=== PATIENT | male | born 1945 | race Caucasian/White ===

== ENCOUNTER 2024-08-20 14:00 | Outpatient (REF) | payer MEDICARE, SELFPAY ==
[2024-08-20 15:32] LABS: Hematocrit 35.9 % (42.0-52.0); Hemoglobin 12.5 g/dl (14.0-18.0); Mean Corpuscular HGB Conc 34.8 g/dl (31.0-36.0); Mean Corpuscular Hemoglobin 32.2 pg (27.0-33.0); Mean Corpuscular Volume 92.5 fL (80.0-98.0); Mean Platelet Volume 9.9 fL (9.4-12.4); Platelet Count 136 X10*3/uL (160-400); Red Blood Count 3.88 X10*6/uL (4.60-5.80); Red Cell Distribution Width 14.6 % (11.0-16.0); White Blood Count 8.5 X10*3/uL (4.8-10.8)
[2024-08-20 15:35] LABS: Appearance Urine Clear; Color Urine Dark Yellow; Glucose Urine UA Negative (Negative); Leukocyte Esterase Urine Negative (Negative); Nitrite Urine Negative (Negative); Specific Gravity - Urine 1.015 (1.005-1.025); UMIC TRIGGER UA YES; Urine Blood Negative (Negative); Urine Ketones Negative (Negative); Urine Protein 30 (1+) mg/dL (Neg-Trace)
[2024-08-20 16:10] LABS: Creatinine Urine 84.48 mg/dL; Total Protein Urine Random 19 mg/dL (<12)
[2024-08-20 16:18] LABS: Parathyroid Hormone Intact 99.7 pg/mL (8.7-77.1)
[2024-08-20 16:29] LABS: Alanine Aminotransferase 18 U/L (0-40); Albumin Level 4.2 g/dL (3.5-5.0); Alkaline Phosphatase 58 U/L (39-117); Anion Gap 13 (12-20); Aspartate Amino Transferase 21 U/L (5-37); Bilirubin Total 0.3 mg/dL (0.0-1.0); Blood Urea Nitrogen 50 mg/dL (9-16); Calcium 9.2 mg/dL (8.4-10.2); Carbon Dioxide 21 mmol/L (22-29); Chloride 111 mmol/L (96-108); Estimated Glomerular Filt Rate 23; Glucose Random 109 mg/dL (60-115); Potassium 5.2 mmol/L (3.3-5.1); Sodium 140 mmol/L (135-145); Total Protein 7.3 g/dL (6.5-8.0); Uric Acid 6.4 mg/dL (3.4-7.0)
[2024-08-20 16:31] LABS: Bacteria Urine None Seen (None Seen); RBC Urine 0-2 /HPF (0-2); Squamous Epithelial Cell Urine 0-2 /HPF (0-2); WBC Urine 0-5 /HPF (0-5)
== END 2024-08-20 14:01 | disposition home or self-care (01) ==
LOC: HO.LAB 14:00
PROVIDERS: PCP Internal Medicine; Referring Provider Internal Medicine; Visit Provider Internal Medicine Hypertension Specialist
DX: N18.9 Chronic kidney disease, unspecified (principal); I10 Essential (primary) hypertension; E87.5 Hyperkalemia; M10.9 Gout, unspecified; Z95.2 Presence of prosthetic heart valve
CPT/HCPCS: 36415; 80053; 81001; 82570; 83970; 84156; 84550; 85027; 99202

== ENCOUNTER 2024-08-20 14:00 | Outpatient (AMB) | payer MEDICARE, SELFPAY ==
[2024-08-20 14:02] VITALS: BP 154/78; PULSE 81; O2SAT 97; BMI 22.4
--- NOTE | 2024-08-20 14:02 | HO.NEPHOV ---
Vital Signs 08/20/24 14:02 Height 5 ft 7 in Weight 143 lb BMI 22.4 BP 154/78 H Blood Pressure Location Lt brachial Position Sitting Pulse 81 Pulse Source Pulse Oximeter Pulse Oximetry (%) 97 Oxygen Delivery Method Room Air Intake Visit Reasons: ENP: CKD/ Urgent Referral per PCP Administration Internship Required: No Accompanied by: Self / Same As Patient Allergies No Known Allergies Allergy (Verified 08/20/24 14:05) Medication List - Last Reconciled 08/20/24 by Raj Zambrano MD allopurinol 300 mg PO DAILY amlodipine 10 mg PO DAILY carvedilol 12.5 mg PO BID ezetimibe 10 mg PO DAILY irbesartan 300 mg PO DAILY tamsulosin 0.8 mg PO DAILY HPI Comments Details: Pleasant 79-year-old man referred for renal insufficiency. Ne underwent aortic valve surgery less than a year ago. For the past 1 year his blood pressure has been difficult to control he is on 3 medications including irbesartan 300 mg, carvedilol 12.5 mg b.i.d. and amlodipine 10 mg. About 6 months ago he had acute urinary retention requiring Oropeza catheter for a week. Apparently no blood test was done and did not undergo any further workup. He is on tamsulosin for possible BPH. He can not recall having a renal ultrasonogram. In November of 2023 serum creatinine was 1.24. In December 2023 creatinine was 2.2 and as of April of 2024 creatinine is at 2.8 with a EGFR of 22 mL/minute and hence this consultation No history of smoking or alcohol use. He is a retired psychiatrist. He has spent his winter in [facility]. [facility] Surgical History (Updated 08/20/24 @ 14:49 by Raj Zambrano MD) Heart valve replaced (~08/2023) Family History (Updated 08/20/24 @ 14:05 by CRISTIAN Noguera) Father Hypertension Kidney disease Review of Systems Const Denies fever(s) and Denies weight loss Card Denies chest pain Resp Denies cough and Denies hemoptysis GI Denies abdominal pain, Denies diarrhea and Denies nausea Reports urinary frequency and Denies urinary incontinence Musc Denies back pain Neuro Denies focal weakness Physical Exam Vital Signs: Last Vital Signs Pulse 81 08/20/24 14:02 BP 154/78 H 08/20/24 14:02 Pulse Ox 97 08/20/24 14:02 Oxygen Delivery Method Room Air 08/20/24 14:02 BMI result Body Mass Index 22.4 Const General: comfortable; No acute distress Orientation/consciousness: patient oriented x3 Eyes General: appearance normal, both eyes and all related structures Visual Lo: normal visual lo by confrontation Neck Neck: Yes supple and Yes no JVD Resp Effort & Inspection: normal respiratory effort and respiratory effort not decreased Cardio Palpation: no palpable S3 and no palpable S4 Heart sounds: no rubs GI Inspection: Yes normal to inspection Palpation (GI): Soft to palpation Percussion: Yes normal to percussion Auscultation: normal bowel sounds General: Yes no CVA tenderness Back/Spine/Pelvis Back: no CVA tenderness Skin General skin exam: no petechiae and no purpura Neuro General: patient oriented x3 and no focal motor deficits Extrem General: No clubbing and No edema Results Reviewed Results Reviewed: Labs was from April 2024 was reviewed Potassium 5.3 Creatinine 2.8 EGFR 22 mL/minute. Nephrology Results: No Data to Display Assessment & Plan Assessment & Plan (1) CKD (chronic kidney disease): Code(s): N18.9 - Chronic kidney disease, unspecified Category: Medical Plan: I (2) HTN (hypertension): Code(s): I10 - Essential (primary) hypertension Category: Medical (3) Aortic valve replaced: Code(s): Z95.2 - Presence of prosthetic heart valve Category: Medical (4) Gout: Code(s): M10.9 - Gout, unspecified Category: Medical (5) Hyperkalemia: Code(s): E87.5 - Hyperkalemia Category: Medical Plan CKD: Differential diagnosis includes obstructive uropathy in the setting of enlarged prostate. There could be a component of hypoperfusion leading to MICHAEL Other possibilities include doing glomerular nephritis interstitial disease need to be ruled out. I will obtain stat renal ultrasonogram. Recheck renal panel today along with potassium Hold irbesartan in view of hyperkalemia and MICHAEL Encouraged to stay on low-potassium diet Check uric acid and we will lower dose of allopurinol In the office today blood pressure was elevated. I have asked him to check his blood pressure at home and if systolic blood pressure stays elevated more than 140 mm I will add hydralazine 10 mg t.i.d. and gradually titrate the dose. Further workup will be based on the outcome of the above baseline investigations. Shall keep you updated Orders: Orders Comprehensive Met. Panel Today N18.9 - Chronic kidney disease, unspecified Total Protein Urine Random Today N18.9 - Chronic kidney disease, unspecified Parathyroid Hormone Intact Today N18.9 - Chronic kidney disease, unspecified Basic Metabolic Panel 3 Weeks N18.9 - Chronic kidney disease, unspecified Uric Acid Today N18.9 - Chronic kidney disease, unspecified US renal BI Today I10 - Essential (primary) hypertension Complete Blood Count no Diff Today N18.9 - Chronic kidney disease, unspecified UA and rflx microscopic Today N18.9 - Chronic kidney disease, unspecified Creatinine Urine Today N18.9 - Chronic kidney disease, unspecified Medications: New hydralazine 10 mg PO TID 90 tabs 1RF Coding Level of Care Code New Pt Level 4 (81735) Diagnoses CKD (chronic kidney disease) N18.9 HTN (hypertension) I10 Aortic valve replaced Z95.2 Gout M10.9 Hyperkalemia E87.5
== END 2024-08-20 14:36 | disposition home or self-care (01) ==
LOC: HO.HKA 14:00
PROVIDERS: PCP Internal Medicine; Referring Provider Internal Medicine; Visit Provider Internal Medicine Hypertension Specialist
DX: I12.9 Hypertensive chronic kidney disease with stage 1 through stage 4 chronic kidney disease, or unspecified chronic kidney disease (principal); N18.9 Chronic kidney disease, unspecified; Z95.2 Presence of prosthetic heart valve; M10.9 Gout, unspecified; E87.5 Hyperkalemia
CPT/HCPCS: 99204

== ENCOUNTER 2024-08-31 09:17 | Outpatient (REF) | payer MEDICARE, SELFPAY ==
--- NOTE | ~2024-08-31 | US_ITS ---
CLINICAL HISTORY: I10 - Essential (primary) hypertension US renal with Color Doppler Comparison: None Findings: Right kidney is slightly diminutive in size relative to the left measuring 8.1 cm length. No hydronephrosis calculus or mass. Normal color flow. Incidental renal cortical cyst lower pole measuring 3 x 2 x 3 mm Left kidney normal size and echotexture, 10.8 cm length. No hydronephrosis. No nephrolithiasis. Exophytic cyst lower pole with thin septations measuring 6.1 x 5.9 x 5.5 cm correlate with dedicated CT or MRI with contrast study renal protocol exam Impression: 1. The right kidney slightly diminutive in size relative to the left. 2. Exophytic cyst lower pole left kidney with thin septations better characterize with a contrast-enhanced MRI or CT renal protocol study. This document has been electronically signed by: Marino Porter MD on 08/31/2024 10:24:07
== END 2024-08-31 09:18 | disposition home or self-care (01) ==
LOC: HO.US 09:17
PROVIDERS: PCP Internal Medicine; Visit Provider Internal Medicine Hypertension Specialist
DX: I10 Essential (primary) hypertension (principal)
CPT/HCPCS: 76775

== ENCOUNTER 2024-09-17 13:38 | Outpatient (AMB) | payer MEDICARE, SELFPAY ==
--- NOTE | 2024-09-17 13:51 | HO.NEPHOV ---
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 En underwent aortic valve surgery less than a year ago. For the past 1 year his blood pressure has been difficult to control he is on 3 medications including irbesartan 300 mg, carvedilol 12.5 mg b.i.d. and amlodipine 10 mg. About 6 months ago he had acute urinary retention requiring Oropeza catheter for a week. Apparently no blood test was done and did not undergo any further workup. He is on tamsulosin for possible BPH. He can not recall having a renal ultrasonogram. In November of 2023 serum creatinine was 1.24. In December 2023 creatinine was 2.2 and as of April of 2024 creatinine is at 2.8 with a EGFR of 22 mL/minute and hence this consultation No history of smoking or alcohol use. 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. 09/17/24 79-year-old male presenting with elevated blood pressure. He has been experiencing erratic hypertension since undergoing aortic valve surgery about a year ago. Despite compliance with medications including losartan, carvedilol, and amlodipine, his blood pressure remains elevated, with recent readings reaching up to 180/90 mmHg. He adheres strictly to a low-salt diet and participates in regular exercise. Swelling in the feet, likely due to amlodipine, has been noted. According to historical records, his essential hypertension developed post-surgery, impacting current management strategies. The patient also reports concerns regarding a renal cyst discovered on August 31. Imaging results indicate a complex cyst on the left kidney, with mention of the right kidney being smaller. This finding is being further evaluated by a urologist due for follow-up on November 20. The ongoing review includes potential renal artery evaluation using Doppler ultrasound, as a result of hypertension, kidney injury, or medication effects. His chronic kidney disease has been managed with stable creatinine levels reported at 2.6 mg/dL, coupled with consistently low protein presence and unremarkable urine sediment. The patient has no family history of kidney disease but expresses concern, given his familial predisposition to hypertension. FOR[facility]LY [facility], [facility] Surgical History Heart valve replaced (~08/2023) Family History Father Hypertension Kidney disease Physical Exam Vital Signs: Last Vital Signs Pulse 78 09/17/24 13:52 BP 180/92 H 09/17/24 13:52 Pulse Ox 97 09/17/24 13:52 Oxygen Delivery Method Room Air 09/17/24 13:52 BMI result Body Mass Index 22.4 Const General: comfortable; No acute distress Orientation/consciousness: patient oriented x3 Eyes General: appearance normal, both eyes and all related structures Visual Lo: normal visual lo by confrontation Neck Neck: Yes supple and Yes no JVD Resp Effort & Inspection: normal respiratory effort and respiratory effort not decreased Cardio Palpation: no palpable S3 and no palpable S4 Heart sounds: no rubs GI Inspection: Yes normal to inspection Palpation (GI): Soft to palpation Percussion: Yes normal to percussion Auscultation: normal bowel sounds General: Yes no CVA tenderness Back/Spine/Pelvis Back: no CVA tenderness Skin General skin exam: no petechiae and no purpura Neuro General: patient oriented x3 and no focal motor deficits Extrem General: No clubbing and No edema Results Reviewed Nephrology Results: Hgb 12.5 g/dl (14.0-18.0) L 08/20/24 WBC 8.5 X10*3/uL (4.8-10.8) 08/20/24 Plt Count 136 X10*3/uL (160-400) L 08/20/24 Sodium 140 mmol/L (135-145) 08/20/24 Potassium 5.2 mmol/L (3.3-5.1) H 08/20/24 Chloride 111 mmol/L (96-108) H 08/20/24 Carbon Dioxide 21 mmol/L (22-29) L 08/20/24 BUN 50 mg/dL (9-16) H 08/20/24 Creatinine 2.66 mg/dL (0.5-1.4) H 08/20/24 Calcium 9.2 mg/dL (8.4-10.2) 08/20/24 PTH Intact 99.7 pg/mL (8.7-77.1) H 08/20/24 Urine Protein 30 (1+) mg/dL (Neg-Trace) H 08/20/24 Urine Creatinine 84.48 mg/dL 08/20/24 Renal US 08/31/24 Assessment & Plan Assessment & Plan (1) CKD (chronic kidney disease): Code(s): N18.9 - Chronic kidney disease, unspecified Category: Medical Plan: I (2) HTN (hypertension): Code(s): I10 - Essential (primary) hypertension Category: Medical (3) Aortic valve replaced: Code(s): Z95.2 - Presence of prosthetic heart valve Category: Surgical (4) Gout: Code(s): M10.9 - Gout, unspecified Category: Medical (5) Hyperkalemia: Code(s): E87.5 - Hyperkalemia Category: Medical Plan CKD: Hypertensive nephrosclerosis There could be a component of hypoperfusion leading to MICHAEL Other possibilities include doing glomerular nephritis interstitial disease need to be ruled out. renal ultrasonogram. NO obstruction Renal cyst noted Hold irbesartan in view of hyperkalemia and MICHAEL Encouraged to stay on low-potassium diet In the office today blood pressure was elevated. INCREASE hydralazine 25 mg t.i.d. and gradually titrate the dose. Obtain doppler of renal artery for possible ZULMA Await Urology evaluation for renal cyst Orders: Orders Basic Metabolic Panel 6 Weeks N18.9 - Chronic kidney disease, unspecified US renal doppler Today E87.5 - Hyperkalemia, I10 - Essential (primary) hypertension Medications: Changed From hydralazine 10 mg PO TID 270 tabs 4RF To hydralazine 25 mg PO TID 90 tabs 4RF Coding Level of Care Code Est Pt Level 4 (29899) Diagnoses CKD (chronic kidney disease) N18.9 HTN (hypertension) I10 Aortic valve replaced Z95.2 Gout M10.9 Hyperkalemia E87.5
[2024-09-17 13:52] VITALS: BP 180/92; PULSE 78; O2SAT 97; BMI 22.4
--- OUTSIDE RECORDS SUMMARY | 2024-09-17 16:11 | XMS_ITS | Clinical Summary ---
Author Organization [facility], Address [address] [place] [address] Phone Care Team Providers Care Mortgage Loan Assistant Name Role Phone Gerson Mitchell MD Primary Care Provider [phone] Encounters Date Type Department Care Team Description 09/02/2024 Documentation Only [facility] [address] [place] [phone] Rosemarie Leonardo MA 09/02/2024 Telephone [facility] [address] [place] [phone] Rosemarie Leonardo MA from Last 3 Months Social History Tobacco Use Types Packs/Day Years Used Date Smoking Tobacco: Never Assessed Sex and Gender Information Value Date Recorded Sex Assigned at Not on file Legal Sex Male 3:44 PM EDT Gender Identity Not on file Sexual Orientation Not on file Plan of Treatment Health Maintenance Due Date Last Done Comments Pneumococcal Vaccine: 50+ Years Completed 12/14/2015, 08/24/2010 Influenza Vaccine Completed 03/02/2024, , 01/12/2021, Additional history exists Hepatitis B Vaccine Aged Out No longe r eligible based on patient's age to complete this topic Insurance Medicare [facility] Care Teams Mortgage Loan Assistant Relationship Specialty Start Date End Date Gerson Mitchell MD [address] [place] [address] [address] [place] [address] PCP - General Internal Medicine 09/02/24
== END 2024-09-17 14:17 | disposition home or self-care (01) ==
LOC: HO.HKA 13:39
PROVIDERS: PCP Internal Medicine; Visit Provider Internal Medicine Hypertension Specialist
DX: I12.9 Hypertensive chronic kidney disease with stage 1 through stage 4 chronic kidney disease, or unspecified chronic kidney disease (principal); N18.9 Chronic kidney disease, unspecified; Z95.2 Presence of prosthetic heart valve; M10.9 Gout, unspecified; E87.5 Hyperkalemia
CPT/HCPCS: 99214

== ENCOUNTER → 2024-09-17 13:38 | Outpatient (BNVA) | payer MEDICARE, SELFPAY | PROVIDERS: PCP Internal Medicine; Visit Provider Internal Medicine Hypertension Specialist | DX: I12.9 Hypertensive chronic kidney disease with stage 1 through stage 4 chronic kidney disease, or unspecified chronic kidney disease (principal); N18.9 Chronic kidney disease, unspecified; M10.9 Gout, unspecified; E78.5 Hyperlipidemia, unspecified; Z95.2 Presence of prosthetic heart valve | CPT/HCPCS: 99212 ==

== ENCOUNTER 2024-10-26 15:51 | Outpatient (REF) | payer MEDICARE, SELFPAY ==
--- NOTE | ~2024-10-26 | US_ITS ---
EXAMINATION: Ultrasound renal bilaterally. Ultrasound renal Doppler bilaterally. CLINICAL INFORMATION: Essential/primary hypertension. Hyperkalemia. COMPARISON: August 31, 2024. TECHNIQUE: Real-time ultrasound kidneys using grayscale and color Doppler technique. Spectral color Doppler analysis of the main renal arteries and the abdominal aorta at the renal artery origin. FINDINGS: Right kidney: 7 x 4 x 4 cm. Normal echotexture. Normal renal cortical thickness. No hydronephrosis. There is a 2.5 mm hyperechoic structure at the corticomedullary junction of the upper pole. Left kidney: 10 x 6 x 6 cm. Normal echotexture. Renal cortical thinning. No hydronephrosis. There is a large, 7 cm exophytic anechoic lesion without flow on color Doppler interrogation. There are septations and questionable nodular component without flow on color Doppler interrogation. There is a 1.8 cm exophytic anechoic lesion without septations or nodular component in the lower pole. SPECTRAL DOPPLER ANALYSIS: Right Kidney: -Peak systolic velocity in the proximal right renal artery = 34 cm/s. Normal waveforms. -Peak systolic velocity in the mid right renal artery = 123 cm/s. Normal waveforms. -Peak systolic velocity in the distal right renal artery = 107 cm/s. Normal waveforms. -Patent right renal vein. -Upper pole interlobar artery resistive index of 0.5. -Midpole interlobar artery resistive index of 0.5. -Lower pole interlobar artery resistive index of 0.5. RAR right = not calculated. Left Kidney: -Peak systolic velocity in the proximal left renal artery = 133 cm/s. Normal waveforms. -Peak systolic velocity in the mid left renal artery = 72 cm/s. Normal waveforms. -Peak systolic velocity in the distal left renal artery = 48 cm/s. Normal waveforms. -Patent left renal vein. -Upper pole interlobar artery resistive index of 0.6. -Mid pole interlobar artery resistive index of 0.77. -lower pole interlobar artery resistive index of not calculated due to large cystic lesion.. RAR left = not calculated Aorta: -Peak systolic velocity = 136 cm/s. US/US renal doppler IMPRESSION: No hydronephrosis. 7 cm exophytic complex cystic lesion, left kidney. Recommend dedicated IV contrast enhanced CT versus dynamic enhanced MRI renal mass protocol. 2.5 mm nonobstructing nephrolithiasis, right kidney. No hemodynamically significant stenosis by ultrasound criteria at either main renal artery. Electronically signed by: Jayy Castañeda MD 10/27/2024 07:18 AM EDT
--- OUTSIDE RECORDS SUMMARY | 2024-10-26 16:51 | XMS_ITS | Clinical Summary ---
Author Organization [facility], Address [address] [place] [address] Phone Care Team Providers Care Translational Specialist Name Role Phone Gerson Mitchell MD Primary Care Provider [phone] Encounters Date Type Department Care Team Description 09/02/2024 Documentation Only [facility] [address] [place] [phone] Rosemarie Leonardo MA 09/02/2024 Telephone [facility] [address] [place] [phone] Rosemarie Leonardo MA from Last 3 Months Social History Tobacco Use Types Packs/Day Years Used Date Smoking Tobacco: Never Assessed Sex and Gender Information Value Date Recorded Sex Assigned at Not on file Legal Sex Male 3:44 PM EDT Gender Identity Not on file Sexual Orientation Not on file Plan of Treatment Health Maintenance Due Date Last Done Comments Influenza Vaccine (#1) 2024 4, 01/02/2023, 01/12/2021, Additional history exists Pneumococcal Vaccine: 50+ Years Completed 12/14/2015, 08/24/2010 Hepatitis B Vaccine Aged Out No longe r eligible based on patient's age to complete this [place] [id number] Medicare [facility] Care Teams Translational Specialist Relationship Specialty Start Date End Date Gerson Mitchell MD [address] [place] [address] [address] [place] [address] PCP - General Internal Medicine 09/02/24
== END 2024-10-26 15:52 | disposition home or self-care (01) ==
LOC: HO.US 15:51
PROVIDERS: PCP Internal Medicine; Visit Provider Internal Medicine Hypertension Specialist
DX: E87.5 Hyperkalemia (principal); I10 Essential (primary) hypertension
CPT/HCPCS: 76775; 93975

== ENCOUNTER → 2024-10-26 15:53 | Outpatient (BNV) | payer MEDICARE, SELFPAY | PROVIDERS: PCP Internal Medicine; Visit Provider Radiology Diagnostic Radiology | DX: I10 Essential (primary) hypertension (principal); N28.1 Cyst of kidney, acquired; N20.0 Calculus of kidney | CPT/HCPCS: 76775; 93975 ==

== ENCOUNTER 2024-11-12 10:38 | Outpatient (AMB) | payer MEDICARE, SELFPAY ==
[2024-11-12 10:47] VITALS: BP 142/81; PULSE 69; O2SAT 98; BMI 22.0
--- NOTE | 2024-11-12 10:47 | HO.NEPHOV_ITS ---
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 Maintenance Tech Required: No Accompanied by: Self / Same As Patient Allergies No Known Allergies Allergy (Verified 11/12/24 10:51) Medication List - Last Reconciled 11/12/24 by Raj Zambrano MD amlodipine 10 mg PO DAILY carvedilol 12.5 mg PO BID ezetimibe 10 mg PO DAILY hydralazine 25 mg PO TID tamsulosin 0.8 mg PO DAILY Do you need a note to return to daycare/school/sports/work: No HPI Comments Details: Pleasant 79-year-old man referred for renal insufficiency. Ne underwent aortic valve surgery less than a year ago. For the past 1 year his blood pressure has been difficult to control he is on 3 medications including irbesartan 300 mg, carvedilol 12.5 mg b.i.d. and amlodipine 10 mg. About 6 months ago he had acute urinary retention requiring Oropeza catheter for a week. Apparently no blood test was done and did not undergo any further workup. He is on tamsulosin for possible BPH. He can not recall having a renal ultrasonogram. In November of 2023 serum creatinine was 1.24. In December 2023 creatinine was 2.2 and as of April of 2024 creatinine is at 2.8 with a EGFR of 22 mL/minute and hence this consultation No history of smoking or alcohol use. He is a retired psychiatrist. He has spent his winter in [facility]. 09/17/24 79-year-old male presenting with elevated blood pressure. He has been experiencing erratic hypertension since undergoing aortic valve surgery about a year ago. Despite compliance with medications including losartan, carvedilol, and amlodipine, his blood pressure remains elevated, with recent readings reaching up to 180/90 mmHg. He adheres strictly to a low-salt diet and participates in regular exercise. Swelling in the feet, likely due to amlodipine, has been noted. According to historical records, his essential hypertension developed post-surgery, impacting current management strategies. The patient also reports concerns regarding a renal cyst discovered on August 31. Imaging results indicate a complex cyst on the left kidney, with mention of the right kidney being smaller. This finding is being further evaluated by a urologist due for follow-up on November 20. The ongoing review includes potential renal artery evaluation using Doppler ultrasound, as a result of hypertension, kidney injury, or medication effects. His chronic kidney disease has been managed with stable creatinine levels reported at 2.6 mg/dL, coupled with consistently low protein presence and unremarkable urine sediment. The patient has no family history of kidney disease but expresses concern, given his familial predisposition to hypertension. 11/12/2024. Here for follow-up. No specific complaints today. Underwent renal ultrasonogram with Doppler. No evidence of renal artery stenosis Has not seen Urology yet for renal cyst Referral was based in August 2024. PSA has been elevated and he has an appointment in [place] in the next 2 weeks with a different urologist [facility] Surgical History Heart valve replaced (~08/2023) Family History Father Hypertension Kidney disease Physical Exam Vital Signs: Last Vital Signs Pulse 69 11/12/24 10:47 BP 142/81 H 11/12/24 10:47 Pulse Ox 98 11/12/24 10:47 Oxygen Delivery Method Room Air 11/12/24 10:47 BMI result Body Mass Index 22.0 Const General: comfortable; No acute distress Orientation/consciousness: patient oriented x3 Eyes General: appearance normal, both eyes and all related structures Visual Lo: normal visual lo by confrontation Neck Neck: Yes supple and Yes no JVD Resp Effort & Inspection: normal respiratory effort and respiratory effort not decreased Cardio Palpation: no palpable S3 and no palpable S4 Heart sounds: no rubs GI Inspection: Yes normal to inspection Palpation (GI): Soft to palpation Percussion: Yes normal to percussion Auscultation: normal bowel sounds General: Yes no CVA tenderness Back/Spine/Pelvis Back: no CVA tenderness Skin General skin exam: no petechiae and no purpura Neuro General: patient oriented x3 and no focal motor deficits Extrem General: No clubbing and No edema Results Reviewed Results Reviewed: October 2024 Creatinine 2.6 potassium 4.2. Nephrology Results: Hgb, (14.0-18.0) 12.5 g/dl L 08/20/24 WBC, (4.8-10.8) 8.5 X10*3/uL 08/20/24 Plt Count, (160-400) 136 X10*3/uL L 08/20/24 Sodium, (135-145) 140 mmol/L 08/20/24 Potassium, (3.3-5.1) 5.2 mmol/L H 08/20/24 Chloride, (96-108) 111 mmol/L H 08/20/24 Carbon Dioxide, (22-29) 21 mmol/L L 08/20/24 BUN, (9-16) 50 mg/dL H 08/20/24 Creatinine, (0.5-1.4) 2.66 mg/dL H 08/20/24 Calcium, (8.4-10.2) 9.2 mg/dL 08/20/24 PTH Intact, (8.7-77.1) 99.7 pg/mL H 08/20/24 Urine Protein, (Neg-Trace) 30 (1+) mg/dL H 08/20/24 Urine Creatinine 84.48 mg/dL 08/20/24 Renal US 10/26/24 Assessment & Plan Assessment & Plan (1) CKD (chronic kidney disease): Code(s): N18.9 - Chronic kidney disease, unspecified Category: Medical Plan: I (2) HTN (hypertension): Code(s): I10 - Essential (primary) hypertension Category: Medical (3) Aortic valve replaced: Code(s): Z95.2 - Presence of prosthetic heart valve Category: Surgical (4) Gout: Code(s): M10.9 - Gout, unspecified Category: Medical (5) Hyperkalemia: Code(s): E87.5 - Hyperkalemia Category: Medical Plan CKD: Hypertensive nephrosclerosis There could be a component of hypoperfusion leading to MICHAEL Other possibilities include doing glomerular nephritis interstitial disease need to be ruled out. renal ultrasonogram. NO obstruction Renal cyst noted Hold irbesartan in view of hyperkalemia and MICHAEL Encouraged to stay on low-potassium diet In the office today blood pressure was elevated. INCREASE hydralazine 25 mg t.i.d. and gradually titrate the dose. Obtain doppler of renal artery for possible ZULMA Await Urology evaluation for renal cyst 11/12/2024. CKD 4. Renal function stable at baseline. Hyperkalemia stance corrected. Hypertension blood pressure is well controlled. No renal artery stenosis by renal Doppler. Mild leg edema due to amlodipine. Complex renal cyst. Await Urology evaluation. He is going to [place] and we will follow up with the urologist there. I gave him the option to see the urologist here locally but he preferred to stay in [place]. Orders: Orders Basic Metabolic Panel 3 Months I10 - Essential (primary) hypertension, N18.9 - Chronic kidney disease, unspecified Coding Level of Care Code Est Pt Level 4 (92602) Diagnoses CKD (chronic kidney disease) N18.9 HTN (hypertension) I10 Aortic valve replaced Z95.2 Gout M10.9 Hyperkalemia E87.5
--- OUTSIDE RECORDS SUMMARY | 2024-11-12 11:23 | XMS_ITS | Clinical Summary ---
Author Organization [facility], Address [address] [place] [address] Phone Care Team Providers Care Circulation Director Name Role Phone Gerson Mitchell MD Primary Care Provider [phone] Encounters Date Type Department Care Team Description 09/02/2024 Documentation Only [facility] [address] [place] [id number] Rosemarie Leonardo MA 09/02/2024 Telephone [facility] [address] [place] [phone] Rosemarie Leonardo MA from Last 3 Months [...] complete this [place] [id number] Medicare [facility] Care Teams Circulation Director Relationship Specialty Start Date End Date Gerson Mitchell MD [address] [place] [address] [address] [place] [address] PCP - General Internal Medicine 09/02/24
--- OUTSIDE RECORDS SUMMARY | 2024-11-12 11:23 | XMS_ITS | Clinical Summary ---
Author Organization Located Within [facility] Address [address] [place] [id number] Phone Care Team Providers Care Laborer Name Role Phone Danay Roman MANAGER FRENCH Unavailable [phone] Abi Mcfarland FIGURE SKATER Unavailable [phone] Gerson Mitchell MD Primary Care Provider [phone] Gerson Mitchell MD Unavailable [phone] Rickie Turner MD Unavailable [phone] Allergies No known active allergies Medications GRAPE SEED EXTRACT, BULK, MISC Active BROMELAINS ORAL Take 1 capsule by mouth as needed. Active b complex vitamins capsule Take 1 capsule by mouth daily. Active aspirin 81 MG EC tablet Take 1 tablet (81 mg total) by mouth daily. 90 tablet 5 09/16/19 24 Active colchicine (COLCRYS) 0.6 mg tablet Take 0.6 mg by mouth as needed (gout flare). 09/28/19 24 Active amoxicillin (AMOXIL) 500 MG capsule Take 4 capsules (2,000 mg total) by mouth once as needed (take all 4 capsules 30-60 minutes prior to dental work). 12 capsule 11/15/19 24 Active Additional Information Patient not taking.Reported on 10/27/2024 ezetimibe (ZETIA) 10 mg tablet Take 1 tablet (10 mg total) by mouth daily. 90 tablet 5 01/09/20 24 Active carvedilol (COREG) 12.5 MG tablet Take 1 tablet (12.5 mg total) by mouth 2 (two) times a day with meals. 180 tablet 5 01/09/20 24 025 Active Additional Information Patient taking differently:12.5 mg Oral3 times daily, Reported on 10/27/2024 irbesartan (AVAPRO) 300 MG tabletIndication s:Essential hypertension Take 1 tablet (300 mg total) by mouth daily. 90 tablet 1 07/09/19 25 Active Additional Information Patient not taking.Reported on 10/27/2024 tamsulosin (FLOMAX) 0.4 mg CapIndications:B PH associated with nocturia Take 2 capsules (0.8 mg total) by mouth nightly at bedtime. 180 capsule 2 07/28/19 25 Active hydrALAZINE (APRESOLINE) 25 MG tablet Take 1 tablet (25 mg total) by mouth 3 (three) times a day. 90 tablet 5 11/05/19 25 Active amLODIPine (NORVASC) 10 MG tabletIndication s:Essential hypertension Take 1 tablet (10 mg total) by mouth daily. 90 tablet 3 11/05/19 25 025 Active amLODIPine (NORVASC) 10 MG tabletIndication s:Essential hypertension Take 1 tablet (10 mg total) by mouth daily. 90 tablet 3 09/18/19 25 025 Discontin ued(Reord er) hydrALAZINE (APRESOLINE) 10 MG tablet Take 10 mg by mouth 3 (three) times a day. 09/16/19 25 025 Discontin ued(Reord er) Hospital, Clinic, or Other Facility Administered Medication Ordered Dose Route Frequency Start Date End Date Status sodium chloride (NS) 0.9 % syringe flush 3 mL 3 mL IV As needed 09/16/2023 Active Active Problems Problem Noted Date Diagnosed Date Presence of prosthetic heart valve 11/14/2023 Adverse effect of anesthetic 11/13/2023 Overview (11/13/2023): difficulty voiding after surgery Aortic valve disease 11/13/2023 Carotid stenosis 11/13/2023 Overview (11/13/2023): s/p CEA HTN (hypertension) 11/13/2023 Wears glasses 11/13/2023 Chronic kidney disease 11/13/2023 Assessment & Plan (04/13/2024 9:28 AM EST): Seems that his creatinine is worsening. Now up to 2.8 from 2.2 in November He did get a CTA done about a month ago He is not hydrating well he says I have encouraged him to maintain good hydration I have asked him to set up follow-up with his PCP as he does not have any follow-up currently scheduled Recheck labs in a month Nonrheumatic aortic valve stenosis 09/16/2023 Assessment & Plan (10/27/2024 8:50 AM EDT): TAVR with a 23 mm YANETH valve on 11/14/2023. Echo on 09/2024-Mild to moderate LVH with dynamic LV systolic function EF 65 to 70%. Normal PA pressure estimation. Normal RV size and function. Normal diastolic function for age. There is a TAVR in the aortic position peak velocity 3.3 m/s mean gradient 24 mmHg. Appears to function normally and is well-seated. Unchanged from prior echoes. We will continue with yearly echoes. Patient actually still is in cardiac rehab has 4 more visits and he is doing well with exercise. Assessment & Plan (04/13/2024 9:22 AM EST): TAVR with a 23 mm YANETH valve on 11/14/2023 Valve functioning well on cardiac CTA which was done 03/10/2024 He is already scheduled for repeat echocardiogram in September 2024 He can follow-up here in the office after echo is completed Nonischemic cardiomyopathy 09/06/2023 Dyspnea on exertion 09/04/2023 Assessment & Plan (09/04/2023 10:21 AM EDT): Patient reporting new dyspnea on exertion, which does seem to be consistent with when he restarted irbesartan 150 mg daily. EKG in office shows a new RBBB; reviewed these results with Dr. Mitchell, collaborating physician. Recommendation for nuclear stress test and echocardiogram for further evaluation of symptoms and EKG changes. Patient in agreement with plan. We discussed red flags that would prompt sooner evaluation at ED, such as shortness of breath that does not resolve at rest, or new chest pain. Systolic murmur 09/04/2023 Assessment & Plan (09/04/2023 9:06 AM EDT): As above, patient does have a chronic systolic murmur. Last echocardiogram in 2019 reviewed. Will update echocardiogram, with evaluation of valvular function. Stage 3b chronic kidney disease 07/24/2023 Assessment & Plan (09/04/2023 9:06 AM EDT): Asymptomatic. Patient advised on adequate fluid intake, low sodium and potassium intake, and avoiding renal toxic medications. Assessment & Plan (07/24/2023 10:54 AM EDT): Asymptomatic. Patient advised on adequate fluid intake, low sodium and potassium intake, and avoiding renal toxic medications. Will repeat BMP in 6 weeks for reevaluation. 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 Monitor and follow-up for any acute flareups. 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 He has no focal neurologic deficits on exam making acute stroke less likely. His history of greater than 90% left carotid stenosis for which he underwent endarterectomy 2-3 years ago, and evidence of lacunar infarct on CT scan of the brain today are concerning. He should have full workup for stroke/TIA. Plan to monitor on telemetry, check lipid panel and hemoglobin A 1C. He self discontinued low-dose aspirin some time ago, will resume at higher dose. Echo, MRI and MRA the brain ordered for the morning. Benign prostatic hyperplasia 08/28/2017 Assessment & Plan (07/24/2023 10:54 AM EDT): Ongoing issues with urinary frequency and urgency. Elevated PSA. Will place referral to [facility] urology for further evaluation; patient would be interested in PAE as treatment option for his BPH. Assessment & Plan (08/28/2017 2:19 PM EDT): Stable on [place]. F/u for any worsening urinary frequency or urgency. Pt verbalizes understanding and in agreement with plan. Hyperlipidemia 08/28/2017 Assessment & Plan (10/27/2024 8:51 AM EDT): Patient previously intolerant to statins. He has been taking Zetia 10 mg daily most recent LDL 125. Patient would like to get an updated lipid panel I have ordered this. He can discuss PCSK9 inhibitor if needed with at his next follow-up depending on what his updated LDL shows. Assessment & Plan (04/13/2024 9:23 AM EST): His lipids have significant improved since he was started on Zetia. Previously intolerant to statins so is not on statin therapy at this time. Ideally would like to see his LDL lower. Unsure about PCSK9 inhibitor at this time. We can discuss further with Dr. Turner when he follows up with him next. Continue Zetia Lab Results Component Value Date CHOL 185 04/11/2024 HDL 46 04/11/2024 LDL 125 04/11/2024 TRIG 71 04/11/2024 CHOLHDL 4.0 04/11/2024 Assessment & Plan (07/24/2023 10:53 AM EDT): As above. Recommend Mediterranean diet and regular exercise. Assessment & Plan (08/28/2017 2:21 PM EDT): Side effects reported to Pravastatin use. Will check fasting lipid today. Patient advised on regular exercise and Mediterranean diet to reduce cholesterol. Allergic rhinitis with postnasal drip 08/28/2017 Assessment & Plan (09/04/2023 9:05 AM EDT): Patient advised to try Flonase or Nasacort nasal spray for seasonal allergies. Avoid antihistamines or decongestants due to BPH. Assessment & Plan (08/28/2017 2:19 PM EDT): Stable and improved with Bromelain supplements. F/u as needed. Essential hypertension 07/02/2017 Assessment & Plan (10/27/2024 8:49 AM EDT): Blood pressure today 168/100. Patient tells me he frequently checks his blood pressure at home and it has not been greater than 140/80. He has been following up with renal as he tells me his had a worsening in his kidney function. Renal stopped his losartan and started him on hydralazine for his blood pressure control. Patient also has been taking amlodipine every other day due to leg swelling if he is on this medication daily. Patient tells me this has been working for him. He does have a follow-up with renal next week to go over his blood pressure and to go over a recent renal scan that was done. For now I am not going to change any blood pressure medications as he is closely following with renal blood pressures at home are 140/80. Patient educated on HTN pathophysiology, htn medication, importance of low salt DASH heart healthy diet, exercise and home B/P monitoring. Patient will continue on current medications without change. Assessment & Plan (04/13/2024 9:21 AM EST): Blood pressure seems to be better controlled, 128/84 here in the office today after taking his morning antihypertensives. He is still monitoring this at home and is getting readings 140s/80s although he thinks he is checking his numbers prior to taking his antihypertensives. We are to continue his current antihypertensives without change for now. I have asked him to start checking his blood pressure readings in the morning an hour after taking his antihypertensives and after resting for 5 minutes. He is going to call me and let me know if blood pressures persistently above 130/80. We did discuss importance of following a low-sodium diet, his does most of the cooking and he is good to talk with her about reviewing sodium content in food they are using. Recommended less than 2000 mg/day. Assessment & Plan (09/04/2023 9:03 AM EDT): Patient presents to the office for follow-up on hypertension, with improved blood pressure in office today but concerns for side effects to current regimen of irbesartan. Will stop irbesartan and start amlodipine 5 mg daily. Patient instructed on medication use, potential side effects and adverse effects. Follow-up in 2-3 weeks for reevaluation of blood pressure. Patient in agreement with plan. Assessment & Plan (07/24/2023 10:01 AM EDT): Elevated blood pressure in the office today, although patient admits that he has not been taking his irbesartan. Recommend restarting irbesartan 150 mg daily and monitor blood pressure at home. If blood pressures not improving to the 130s systolic prior to his upcoming cataract surgery date, patient advised to reach out and we may consider additional antihypertensive therapy. Patient verbalizes understanding and in agreement with plan. Assessment & Plan (08/28/2017 2:19 PM EDT): Elevated in office, but well controlled based on home readings. Likely some white coat syndrome. Continue Chlorthalidone. Will check BMP today. Pt verbalizes understanding and in agreement with plan. History of endarterectomy 07/02/2017 Assessment & Plan (07/24/2023 10:53 AM EDT): Recent carotid ultrasound reassuring. Would recommend good blood pressure control. Patient has been unable to tolerate statin therapy, but could always consider referral to cardiology to discuss PSK 9 inhibitors. Encounters Date Type Department Care Team Description 11/07/2024 10:25 AM EDT - 11/07/2024 11:59 PM EDT Hospital Encounter [facility] [address] [place] [address] Gerson Mitchell MD Discharge Disposition: Home or Self Care 11/06/2024 Orders Only [facility] RAD [address] [place] [address] Edgar Valladares MD Benign prostatic hyperplasia with lower urinary tract symptoms, symptom details unspecified (Primary Dx) 11/05/2024 Telephone [facility] Urology [address] [facility] [address] [place] [address] Brittaney Hassan 11/04/2024 10:45 AM EDT Office Visit [facility] Cardiopulmonary Rehabilitation [address] [place] [address] Rickie Turner MD S/P TAVR (transcatheter aortic valve replacement) (Primary Dx) 11/04/2024 Plan of Care Documentation [facility] Cardiopulmonary Rehabilitation [address] [place] [address] 11/04/2024 Orders Only [facility] [address] Floor, [address] [place] [address] Rickie Turner MD Essential hypertension 11/04/2024 Orders Only [facility] Medicine Virtual Department [address] [place] [phone] Rickie Turner MD 10/28/2024 Orders Only [facility] Internal Medicine [address] [place] [address] [address] [place] [address] Venus Perez MD 10/27/2024 8:30 AM EDT Office Visit [address] Floor, [address] [place] [address] Esperanza Montoya DNP Essential hypertension (Primary Dx); Pure hypercholesterolem ia; Benign essential hypertension; Nonrheumatic aortic valve stenosis 10/14/2024 9:15 AM EDT Telemedicine - audio only [facility] [address] [place] [address] Isabela Marlow PA-C DiStefano, Jessica, PA-C S/P TAVR (transcatheter aortic valve replacement) (Primary Dx) 10/09/2024 11:14 AM EDT - 10/09/2024 11:59 PM EDT Hospital Encounter [facility] Echo Lab [address] [place] [address] Felicitas Pastrana MD Discharge Disposition: Home or Self Care 10/07/2024 10:45 AM EDT Office Visit [facility] Cardiopulmonary Rehabilitation [address] [place] [address] Rickie Turner MD S/P TAVR (transcatheter aortic valve replacement) (Primary Dx) 10/07/2024 Plan of Care Documentation [facility] Cardiopulmonary Rehabilitation [address] [place] [phone] 09/25/2024 10:45 AM EDT Office Visit [facility] Cardiopulmonary Rehabilitation [address] [place] [address] Rickie Turner MD S/P TAVR (transcatheter aortic valve replacement) (Primary Dx) 09/23/2024 10:45 AM EDT Office Visit [facility] Cardiopulmonary Rehabilitation [address] [place] [address] Rickie Turner MD S/P TAVR (transcatheter aortic valve replacement) (Primary Dx) 09/21/2024 10:45 AM EDT Office Visit [facility] Cardiopulmonary Rehabilitation [address] [place] [address] Rickie Turner MD S/P TAVR (transcatheter aortic valve replacement) (Primary Dx) 09/14/2024 10:45 AM EDT Office Visit [facility] Cardiopulmonary Rehabilitation [address] [place] [address] Rickie Turner MD S/P TAVR (transcatheter aortic valve replacement) (Primary Dx) 09/11/2024 10:45 AM EDT Office Visit [facility] Cardiopulmonary Rehabilitation [address] [place] [phone] Rickie Turner MD S/P TAVR (transcatheter aortic valve replacement) (Primary Dx) 09/09/2024 Plan of Care Documentation [facility] Cardiopulmonary Rehabilitation [address] [place] [address] 09/09/2024 Documentation [facility] Cardiopulmonary Rehabilitation [address] [place] [address] Kori Ellington CR Assessment 08/31/2024 Orders Only [facility] [address] [address] ProviderVenus MD 08/28/2024 10:45 AM EDT Office Visit [facility] Cardiopulmonary Rehabilitation [address] [place] [address] Rickie Turner MD S/P TAVR (transcatheter aortic valve replacement) (Primary Dx) 08/26/2024 10:45 AM EDT Office Visit [facility] Cardiopulmonary Rehabilitation [address] [place] [address] Rickie Turner MD S/P TAVR (transcatheter aortic valve replacement) (Primary Dx) 08/21/2024 Orders Only [facility] Internal Medicine [address] [facility] [address] [place] [address] ProviderVenus MD 08/19/2024 10:45 AM EDT Office Visit [facility] Cardiopulmonary Rehabilitation [address] [place] [address] Rickie Turner MD S/P TAVR (transcatheter aortic valve replacement) (Primary Dx) 08/17/2024 10:45 AM EDT Office Visit [facility] Cardiopulmonary Rehabilitation [address] [place] [address] Rickie Turner MD S/P TAVR (transcatheter aortic valve replacement) (Primary Dx) 08/14/2024 10:45 AM EDT Office Visit [facility] Cardiopulmonary Rehabilitation [address] [place] [address] Rickie Turner MD S/P TAVR (transcatheter aortic valve replacement) (Primary Dx) 08/12/2024 Plan of Care Documentation [facility] Cardiopulmonary Rehabilitation [address] [place] [phone] 08/12/2024 Documentation [facility] Cardiopulmonary Rehabilitation [address] [place] [address] Kori Ellington CR Assessment 11/15/2023 Procedure Pass [facility] Echo Lab [address] [place] [phone] from Last 3 Months Immunizations Immunization Administration Dates Next Due COVID-19 (Pre-02/04) Pfizer Vaccine, mRNA, PF 07/23/2021,06/08/2020,05/18/2020 Hepatitis A, Unspecified 12/18/2011 Influenza High-Dose Quadriva lent Preservative Free IM 12/26/2021 Influenza High-Dose Trivalen t Preservative Free IM 02/01/2015,02/04/2014,03/09/2013 Influenza Quadrivalent Adjuv anted Preservative Free IM 01/02/2023,01/12/2021 Influenza Quadrivalent Prese rvative Free IM 12/24/2019,02/12/2018,02/28/2017,12/22 Influenza Trivalent Adjuvant ed Preservative free IM 03/02/2024,01/08/2019,02/12/2018 Influenza Trivalent Preserva tive Free IM 12/14/2015 Influenza Trivalent w/ Preservative IM 2 Influenza, Unspecified Formulation 12/24/2019, Pneumococcal conjugate PCV13 12/14/2015 Pneumococcal polysaccharide PPSV23 08/24/2010 RSV Vaccine (monovalent, adjuvanted) 03/30/2023 Tdap 12/22/2010 Typhoid, ViCPs 12/18/2011 Typhoid, unspecified formulation 12/18/2011 Zoster live 08/25/2013 Zoster recombinant 03/09/2019,01/08/2019 Family History Medical History Relation Comments No Known Problems Brother No Known Problems Daughter Hypertension Father at 91 Kidney failure Father Pulmonary embolism Mother No Known Problems Son Relation Status Comments Brother Alive Daughter Alive Father Mother Son Alive Social History Tobacco Use Types Packs/Day Years Used Date Smoking Tobacco: Never Smokeless Tobacco: Never Tobacco Cessation:Counseling Given: Not Answered Alcohol Use Standard Drinks/Week Comments Yes 1 (1 standard drink = 0.6 oz pur e alcohol) rarely few time a month Education Answer Date Recorded Are you interested in more education? Not on trista e 08/10/2022 Are you concerned about learning? Not on file 08/10/2022 No 08/10/2022 No 08/10/2022 Digital Access Answer Date Recorded No 09/10/2022 No 09/10/2022 Reliable internet access at home? Not on file 09/10/2022 Device with a working camera? Not on file Intimate Partner Violence Answer Date R ecorded Are you denied basic needs s uch as food, clothing, or medical care? No 11/14/2023 In the past 12 months have y ou been in a relationship with a person who hurts, threatens, or tries to control you? No 11/14/2023 Are you denied basic needs s uch as food, clothing, or medical care? No 11/14/2023 In the past 12 months have y ou been in a relationship with a person who hurts, threatens, or tries to control you? No 11/14/2023 Sex and Gender Information Value Date Recorded Sex Assigned at Male 05/15/2020 7:48 PM EST Legal Sex Male 10:10 PM EDT Gender Identity Male 05/15/2020 7:48 PM EST Sexual Orientation Straight 09/08/2023 7: 48 AM EDT Last Filed Vital Signs Vital Sign Reading Time Taken Comments Blood Pressure 168/100 10/27/2024 8:23 AM EDT Pulse 81 10/27/2024 8:23 AM EDT Temperature 36.4 C (97.5 F) 07/24/2024 9:00 AM EDT Respiratory Rate 18 04/19/2024 1:33 PM EST Oxygen Saturation 98% 10/27/2024 8:23 AM EDT Inhaled Oxygen Concentration - - Weight 62.6 kg (138 lb) 10/27/2024 8:23 AM EDT Height 170.2 cm (5' 7.01 ) 10/27/2024 8:23 AM ED T Body Mass Index 21.61 10/27/2024 8:23 AM EDT Plan of Treatment Upcoming Encounters Date Type Department Care Team (Late st Contact Info) Description 11/13/2024 4:00 PM EDT Office Visit [facility] [address] [place] [address], [address] [place] [phone] Esperanza Montoya, [address] [address] 11/18/2024 9:35 AM EDT Office Visit [facility] Cardiopulmonary Rehabilitation [address] [place] [address] Rickie Turner MD [address] [place] [address], [address] [address] 11/20/2024 9:35 AM EDT Office Visit [facility] Cardiopulmonary Rehabilitation [address] [place] [address] Rickie Turner MD [address] [facility], [address] [place] [address] 11/24/2024 11:00 AM EDT Office Visit [facility] Urology [address] [place] [address] Yovani Gillis MD [address] [place] [address] [email or web address] 07/26/2025 11:20 AM EDT Office Visit [facility] [address] [facility] 3rd Floor, [address] [place] [address] Xavier Lee MD [address] [facility], [address] [place] [phone] [email or web address] Health Maintenance Due Date Last Done Comments COLOGUARD 1988 FIT TEST 1988 FOBT 1988 SIGMOIDOSCOPY 1988 VIRTUAL COLONOSCOPY 1988 COLONOSCOPY 03/25/2020 03/25/2015 COLORECTAL CANCER SCREENING 03/25/2020 Adult Td,Tdap Booster 12/22/2020 12/22/2010 COVID-19 VACCINE ( season) 2024 12/16/2023, 01/10/2023, 01/02/2022, Additional history exists DEPRESSION SCREENING 02/25/2025 02/26/2024, 03/22/20 21 LIPID PANEL 04/11/2025 04/11/2024, 12/14, 04/02/2023, Additional history exists BLOOD PRESSURE 04/29/2025 10/27/2024 CREATININE LEVEL 11/07/2025 11/07/2024, 07/2024, 04/11/2024, Additional history exists POTASSIUM LEVEL 11/07/2025 11/07/2024, 07/2024, 04/11/2024, Additional history exists HEPATITIS A VACCINES Aged Out 12/18/2011 No long er eligible based on patient's age to complete this topic PNEUMOCOCCAL VACCINES (50+ years) Completed 12/14/2015, 08/24/2010 ZOSTER VACCINES Completed 03/09/2019, 12/15, 08/25/2013 RSV VACCINE Completed 03/30/2023 HIB VACCINES Aged Out No longer eligi ble based on patient's age to complete this topic MENINGOCOCCAL VACCINES (ACWY) Aged Out No longer eligible based on patient's age to complete this topic MENINGOCOCCAL VACCINES (B) Aged Out N o longer eligible based on patient's age to complete this topic Medical Devices Implanted Type Area Lead Application Architect Device Identifier Shelf Expiration Date Model / Serial / Lot Commander Ultra 23mm S3 - [id number] Implanted:Qty : 1 on 11/14/2023 by Alex Cook MD at [facility] Prosthetic Valve Heart [place] 05/09/2026 [id number] / [id number] / Bilateral Inguinal Mesh Procedures Procedure Name Priority Date/Time Associated Diagnosis Comments PSA DIAGNOSTIC (MONITORING) Routine 11/07/2024 10:33 AM EDT BPH with elevated PSA COMPREHENSIVE METABOLIC PANEL Routine 11/07/2024 10:33 AM EDT Stage 3b chronic kidney disease Essential hypertension CBC Routine 11/07/2024 10:33 AM EDT Stage 3b chronic kidney disease Essential hypertension OUTSIDE US IMAGING REPORT ONLY Routine 10/28/2024 7:51 AM EDT TTE COMPREHENSIVE Routine 10/09/2024 11:52 AM EDT Aortic valve stenosis, etiology of cardiac valve disease unspecified OUTSIDE IMAGING Routine 08/31/2024 1:35 PM EDT OUTSIDE LAB Routine 08/21/2024 2:57 PM EDT LIPID PANEL Routine 04/11/2024 8:30 AM EST Pure hypercholesterolemia HM COLONOSCOPY FOR RESULT ENTRY ONLY Routine 03/25/2015 from Last 3 Months or Most Recently Relevant to Health Maintenance Results * (ABNORMAL) Comprehensive metabolic panel (11/07/2024 10:33 AM EDT) SODIUM 143 133 - 146 mmol/L [facility] POTASSIUM 4.2 3.3 - 5.1 mmol/L [facility] CHLORIDE 107 96 - 108 mmol/L [facility] CO2 24 21 - 35 mmol/L [facility] BUN 30(H) 6 - 19 mg/dL [facility] CREATININE 2.60(H) 0.5 - 1.5 mg/dL [facility] GLUCOSE 142(H) 70 - 99 mg/dL [facility] ALBUMIN 4.0 3.9 - 4.8 g/dL [facility] TOTAL PROTEIN 7.1 6.5 - 8.0 g/dL [facility] CALCIUM 9.1 8.4 - 10.3 mg/dL [facility] ALKALINE PHOSPHATASE 53 39 - 117 U/L [facility] TOTAL BILIRUBIN 0.3 0.0 - 1.2 mg/dL [facility] AST 13 0 - 37 U/L [facility] ALT 8 0 - 40 U/L [facility] GLOBULIN 3.1 1 - 4.8 g/dL [facility] EGFR 24(L) >59 mL/min/1.7 3m2 [facility] Comment:Estimated glomerular filtration rate calculated using the CKD-EPI refit equation. ANION GAP 16 10 - 20 mmol/L [facility] Blood 11/07/2024 10:3 3 AM EDT 11/07/2024 10:36 AM EDT us Gerson Mitchell MD LAB BLOOD ORDERABLES Final R esult [facility] [address] [place] [address] * (ABNORMAL) PSA diagnostic (monitoring) (11/07/2024 10:33 AM EDT) PSA 11.70(H) 0 - 4.00 ng/mL [facility] Comment: Test Methodology Dawit [id number] Patient results determined by assays using different manufacturers or methods may not be comparable. Blood 11/07/2024 10:3 3 AM EDT 11/07/2024 10:36 AM EDT us Gerson Mitchell MD LAB BLOOD ORDERABLES Final R esult Performing Organization Address City/[facility] Co de Phone Number [address] [address] * (ABNORMAL) CBC (11/07/2024 10:33 AM EDT) WBC 8.08 4.00 - 11.00 K/uL [facility] RBC 4.40(L) 4.50 - 5.90 M/uL [facility] HGB 13.5 13.5 - 17.5 g/dL [facility] HCT 41.6 41.0 - 53.0 % [facility] PLT 144(L) 150 - 450 K/uL [facility] MCV 94.5 80.0 - 100.0 fL [facility] MCH 30.7 27.0 - 31.0 pg [facility] MCHC 32.5 32.0 - 36.0 g/dL [facility] RDW 13.5 11.5 - 14.5 % [facility] MPV 10.5 8.4 - 12.0 fL [facility] NRBC 0.00 0.00 /100 WBCs [facility] ABSOLUTE NRBC 0.00 0.00 K/uL [facility] Blood 11/07/2024 10:3 3 AM EDT 11/07/2024 10:36 AM EDT us Gerson Mitchell MD LAB BLOOD ORDERABLES Final R esult Performing Organization Address City/[facility]/ZIP Co de Phone Number [address] [address] * Outside US Imaging??Report Only (10/28/2024 7:51 AM EDT) us Historical Provider IMG US OP Final Res ult * TTE COMPREHENSIVE (10/09/2024 11:52 AM EDT) Body Surface Area 1.76 m2 Height 170 cm Weight 66 kg Systolic BP 130 mmHg Diastolic BP 80 mmHg Interventricular Septum Thickness 14 6 - 11 mm Left Ventricle Internal Diameter End Diastole 41 42 - 58 mm Left Ventricle Internal Diameter End Systole 24 <40 mm Left Ventricular Outflow Tract Diameter 15.0 mm LVOT VTI REST 200.0 mm Left Ventricular Outflow Tract Velocity 0.8 m/s Left Ventricular Outflow Tract Gradient at Rest 2 mmHg Left Ventricular Posterior Wall Thickness 13 6 - 11 mm Left Ventricle Ea Lateral Wave Speed 6.5 cm/s Left Ventricle Ea Septal Wave Speed 4.5 cm/s Ejection Fraction 63 50 - 75 Percent Aortic Valve Mean Gradient 24 mmHg Aortic Valve Time Velocity Integral 753.0 mm Aortic Valve Peak Velocity 3.3 m/s Aortic Valve Peak Gradient 43 mmHg Aortic Sinus Diameter 29 <40 mm Ascending Aorta Diameter 34 <36 mm Inferior Vena Cava Diameter 11 <21 mm Mitral Valve Area Pressure Half Time Eq 2,740.0 mm/s2 Mitral Valve Deceleration Time 273 ms MV stenosis pressure 1/2 time 80 ms Left Ventricle A Wave Speed 99.0 cm/s Left Ventricle E Wave Speed 74.7 cm/s Mitral Valve Mean Gradient 2 mmHg Mitral Valve Peak Gradient 4 mmHg Mitral Valve Area Continuity Equation 1.10 cm2 Pulmonary Artery End Diastolic Velocity 1.2 m/s Pulmonary Valve Peak Velocity 1.1 m/s Pulmonary Valve Peak Gradient 5 mmHg Right Ventricle Basal Diameter 32 25 - 41 mm Tricuspid Valve Peak Velocity 1.6 m/s Raw LV EF% 66 % MV E/E' Tissue Velocity Lateral 11.49 Relative Wall Thickness 0.63 0.22 - 0.42 Left Ventricle indexed to BSA 116.4 g/m2 MV E/A ratio 0.8 MV E/e' septal 16.60 Left Ventricle E/e' Average 14.0 Aortic Valve Prosthetic Peak Gradient 43 mmHg Aortic Valve Prosthetic Mean Gradient 24 mmHg Aortic Valve Sinus Index by BSA 16 mm/m2 Aorta Sinus Index by Height 1.71 cm/m Aorta Sinus CSA index by Height 3.88 cm2/m Ascending Aorta Index 19 mm/m2 Asc Aorta CSA Index by Height 5.34 cm2/m Mitral Valve Prosthetic Peak Gradient 4 mmHg Mitral Valve Prosthetic Mean Gradient 2 mmHg MV valve area p 1/2 method 2.8 cm2 Mitral Valve Area DT Method 23.2 cm2 Right Ventricle to Right Atrium Pressure Gradient 10 mmHg Right Ventricle Peak Systolic Pressure (Assuming RAP 10) 20 mmHg MGB CV ECHO TV RVSP (ASSUMING RAP OF 5) 15 mmHg RVSP (Exclusive of RAP) 10 mmHg Pulmonic Valve Prosthetic Peak Gradient 5 mmHg MGB CV AV DIMENSIONLESS INDEX (PEAK) - STRESS ECHO DOBUT - REST 0.24 Ascending Aorta Index 19 mm Aortic Sinus Index 16 mm Ascending Aorta Diameter 19 mm Aortic Valve Sinus Index 1 16 20 - 32 mm AO ASC DIAM BSA INDEX 19.32 Echo E/Ea 16.60 Left Atrial Volume Index 31 16 - 34 mL/m2 Right Ventricle TAPSE 17 >=17 mm Right Ventricle Pulse Doppler S Wave 10.9 >=9.5 cm/s Left Atrial Volume 54 mL Left Atrial Volume Index by Height 32 mL/m Right Atrium Area 14 cm2 Right Atrium Area index 8 cm2/m2 Right Ventricle Peak Systolic Pressure 13 mmHg Right Atrium Pressure Estimated 3 mmHg Pulmonary Artery End Diastolic Pressure 9 mmHg Anatomical Region Laterality Modality Heart Ultrasound Narrative 10/09/2024 1:03 PM EDT Images from the original result were not included. Mild to moderate LVH with dynamic LV systolic function EF 65 to 70%. Normal PA pressure estimation. Normal RV size and function. Normal diastolic function for age. There is a TAVR in the aortic position peak velocity 3.3 m/s mean gradient 24 mmHg. Appears to function normally and is well-seated. Compared to prior study from December 2023, no change. Left Ventricle The left ventricle is normal in size. There is moderate concentric hypertrophy. There is normal left ventricular systolic function. The LV ejection fraction is 63% (calculated via biplane measurement). LV diastolic function appears within normal limits for age. The E/A ratio is 0.8. The e' septal wave velocity is 4.5 cm/s. The e' lateral wave velocity is 6.5 cm/s. The average E/e' ratio is 14.0. Right Ventricle The right ventricle is normal in size. There is normal right ventricular systolic function. TAPSE is 17 mm. RV S' wave is 10.9 cm/s. Left Atrium The left atrium is normal in size. The left atrial volume is 54 mL. The left atrial volume index by BSA is 31 mL/m2. There are normal flow patterns in the pulmonary vein. Right Atrium The right atrium is normal in size. The IVC is normal in size with normal inspiratory collapse. Mitral Valve There is mitral valve thickening. There is mitral annular calcification. There is no mitral stenosis. There is trace to mild mitral regurgitation. Tricuspid Valve The tricuspid valve appears normal. There is no tricuspid stenosis. There is trace to mild tricuspid regurgitation. The RV systolic pressure was calculated at 13 mmHg (using TR peak velocity of 1.6 m/s and assuming an RA pressure of 3 mmHg); this may be an underestimate due to incomplete TR Doppler envelope. Aortic Valve There is a 23mm Commander Ultra stent mounted bioprosthesis (TAVR) (per prior echocardiogram report), which is well-seated. The aortic valve peak velocity is 3.3 m/s. The peak and mean aortic valve prosthetic gradients are 43 mmHg and 24 mmHg respectively. There is no aortic regurgitation. The visualized portions of the thoracic aorta appear normal in size. The aortic sinus diameter is 29 mm. The ascending aortic diameter is 34 mm. Pulmonic Valve The pulmonic valve appears normal. There is no pulmonic stenosis. There is trace to mild pulmonic regurgitation. Pericardium There is no pericardial effusion. General Findings The image quality was adequate. Technique(s) used in the evaluation: Color flow Doppler and Spectral Doppler. Consent was obtained from: patient The predominant rhythm during the study was sinus. Patient tolerated the procedure well. No complications observed during the procedure. Comparison Findings Compared to prior TTE on 01/03/2024, IAS/IVS The interatrial septum appears normal. There is no evidence of patent foramen ovale (PFO) by Doppler. us Felicitas Pastrana MD CV ECHO ORDERABLES Final Resul t * Outside Imaging Report Only (08/31/2024 1:35 PM EDT) Historical Provider IMG XR CHEST Final Res ult * Outside Lab (08/21/2024 2:57 PM EDT) Historical Provider LAB BLOOD ORDERABLES Lavonne l Result * Lipid panel (04/11/2024 8:30 AM EST) HDL 46 mg/dL [facility] Comment: Interpretation <40 mg/dL: Low HDL cholesterol (major risk factor for CHD) Greater than or equal to 60 mg/dL: High HDL cholesterol ( negative risk factor for CHD) HDL - cholesterol is affected by a number of factors, e.g. smoking, excerise, hormones, sex and age. CHOLESTEROL 185 0 - 240 mg/dL [facility] TRIGLYCERIDES 71 30 - 160 mg/dL [facility] LDL 125 50 - 129 mg/dL [facility] Comment: LDL levels in terms of risk for coronary heart disease: <100 mg/dL: Optimal 100-129 mg/dL: Near or above optimal 130-159 mg/dL: Borderline high 160-189 mg/dL: High >190 mg/dL: Very High CARDIAC RISK RATIO 4.0 3.4 - 5.0 [facility] Blood 04/11/2024 8:30 AM EST 04/11/2024 8:34 AM EST Rickie Turner MD LAB BLOOD ORDERABLES Final Result [address] [address] * COLONOSCOPY FOR RESULT ENTRY ONLY (03/25/2015) Colonoscopy The entire examined colon is normal on direct and retroflexion views. - The examined portion of the ileum was normal. - No specimens collected. Comment:5 year recall (perso nal history of polyps) Historical Provider HEALTH MAINTENANCE Final Result from Last 3 Months or Most Recently Relevant to Health Maintenance Insurance MEDICARE PART A & B [facility] MEDICARE SUPPLEMENT MEDICARE PART A & B MEDICARE SUPPLEMENT MEDICARE PART A & B [facility] MEDICARE SUPPLEMENT [facility] Address: [facility] [id number] [place] [address] [place] [address] MEDICARE PART A & B [facility] MEDICARE SUPPLEMENT [facility] Address: [facility] [id number] [place] [phone] MEDICARE PART A & B [id number] [place] [address] MEDICARE SUPPLEMENT MEDICARE PART A & B [facility] MEDICARE SUPPLEMENT MEDICARE PART A & B MEDICARE SUPPLEMENT [facility] Address: [facility] [id number] [place] [address] MEDICARE PART A & B MEDICARE SUPPLEMENT [facility] [place] Address: [facility] [id number] [place] [address] MEDICARE PART A & B [facility] MEDICARE SUPPLEMENT Advance Directives For more information, please contact: [phone] (9AM - 5PM [facility], Saturday-Saturday) * Full Code (Latest Code Status on File) Date Activated Date Inactivated Comments 11/14/2023 11:24 AM Question Answer Comments Code Status Confirmed With: Patient * Full Code (Presumed) Date Activated Date Inactivated Comments 11/13/2018 10:02 AM 11/13/2018 3:29 PM * Full Code (Presumed) Date Activated Date Inactivated Comments 11/13/2018 8:11 AM 11/13/2018 10:02 AM * Full Code (Presumed) Date Activated Date Inactivated Comments 07/27/2018 6:12 PM 07/28/2018 6:40 PM Care Teams Laborer Relationship Specialty Start Date End Date Gerson Mitchell MD [address] [place] [address] PCP - General Internal Medicine 02/26/17 Danay Roman NP [address] [place] [id number] Historical LMR Provider 02/02/17 Abi Mcfarland, YAMILA [address] [place] [address] Historical LMR Provider 02/02/17 Gerson Mitchell MD [address] [place] [address] Insurance Assigned Provider 07/20/23 Rickie Turner MD [address] [place] [address], [address] [address] Cardiology 09/23/23 Additional Source Comments The information contained in this document represents components of the legal health record. It is not the complete legal health record.Located Within [facility]
== END 2024-11-12 11:09 | disposition home or self-care (01) ==
LOC: HO.HKA 10:38
PROVIDERS: PCP Internal Medicine; Visit Provider Internal Medicine Hypertension Specialist
DX: I12.9 Hypertensive chronic kidney disease with stage 1 through stage 4 chronic kidney disease, or unspecified chronic kidney disease (principal); N18.9 Chronic kidney disease, unspecified; Z95.2 Presence of prosthetic heart valve; M10.9 Gout, unspecified; E87.5 Hyperkalemia
CPT/HCPCS: 99214

== ENCOUNTER → 2024-11-12 10:38 | Outpatient (BNVA) | payer MEDICARE, SELFPAY | PROVIDERS: PCP Internal Medicine; Visit Provider Internal Medicine Hypertension Specialist | DX: I12.9 Hypertensive chronic kidney disease with stage 1 through stage 4 chronic kidney disease, or unspecified chronic kidney disease (principal); N18.9 Chronic kidney disease, unspecified; Z95.2 Presence of prosthetic heart valve; M10.9 Gout, unspecified; E87.5 Hyperkalemia | CPT/HCPCS: 99212 ==

== ENCOUNTER 2024-11-20 08:46 | Outpatient (AMB) | payer MEDICARE, SELFPAY ==
--- NOTE | 2024-11-20 08:46 | A.OFFVIS_ITS ---
Intake Visit Reasons: Renal Cysts Intake Note: New Patient is present for RENAL CYST Urology Rx: ALLOPURINOL, TAMSULOSIN Blood Thinners:ASPIRIN Imaging completed: US 10/26/24 Automatic Typewriter Inspector Required: No Accompanied by: Self / Same As Patient Allergies No Known Allergies Allergy (Verified 11/20/24 08:55) HPI Comments Details: Ne is a pleasant male. He is a patient of . He is seen for the following urologic conditions - lower urinary tract symptoms - complex renal cyst Complex renal cyst Detected on ultrasound renal performed for Nephrology Simple cyst left side 7 cm Question complex renal cyst on left side Baseline CKD Plan renal MRI for further characterization Lower urinary tract symptoms Elevated PSA he reports as 11 Was looking at robotic simple prostatectomy Discussed pros and cons with high rates of incontinence given his age Would recommend laser enucleation procedure of prostate We will obtain bladder ultrasound for prostate sizing PFSH Surgical History Heart valve replaced (~08/2023) Family History Father Hypertension Kidney disease Review of Systems Const Denies chills and Denies fever(s) Card Reports no additional complaints and Denies syncope Resp Denies cough GI Denies abdominal pain and Denies heartburn Reports as per HPI and Denies change in libido Neuro Denies syncope Psych Denies change in libido Endo Denies change in libido Physical Exam Const General: cooperative, healthy appearing, comfortable and no acute distress Orientation/consciousness: patient oriented x3 HEENT Face and sinus: Yes normal facial exam Mouth: moist mucous membranes Neck Neck: Yes normal visual inspection, Yes full ROM and Yes trachea midline Chest Chest palpation & inspection: normal inspection of the chest Resp Effort & Inspection: normal respiratory effort, able to speak in complete sentences and no respiratory distress GI Inspection: Yes normal to inspection Back/Spine/Pelvis Cervical Spine: normal cervical lordosis Thoracic/Lumbar Spine: thoracic and lumbar spine normal to inspection Skin General skin exam: no rashes or lesions noted Neuro General: patient oriented x3, gait normal, tone normal and moves all extremities Extrem General: Yes normal to inspection and Yes capillary refill normal Results AMB Urinalysis, Automated UA Leukoctes 0 Sunita/uL Last Edit by Margie Del Toro MA on 11/20/24 16:35 UA Nitrite Negative Last Edit by Margie Del Toro, MA on 11/20/24 16:35 UA Urobilinogen 0.2 mg/dL Last Edit by Margie Del Toro, MA on 11/20/24 16:35 UA Protein 30 mg/dL Last Edit by Margie Del Toro, MA on 11/20/24 16:35 UA pH 6.0 Last Edit by Margie Del Toro, MA on 11/20/24 16:35 UA Blood 0 Ortega/uL Last Edit by Margie Del Toro, MA on 11/20/24 16:35 UA Specific [place] 1.015 Last Edit by Margie Del Toro, MA on 11/20/24 16:35 UA Ketone Negative Last Edit by Margie Del Toro, MA on 11/20/24 16:35 UA Bilirubin 0 mg/dL Last Edit by Margie Del Toro, MA on 11/20/24 16:35 UA Glucose 0 mg/dL Last Edit by Margie Del Toro, [place] on 11/20/24 16:35 Assessment & Plan Assessment & Plan (1) Lower urinary tract symptoms due to benign prostatic hyperplasia: Code(s): N40.1 - Benign prostatic hyperplasia with lower urinary tract symptoms Category: Medical (2) Complex renal cyst: Code(s): N28.1 - Cyst of kidney, acquired Category: Medical Plan Planned imaging Orders: Orders US bladder Today N40.1 - Benign prostatic hyperplasia with lower urinary tract symptoms, R39.12 - Poor urinary stream AMB Urinalysis Automated Today N28.1 - Cyst of kidney, acquired, N40.1 - Benign prostatic hyperplasia with lower urinary tract symptoms MR abdomen wo con Today N28.1 - Cyst of kidney, acquired Patient Instructions: This note is constructed using voice recognition software. While every effort has been made to ensure accuracy regional project manager errors may have been included. Imaging studies, laboratory and physical exam results were discussed and reviewed in detail. No major barriers to patient understanding were identified. An opportunity to ask questions regarding the treatment plan was provided. All questions were answered. The patient expressed understanding and agreement with the above treatment plan. The patient is aware they should contact our office by phone for worsening of their current condition or the appearance of new urologic symptoms. Compliance is encouraged with any medications and followup testing that is ordered. It is a privilege to participate in the urologic care of your patient. If you have any questions or concerns regarding treatment for the above conditions, or other urologic issues, please do not hesitate to contact me. The office telephone contact is [phone]. Sincerely, Dr Jose Amador MD, [facility] - Urology Compassionate Specialist Care for the Genitourinary System Coding Diagnoses Lower urinary tract symptoms due to benign prostatic hyperplasia N40.1 Complex renal cyst N28.1
--- OUTSIDE RECORDS SUMMARY | 2024-11-20 08:59 | XMS_ITS | Clinical Summary ---
Author Organization [facility], Address [address] [place] [address] Phone Care Team Providers Care Tool Marker Name Role Phone Gerson Mitchell MD Primary Care Provider [phone] Encounters Date Type Department Care Team Description 09/02/2024 Documentation Only [facility] [address] [place] [phone] Rosemarie Leonardo MA 09/02/2024 Telephone [facility] [address] [place] [phone] Rosemarie Leonardo MA from Last 3 Months [...] complete this [place] [id number] Medicare [facility] Care Teams Tool Marker Relationship Specialty Start Date End Date Gerson Mitchell MD [address] [place] [address] [address] [place] [address] PCP - General Internal Medicine 09/02/24
== END 2024-11-20 09:34 | disposition home or self-care (01) ==
LOC: HO.HUSH 08:46
PROVIDERS: PCP Internal Medicine; Visit Provider Urology
DX: N28.1 Cyst of kidney, acquired (principal); N40.1 Benign prostatic hyperplasia with lower urinary tract symptoms

== ENCOUNTER → 2024-11-20 08:46 | Outpatient (BNVA) | payer MEDICARE, SELFPAY | PROVIDERS: PCP Internal Medicine; Visit Provider Urology | DX: N40.1 Benign prostatic hyperplasia with lower urinary tract symptoms (principal); R39.12 Poor urinary stream; N28.1 Cyst of kidney, acquired | CPT/HCPCS: 81003; 99202 ==

== ENCOUNTER → 2024-12-02 07:34 | Outpatient (BNV) | payer MEDICARE, SELFPAY | PROVIDERS: PCP Internal Medicine; Visit Provider Radiology Diagnostic Radiology | DX: N28.1 Cyst of kidney, acquired (principal) | CPT/HCPCS: 74181 ==

== ENCOUNTER 2024-12-02 07:44 | Outpatient (REF) | payer MEDICARE, SELFPAY ==
--- NOTE | ~2024-12-02 | MR_ITS ---
EXAMINATION: MR ABDOMEN WITHOUT CONTRAST CLINICAL INFORMATION: Cyst on kidney. COMPARISON: Correlated to renal ultrasound dated October 26, 2024 reported having is 7 cm exophytic cystic lesion, left kidney and a 2.5 mm calculus right kidney. TECHNIQUE: MR abdomen is performed without gadolinium contrast. FINDINGS: LUNG BASES: No signal abnormality. LIVER, GALLBLADDER, AND BILIARY TREE: Liver measures 17 cm. No gross focal signal mass. Flow-void signal within the main vessels is normal. Gallbladder is absent. The common bile duct measures 4 mm. No intraluminal signal abnormality. PANCREAS: No peripancreatic fluid collection. Main pancreatic duct measures 2 mm. No gross focal signal abnormality mass. SPLEEN: 10 cm. No mass. ADRENAL GLANDS: No nodular lesions. Soft tissue fullness both adrenal glands. KIDNEYS AND URETERS: Right kidney: Small. No hydronephrosis. Normal renal cortical thickness. No gross solid or cystic lesions. Left kidney: There is a 7.7 x 5.5 x 6.8 cm thin septated exophytic fluid signal characteristic lesion in the midportion to lower pole. No restricted diffusion signal. There is a 2.0 cm exophytic predominantly fluid signal characteristic lesion in the posterior lateral lower pole with isointense T2 signal in the dependent portion and no gross restricted diffusion. No hydronephrosis. GASTROINTESTINAL TRACT: Small hiatal hernia. No intestinal obstruction pattern. ABDOMINAL WALL: Small fat-containing umbilical hernia. LYMPH NODES: No mesenteric or retroperitoneal lymphadenopathy. VASCULAR: No aneurysm, abdominal aorta. Probable plaque in the posterior aspect of the infrarenal abdominal aorta reducing in approximately 60% the intraluminal diameter. OSSEOUS STRUCTURES: Multilevel thoracolumbar spondylosis without gross acute fracture or listhesis. No bone marrow signal lesion. The heart is enlarged. MR/MR abdomen wo con IMPRESSION: 2.0 cm exophytic complex cystic lesion, lower pole left kidney. 7.7 cm thin septated cystic lesion, left kidney. No hydronephrosis. Recommend follow-up for stability since underlying neoplasm cannot be excluded. Electronically signed by: Jayy Castañeda MD 12/02/2024 08:36 AM EDT
--- OUTSIDE RECORDS SUMMARY | 2024-12-02 07:48 | XMS_ITS | Clinical Summary ---
Author Organization [facility], Address [address] [place] [address] Phone Care Team Providers Care Qa Software Test Engineer Name Role Phone Gerson Mitchell MD Primary Care Provider [phone] Encounters Date Type Department Care Team Description 09/02/2024 Documentation Only [facility] [address] [place] [phone] Rosemarie Leonardo MA 09/02/2024 Telephone [facility] [address] [place] [phone] Rosemarie Leonardo MA from Last 3 Months [...] complete this [place] [id number] Medicare [facility] Care Teams Qa Software Test Engineer Relationship Specialty Start Date End Date Gerson Mitchell MD [address] [place] [address] [address] [place] [address] PCP - General Internal Medicine 09/02/24
--- OUTSIDE RECORDS SUMMARY | 2024-12-02 07:48 | XMS_ITS | Clinical Summary ---
Author Organization [facility] Address [address] [place] [address] Phone Care Team Providers Care Welding Machine Operator Thermit Name Role Phone Danay Roman MAINSPRING TORQUE TESTER Unavailable [phone] Abi Mcfarland WRAPAROUND FACILITATOR Unavailable [phone] Gerson Mitchell MD Primary Care Provider [phone] Gerson Mitchell MD Unavailable [phone] Rickie Turner MD Unavailable [phone] Allergies No known active allergies Medications GRAPE [...] dental work). 12 capsule 11/15/19 24 Active ezetimibe (ZETIA) 10 mg tablet Take 1 tablet (10 mg total) by mouth daily. 90 tablet 5 01/09/20 24 Active tamsulosin (FLOMAX) 0.4 mg CapIndications:B PH associated with nocturia Take 2 capsules (0.8 mg total) by mouth nightly at bedtime. 180 capsule 2 07/28/19 25 Active amLODIPine (NORVASC) 10 MG tabletIndication s:Essential hypertension Take 1 tablet (10 mg total) by mouth daily. 90 tablet 3 11/05/19 25 025 Active carvedilol (COREG) 12.5 MG tablet Take 1 tablet (12.5 mg total) by mouth 2 (two) times a day with meals. 11/14/19 25 025 Active hydrALAZINE (APRESOLINE) 25 MG tablet Take 35 mg by mouth 3 (three) times a day. Active carvedilol (COREG) 12.5 MG tablet Take 1 tablet (12.5 mg total) by mouth 2 (two) times a day with meals. 180 tablet 5 01/09/20 24 025 Discontinued irbesartan (AVAPRO) 300 MG tabletIndication s:Essential hypertension Take 1 tablet (300 mg total) by mouth daily. 90 tablet 1 07/09/19 25 025 Discontinued(No longer taking) amLODIPine (NORVASC) 10 MG tabletIndication s:Essential hypertension Take 1 tablet (10 mg total) by mouth daily. 90 tablet 3 09/18/19 25 025 Discontinued(Re order) hydrALAZINE (APRESOLINE) 10 MG tablet Take 10 mg by mouth 3 (three) times a day. 09/16/19 25 025 Discontinued(Re order) hydrALAZINE (APRESOLINE) 25 MG tablet Take 1 tablet (25 mg total) by mouth 3 (three) times a day. 90 tablet 5 11/05/19 25 025 Discontinued(No longer taking) Hospital, Clinic, or Other Facility Administered Medication Ordered Dose Route Frequency Start Date End Date Status sodium chloride (NS) 0.9 % syringe flush 3 mL 3 mL IV As needed 09/16/2023 11/17/2024 Discontinued Active Problems Problem Noted Date Diagnosed Date Presence of prosthetic heart valve 11/14/2023 Adverse effect of anesthetic 11/13/2023 Overview (11/13/2023): difficulty voiding after surgery Aortic valve disease 11/13/2023 Carotid stenosis 11/13/2023 Overview (11/13/2023): s/p CEA Assessment & Plan (11/16/2024 9:52 AM EDT): prior carotid endarterectomy. He should be on aspirin long-term and we should optimize his cardiovascular risk factors. HTN (hypertension) 11/13/2023 Wears glasses 11/13/2023 Chronic [...] aortic valve stenosis 09/16/2023 Assessment & Plan (11/16/2024 9:50 AM EDT): TAVR with a 23 mm [...] actually still is in cardiac rehab has 2 more visits and he is doing well with exercise. Will continue on aspirin 81 mg daily. Assessment & Plan (10/27/2024 8:50 AM EDT): [...] urgency. Elevated PSA. Will place referral to [facility] urology for further evaluation; patient would be interested in PAE as treatment option for his BPH. Assessment & Plan (08/28/2017 2:19 PM EDT): Stable on Saw Rule. F/u for any worsening urinary frequency or urgency. Pt verbalizes understanding and in agreement with plan. Hyperlipidemia 08/28/2017 Assessment & Plan (11/16/2024 9:49 AM EDT): Patient previously intolerant to statins. He has been taking Zetia 10 mg daily most recent LDL 125. Patient would like to get an updated lipid panel I have ordered this. Have reminded patient to get updated lipid panel before he Dr. Medrano. He can discuss PCSK9 inhibitor if needed with at his next follow-up depending on what his updated LDL shows. Assessment & Plan (10/27/2024 8:51 AM EDT): [...] needed. Essential hypertension 07/02/2017 Assessment & Plan (11/16/2024 9:53 AM EDT): Blood pressure today 170/94. He has been routinely checking his blood pressure at home and they are running around 160/90. Follows up closely with nephrology. Nephrology note titrate dose of hydralazine for blood pressure control. He has been on his hydralazine 25 mg 3 times daily over the past month and pressure readings are still 160/90. At this time I am going to have the patient take 35 mg hydralazine 3 times daily. Patient educated on HTN pathophysiology, htn medication, importance of low salt DASH heart healthy diet, exercise and home B/P monitoring. Will continue on amlodipine 10 mg daily and carvedilol 12.5 mg twice daily. Assessment & Plan (10/27/2024 8:49 AM EDT): [...] Encounters Date Type Department Care Team Description 11/19/2024 Orders Only [facility] [address] [place] [address] Uriel Perkins MD, PhD 11/18/2024 Plan of Care Documentation [facility] [address] [place] [address] 11/18/2024 Documentation [facility] [address] [place] [address] Zenia Hughes RN CR Discharge 11/13/2024 4:00 PM EDT Office Visit [facility] [address], [address] [place] [address] Esperanza Montoya DNP Essential hypertension (Primary Dx); Nonrheumatic aortic valve stenosis; Pure hypercholesterolem ia; Stenosis of carotid artery, unspecified laterality 11/07/2024 10:25 AM EDT - 11/07/2024 11:59 PM EDT Hospital Encounter [facility] [address] [place] [address] Gerson Mitchell MD Discharge Disposition: Home or Self Care 11/06/2024 Orders Only [facility] INTER[facility] RAD [address] [place] [address] Edgar Valladares MD Benign prostatic hyperplasia with lower urinary tract symptoms, symptom details unspecified (Primary Dx) 11/05/2024 Telephone [facility] Urology [address] [place] [address] Brittaney Hassan 11/04/2024 10:45 AM EDT Office Visit [facility] Cardiopulmonary Rehabilitation [address] [place] [address] Rickie Turner MD S/P TAVR (transcatheter aortic valve replacement) (Primary Dx) 11/04/2024 Plan of Care Documentation [facility] Cardiopulmonary Rehabilitation [address] [place] [address] 11/04/2024 Orders Only [facility] [address], [address] [place] [address] Rickie Turner MD Essential hypertension 11/04/2024 Orders Only [facility] Medicine Virtual Department [address] [place] [address] Rickie Turner MD 10/28/2024 Orders Only [facility] Internal Medicine [address] [place] [address] Venus Perez MD 10/27/2024 8:30 AM EDT Office Visit [facility] [address], [address] [place] [address] Lindsay Esperanza Allyson, NANCY Essential hypertension (Primary Dx); Pure hypercholesterolem ia; Benign essential hypertension; Nonrheumatic aortic valve stenosis 10/14/2024 9:15 AM EDT Telemedicine - audio only [facility] [address] [place] [address] Isabela Marlow PA-C DiStefano, Jessica, PA-C S/P TAVR (transcatheter aortic valve replacement) (Primary Dx) 10/09/2024 11:14 AM EDT - 10/09/2024 11:59 PM EDT Hospital Encounter [facility] Echo Lab [address] [place] [address] Felicitas Pastrana MD Discharge Disposition: Home or Self Care 10/07/2024 10:45 AM EDT Office Visit [facility] Cardiopulmonary Rehabilitation [address] [place] [address] Rickie Turner MD S/P TAVR (transcatheter aortic valve replacement) (Primary Dx) 10/07/2024 Plan of Care Documentation [facility] Cardiopulmonary Rehabilitation [address] [place] [address] 09/25/2024 10:45 AM EDT Office Visit [facility] Cardiopulmonary Rehabilitation [address] [place] [address] Rickie Turner MD S/P TAVR (transcatheter aortic valve replacement) (Primary Dx) 09/23/2024 10:45 AM EDT Office Visit [facility] Cardiopulmonary Rehabilitation [address] [place] [address] Rickie Turner MD S/P TAVR (transcatheter aortic valve replacement) (Primary Dx) 09/21/2024 10:45 AM EDT Office Visit [facility] Cardiopulmonary Rehabilitation [address] [place] [address] Rickie Turner MD S/P TAVR (transcatheter aortic valve replacement) (Primary Dx) 09/14/2024 10:45 AM EDT Office Visit [facility] Cardiopulmonary Rehabilitation [address] [place] [address] Rickie Turner MD S/P TAVR (transcatheter aortic valve replacement) (Primary Dx) 09/11/2024 10:45 AM EDT Office Visit [facility] Cardiopulmonary Rehabilitation [address] [place] [address] Rickie Turner MD S/P TAVR (transcatheter aortic valve replacement) (Primary Dx) 09/09/2024 Plan of Care Documentation [facility] Cardiopulmonary Rehabilitation [address] [place] [address] 09/09/2024 Documentation [facility] Cardiopulmonary Rehabilitation [address] [place] [address] Kori Ellington CR Assessment 11/15/2023 Procedure Pass [facility] Echo Lab [address] [place] [address] from Last 3 Months Immunizations Immunization Administration Dates Next Due COVID-19 (Pre-02/04) Ayi Laile Vaccine, mRNA, PF 07/23/2021,06/08/2020,05/18/2020 Hepatitis A, Unspecified 12/18/2011 INFLUENZA, SPLIT VIRUS, TRIVALENT PF 12/14/2015 INFLUENZA, SPLIT VIRUS, TRIV ALENT W/ PRESERVATIVE IM 12/18/2011 Influenza High-Dose Quadriva lent Preservative Free IM 12/26/2021 Influenza High-Dose Trivalen t Preservative Free IM 02/01/2015,02/04/2014,03/09/2013 Influenza Quadrivalent Adjuv anted Preservative Free IM 01/02/2023,01/12/2021 Influenza Quadrivalent Prese rvative Free IM 12/24/2019,02/12/2018,02/28/2017,12/22 Influenza Trivalent Adjuvant ed Preservative free IM 03/02/2024,01/08/2019,02/12/2018 Influenza, Unspecified Formulation 12/24/2019, Pneumococcal conjugate PCV13 [...] Sign Reading Time Taken Comments Blood Pressure 170/94 11/13/2024 3:52 PM EDT Pulse 81 11/13/2024 3:52 PM EDT Temperature 36.4 C (97.5 F) 07/24/2024 9:00 AM EDT Respiratory Rate 18 04/19/2024 1:33 PM EST Oxygen Saturation 98% 11/13/2024 3:52 PM EDT Inhaled Oxygen Concentration - - Weight 64.4 kg (142 lb) 11/13/2024 3:52 PM EDT Height 170.2 cm (5' 7.01 ) 11/13/2024 3:52 PM ED T Body Mass Index 22.24 11/13/2024 3:52 PM EDT Plan of Treatment Upcoming Encounters Date Type Department Care Team (Late st Contact Info) Description 07/26/2025 11:20 AM EDT Office Visit [facility] [address] [place] [address] [address]rd Floor, [address] [place] [address] Xavier Lee MD [address] [facility], [address] [place] [address] [email or web address] Health Maintenance Due Date Last Done Comments COLOGUARD 1988 FIT TEST 1988 FOBT 1988 SIGMOIDOSCOPY 1988 VIRTUAL COLONOSCOPY 1988 COLONOSCOPY 03/25/2020 03/25/2015 COLORECTAL CANCER SCREENING 03/25/2020 Adult Td,Tdap Booster 12/22/2020 12/22/2010 COVID-19 VACCINE ( season) 2024 12/16/2023, 01/10/2023, 01/02/2022, Additional history exists LIPID PANEL 04/11/2025 04/11/2024, 12/14, 04/02/2023, Additional history exists BLOOD PRESSURE 05/16/2025 11/13/2024 DEPRESSION SCREENING 11/17/2025 11/17/2024, 02/26/20 24 HEPATITIS A VACCINES Aged Out 12/18/2011 No [...] this topic Medical Devices Implanted Type Area Canal Boat Captain Device Identifier Shelf Expiration Date Model / Serial / Lot Commander Ultra 23mm S3 - [id number] Implanted:Qty : 1 on 11/14/2023 by Alex Cook MD at [facility] Prosthetic Valve Heart [employer] 05/09/2026 [id number] / [id number] / Bilateral Inguinal Mesh Procedures Procedure Name [...] stenosis, etiology of cardiac valve disease unspecified LIPID PANEL Routine 04/11/2024 8:30 AM EST Pure hypercholesterolemia HM COLONOSCOPY FOR RESULT ENTRY ONLY Routine 03/25/2015 from Last 3 Months or Most Recently Relevant to Health Maintenance Results * (ABNORMAL) Comprehensive metabolic panel (11/07/2024 10:33 AM EDT) SODIUM 143 133 - 146 mmol/L [facility] POTASSIUM 4.2 3.3 - 5.1 mmol/L [facility] CHLORIDE 107 96 - 108 mmol/L [facility] CO2 24 21 - 35 mmol/L [facility] BUN 30(H) 6 - 19 mg/dL [facility] CREATININE 2.60(H) 0.5 - 1.5 mg/dL [facility] GLUCOSE 142(H) 70 - 99 mg/dL [facility] ALBUMIN 4.0 3.9 - 4.8 g/dL [facility] TOTAL PROTEIN 7.1 6.5 - 8.0 g/dL [facility] CALCIUM 9.1 8.4 - 10.3 mg/dL [facility] ALKALINE PHOSPHATASE 53 39 - 117 U/L [facility] TOTAL BILIRUBIN 0.3 0.0 - 1.2 mg/dL [facility] AST 13 0 - 37 U/L [facility] ALT 8 0 - 40 U/L [facility] GLOBULIN 3.1 1 - 4.8 g/dL [facility] EGFR 24(L) >59 mL/min/1.7 3m2 [facility] Comment:Estimated glomerular filtration rate calculated using the CKD-EPI refit equation. ANION GAP 16 10 - 20 mmol/L [facility] Blood 11/07/2024 10:3 3 AM EDT 11/07/2024 10:36 AM EDT Gerson Mitchell MD LAB BLOOD ORDERABLES Final R esult Performing Organization Address City/[facility] Co de Phone Number [address] [address] * (ABNORMAL) PSA diagnostic (monitoring) (11/07/2024 10:33 AM EDT) PSA 11.70(H) 0 - 4.00 ng/mL [facility] Comment: Test Methodology Dawit e801 Patient results determined by assays using different manufacturers or methods may not be comparable. Blood 11/07/2024 10:3 3 AM EDT 11/07/2024 10:36 AM EDT us Gerson Mitchell MD LAB BLOOD ORDERABLES Final R esult Performing Organization Address City/[facility]/ZIP Co de Phone Number [address] [address] * (ABNORMAL) CBC (11/07/2024 10:33 AM EDT) WBC 8.08 4.00 - 11.00 K/uL [facility] RBC 4.40(L) 4.50 - 5.90 M/uL [facility] HGB 13.5 13.5 - 17.5 g/dL [facility] HCT 41.6 41.0 - 53.0 % [facility] PLT 144(L) 150 - 450 K/uL [facility] MCV 94.5 80.0 - 100.0 fL [facility] MCH 30.7 27.0 - 31.0 pg [facility] MCHC 32.5 32.0 - 36.0 g/dL [facility] RDW 13.5 11.5 - 14.5 % [facility] MPV 10.5 8.4 - 12.0 fL [facility] NRBC 0.00 0.00 /100 WBCs [facility] ABSOLUTE NRBC 0.00 0.00 K/uL [facility] Blood 11/07/2024 10:3 3 AM EDT 11/07/2024 10:36 AM EDT us Gerson Mitchell MD LAB BLOOD ORDERABLES Final R esult Performing Organization Address City/State/[facility] Co de Phone Number [address] [address] * Outside [place] Imaging??Report Only (10/28/2024 7:51 AM EDT) us [facility] Final Res ult * TTE COMPREHENSIVE [...] CV ECHO ORDERABLES Final Resul t * Lipid panel (04/11/2024 8:30 AM EST) [facility] HDL 46 mg/dL [facility] Comment: Interpretation <40 mg/dL: Low HDL cholesterol (major risk factor for CHD) Greater than or equal to 60 mg/dL: High HDL cholesterol ( negative risk factor for CHD) HDL - cholesterol is affected by a number of factors, e.g. smoking, excerise, hormones, sex and age. CHOLESTEROL 185 0 - 240 mg/dL [facility] TRIGLYCERIDES 71 30 - 160 mg/dL [facility] LDL 125 50 - 129 mg/dL [facility] Comment: LDL levels in terms of risk for coronary heart disease: <100 mg/dL: Optimal 100-129 mg/dL: Near or above optimal 130-159 mg/dL: Borderline high 160-189 mg/dL: High >190 mg/dL: Very High CARDIAC RISK RATIO 4.0 3.4 - 5.0 C [facility] Blood 04/11/2024 8:30 AM EST 04/11/2024 8:34 AM EST us Rickie Turner MD LAB BLOOD ORDERABLES Final Result [address] [id number] * COLONOSCOPY FOR RESULT ENTRY ONLY (03/25/2015) Pathologist [facility] Colonoscopy The entire examined colon is normal on direct and retroflexion views. - The examined portion of the ileum was normal. - No specimens collected. Comment:5 year recall (perso nal history of polyps) us Historical Provider MD HEALTH MAINTENANCE Final Result from Last 3 Months or Most Recently Relevant to Health Maintenance Insurance MEDICARE PART A & B Member Subscriber Plan / Payer (Ef fective 2008-Present) Name:Ne Kwong Member ID:[id number] Relation to Subscriber:Self Name:Ne Kwong Subscriber ID:[id number] Payer ID:[id number] Group ID:Not on file Type:Medicare Address: [facility] [address] [address] [facility] MEDICARE SUPPLEMENT MEDICARE PART A & B [facility] MEDICARE SUPPLEMENT MEDICARE PART A & B MEDICARE SUPPLEMENT MEDICARE PART A & B Member Subscriber Plan / Payer ( fective 2008-) Name:Ne Kwong Member ID:[id number] Relation to Subscriber:Self Name:Ne Kwong Subscriber ID:[id number] Payer ID:[id number] Group ID:Not on file Type:Medicare Address: [employer] [address] [place] [address] MEDICARE PART A & B Member Subscriber Plan / Payer ( fective 2008-) Name:Ne Kwong Member ID:[id number] Relation to Subscriber:Self Name:Ne Kwong Subscriber ID:[id number] Payer ID:[id number] Group ID:Not on file Type:Medicare Address: [employer] [address] MEDICARE SUPPLEMENT MEDICARE PART A & B [facility] MEDICARE SUPPLEMENT MEDICARE PART A & B [facility] MEDICARE SUPPLEMENT MEDICARE PART A & B MEDICARE SUPPLEMENT MEDICARE PART A & B Member Subscriber Plan / Payer (Ef fective 2008-) Name:Ne Kwong Member ID:[id number] Relation to Subscriber:Self Name:Ne Kwong Subscriber ID:[id number] Payer ID:[id number] Group ID:Not on file Type:Medicare Address: [employer] [address] MEDICARE SUPPLEMENT Advance Directives For more information, please contact: [phone] (9AM - 5PM [facility], Saturday-Saturday) * Full Code (Latest Code Status [...] 6:12 PM 07/28/2018 6:40 PM Care Teams Welding Machine Operator Thermit Relationship Specialty Start Date End Date Gerson Mitchell MD [address] [place] [id number] [email or web address] PCP - General Internal Medicine 02/26/17 Danay Roman NP [address] [place] [phone] [email or web address] Historical LMR Provider 02/02/17 Abi Mcfarland, YAMILA [address] [place] [address] [email or web address] Historical LMR Provider 02/02/17 Gerson Mitchell MD [address] [place] [id number] [email or web address] Insurance Assigned Provider 07/20/23 Rickie Turner MD [address] [place] [id number] [email or web address] Cardiology 09/23/23 Additional Source Comments The information contained in this document represents components of the legal health record. It is not the complete legal health record.[facility]
== END 2024-12-02 07:45 | disposition home or self-care (01) ==
LOC: HO.MRI 07:44
PROVIDERS: PCP Internal Medicine; Visit Provider Urology
DX: N28.1 Cyst of kidney, acquired (principal)
CPT/HCPCS: 74181

== ENCOUNTER 2024-12-17 09:44 | Outpatient (REF) | payer MEDICARE, SELFPAY ==
--- NOTE | ~2024-12-17 | US_ITS ---
EXAMINATION: US PELVIS LIMITED (BLADDER) CLINICAL INFORMATION: Poor urinary stream. COMPARISON: None available. TECHNIQUE: Real-time imaging of the bladder. FINDINGS: BLADDER: Well-distended. There is mild diffuse wall thickening measuring up to 6 mm. Bilateral ureteral jets are not demonstrated. Prevoid bladder volume is 284 mL. Postvoid bladder volume is 39 mL. The median lobe of the prostate protrudes into the bladder base. Prostate volume is estimated at 131 mL. US/US bladder IMPRESSION: 1. Prostate enlargement. Median lobe protrudes into the bladder base. 2. Mild wall thickening of the urinary bladder. Nonvisualization of ureteral jets, nonspecific. Postvoid residual is 39 mL. Electronically signed by: Scout Henry MD 12/17/2024 10:52 AM EDT
--- OUTSIDE RECORDS SUMMARY | 2024-12-17 10:38 | XMS_ITS | Encounter Summary ---
Author Organization [facility] Address [address] [place] [address] Phone Care Team Providers Care Picker Packer Name Role Phone Gerson Mitchell MD Unavailable [phone] Gerson Mitchell MD Unavailable [phone] Danay Roman ENGINEER DESIGN AND CONSTRUCTION Unavailable [phone] Abi Mcfarland ACCOUNTS ADJUSTABLE CLERK Unavailable [phone] Rhett Willams MD Unavailable Unavailable Gerson Mitchell MD Primary Care Provider [phone] Greson Mitchell MD Unavailable [phone] Gerson Mitchell MD Unavailable [phone] Rickie Turner MD Unavailable [phone] Encounter Details Date Type Department Care Team (Late st Contact Info) Description 07/27/2018 Procedure Pass [facility], [address] [address] Social History Tobacco Use Types Packs/Day Years Used Date Smoking Tobacco: Never Smokeless Tobacco: Never Sex and Gender Information Value Date Recorded Sex Assigned at Male 05/15/2020 7:48 PM EST Legal Sex Male 10:10 PM EDT Gender Identity Male 05/15/2020 7:48 PM EST Sexual Orientation Straight 09/08/2023 7: 48 AM EDT documented as of this encounter Plan of Treatment Upcoming Encounters Date Type Department Care Team (Late st Contact Info) Description 07/26/2025 11:20 AM EDT Office Visit [facility] [address] [place] [address] 3rd Floor, [address] [place] [address] Xavier Lee MD [address] [facility], [address] [place] [address] [email or web address] documented as of this encounter Visit Diagnoses Not on filedocumented in this encounter Care Teams Picker Packer Relationship Specialty Start Date End Date Gerson Mitchell MD [address] [place] [address] [email or web address] PCP - General Internal Medicine 02/26/17 Gerson Mitchell MD [address] [place] [address] [email or web address] Insurance Assigned Provider 01/19/17 10/25/18 Gerson Mitchell MD [address] [place] [address] [email or web address] Historical LMR Provider 02/02/17 1 Danay Roman, ENGINEER DESIGN AND CONSTRUCTION [address] [place] [address] [email or web address] Historical LMR Provider 02/02/17 Abi Mcfarland, ACCOUNTS ADJUSTABLE CLERK [address] [place] [address] [email or web address] Historical LMR Provider 02/02/17 Rhett Willams MD Historical LMR Provider 02/02/17 10/09/20 Gerson Mitchell MD [address] [place] [address] [email or web address] Insurance Assigned Provider 07/22/19 04/23/20 Gerson Mitchell MD [address] [place] [address] [address] [place] [address] [email or web address] Insurance Assigned Provider 07/20/23 Rickie Turner MD [address] [place] [address], [address] [address] [email or web address] Cardiology 09/23/23 documented as of this encounter Additional Source Comments The information contained in this document represents components of the legal health record. It is not the complete legal health record.[facility]
--- OUTSIDE RECORDS SUMMARY | 2024-12-17 10:38 | XMS_ITS | Encounter Summary ---
Author Organization [facility] Address [address] [facility] [address] [place] [address] Phone Care Team Providers Care Pricing Associate Name Role Phone Danay Roman PHYSICIAN UNDERWRITER Unavailable [phone] Abi Mcfarland REJOGGER Unavailable [phone] Gerson Mitchell MD Primary Care Provider [phone] Gerson Mitchell MD Unavailable [phone] Rickie Turner MD Unavailable [phone] Encounter Details Date Type Department Care Team (Late st Contact Info) Description 02/27/2024 Procedure Pass [facility] [address] [place] [address] Social History Tobacco Use Types Packs/Day Years Used Date Smoking Tobacco: Never Smokeless Tobacco: Never Alcohol Use Standard Drinks/Week Comments Yes 1 [...] Description 07/26/2025 11:20 AM EDT Office Visit [facility] [address] [place] [address] 3rd [facility], [address] [place] [address] Xavier Lee MD [address] [place] [address] [email or web address] documented as of this encounter Visit Diagnoses Not on filedocumented in this encounter Additional Health Concerns Assessment Noted Time PHQ-9 Depression Total Score: 4 02/26/20 24 10:35 AM EST PHQ-2 Depression Total Score: 0 03/22/20 21 8:28 AM EST documented as of this encounter Care Teams Pricing Associate Relationship Specialty Start Date End Date Gerson Mitchell MD [address] [place] [address] [place] [address] [email or web address] PCP - General Internal Medicine 02/26/17 Danay Roman NP [address] [place] [address] [place] [address] [email or web address] Historical LMR Provider 02/02/17 Abi Mcfarland CNP [address] [place] [address] [place] [address] [email or web address] Historical LMR Provider 02/02/17 Gerson Mitchell MD [address] [place] [address] [address] [place] [address] [email or web address] Insurance Assigned Provider 07/20/23 Rickie Turner MD [address] [place] [address] [email or web address] Cardiology 09/23/23 documented as of this encounter Additional Source Comments The information contained in this document represents components of the legal health record. It is not the complete legal health record.[facility]
--- OUTSIDE RECORDS SUMMARY | 2024-12-17 10:38 | XMS_ITS | Encounter Summary ---
Author Organization [facility] Address [address] [place] [address] Phone Care Team Providers Care Kraft Digester Operator Name Role Phone Danay Roman CROP RANCH HAND Unavailable [phone] Abi Mcfarland REGENERATOR OPERATOR Unavailable [phone] Gerson Mitchell MD Primary Care Provider [phone] Gerson Mitchell MD Unavailable [phone] Rickie Turner MD Unavailable [phone] Reason for Referral * MRI/CAT Scan - Closed Specialty Diagnoses / Procedures Referred By Sher t Referred To Contact Radiology Procedures Outside [facility] Abdomen [facility] [address] [place] [address] Phone: tel: fax: Referral ID Status Reason Start Date Expiration Date Visits Re quested Visits Authorized [id number] Closed 12/03/2024 1 1 Encounter Details Date Type Department Care Team (Late st Contact Info) Description 12/03/2024 Orders Only [facility] Internal Medicine [address] [place] [address] Venus Perez MD [address] [place] [address] Social History Tobacco Use Types Packs/Day Years [...] Description 07/26/2025 11:20 AM EDT Office Visit [facility] [address] [place] [address] 3rd Floor, [address] [place] [address] Xavier Lee MD [address] [place] [address] documented as of this encounter Procedures Procedure Name Priority Date/Time Associated Diagnosis Comments OUTSIDE MR ABDOMEN REPORT ONLY Routine 12/03/2024 11:20 AM EDT documented in this encounter Results * Outside MR Abdomen Report Only (12/03/2024 11:20 AM EDT) us Historical Provider MD COLINDRES MR ABDOMEN Final Res ult documented in this encounter Visit Diagnoses Not on filedocumented in this encounter Additional Health Concerns Assessment Noted Time PHQ-9 Depression Total Score: 4 02/26/20 24 10:35 AM EST PHQ-2 Depression Total Score: 0 03/22/20 21 8:28 AM EST documented as of this encounter Care Teams Kraft Digester Operator Relationship Specialty Start Date End Date Gerson Mitchell MD [address] [place] [address] PCP - General Internal Medicine 02/26/17 Danay Roman NP [address] [place] [address] Historical LMR Provider 02/02/17 Abi Mcfarland CNP [address] [place] [address] Historical LMR Provider 02/02/17 Gerson Mitchell MD [address] [place] [address] Insurance Assigned Provider 07/20/23 Rickie Turner MD [address] [place] [address], [address] [address] Cardiology 09/23/23 documented as of this encounter Additional Source Comments The information contained in this document represents components of the legal health record. It is not the complete legal health record.[facility]
--- OUTSIDE RECORDS SUMMARY | 2024-12-17 10:38 | XMS_ITS | Encounter Summary ---
Author Organization [facility] Address [address] [facility] [address] [place] [address] Phone Care Team Providers Care Test Facility Engineer Name Role Phone Danay Roman SIDE PANEL HANGER Unavailable [phone] Abi Mcfarland SENIOR STACK ENGINEER Unavailable [phone] Gerson Mitchell MD Primary Care Provider [phone] Gerson Mitchell MD Unavailable [phone] Rickie Turner MD Unavailable [phone] Encounter Details Date Type Department Care Team (Late st Contact Info) Description 09/23/2023 Procedure Pass [facility] [address] [place] [address] Social History Tobacco Use Types Packs/Day Years [...] with a working camera? Not on file Sex and Gender Information Value Date Recorded Sex Assigned at Male 05/15/2020 7:48 PM EST Legal Sex Male 10:10 PM EDT Gender Identity Male 05/15/2020 7:48 PM EST Sexual Orientation Straight 09/08/2023 7: 48 AM EDT documented as of this encounter Plan of Treatment Upcoming Encounters Date Type Department Care Team (Late st Contact Info) Description 07/26/2025 11:20 AM EDT Office Visit [facility] [address] [facility] 3rd Floor, [address] [place] [address] Xavier Lee MD 22 [facility], [address] [place] [address] [email or web address] documented as of this encounter Visit Diagnoses Not on filedocumented in this encounter Additional Health Concerns Assessment Noted Time PHQ-2 Depression Total Score: 0 03/22/20 8:28 AM EST documented as of this encounter Care Teams Test Facility Engineer Relationship Specialty Start Date End Date Gerson Mitchell MD [address] [place] [address] [place] [address] PCP - General Internal Medicine 02/26/17 Danay Roman NP [address] [place] [address] [place] [address] Historical LMR Provider 02/02/17 Abi Mcfarland, YAMILA [address] [place] [address] [place] [address] Historical LMR Provider 02/02/17 Gerson Mitchell MD [address] [place] [address] [place] [address] Insurance Assigned Provider 07/20/23 Rickie Turner MD [address] [place] [address], [address] [place] [address] (work) [email or web address] Cardiology 09/23/23 documented as of this encounter Additional Source Comments The information contained in this document represents components of the legal health record. It is not the complete legal health record.[facility]
--- OUTSIDE RECORDS SUMMARY | 2024-12-17 10:38 | XMS_ITS | Encounter Summary ---
Author Organization [facility] Address [address] [place] [address] Phone Care Team Providers Care Hotel Assistant General Manager Name Role Phone Danay Roman NURSES SUPERVISOR Unavailable [phone] Abi Mcfarland BELT CONVEYOR DRIER Unavailable [phone] Gerson Mitchell MD Primary Care Provider [phone] Gerson Mitchell MD Unavailable [phone] Rickie Turner MD Unavailable [phone] Reason for Referral * MRI/CAT Scan - Closed Specialty Diagnoses / Procedures Referred By Sher t Referred To Contact Radiology Diagnoses Aortic valve stenosis, etiology of cardiac valve disease unspecified Procedures CT 3D Reconstruction Stent Plan And Surv Alex Cook MD Phone: tel: fax: [email or web address] Referral ID Status Reason Start Date Expiration Date Visits Re quested Visits Authorized [id number] Closed 11/05/2023 11/04/2024 1 1 Encounter Details Date Type Department Care Team (Late st Contact Info) Description 11/05/2023 Ancillary Orders [facility] Cardiac Surgery [address] [place] [address] Alex Cook MD [address] [place] [address] [email or web address] Aortic valve stenosis, etiology of cardiac valve disease unspecified (Primary Dx) Social History Tobacco Use Types Packs/Day Years [...] Description 07/26/2025 11:20 AM EDT Office Visit [facility] [address] [place] [address] 3rd Floor, [address] [place] [address] Xavier Lee MD 22 [facility], [address] [address] [email or web address] documented as of this encounter Results * CT 3D Reconstruction Stent Plan And Surv (11/05/2023 4:07 PM EDT) Anatomical Region Laterality Modality Heart, Thoracic Vasculature Comp uted Tomography 11/06/2023 9:17 AM EDT Impressions 11/06/2023 9:36 AM EDT * Pre-op TAVR measurements in narrative. * Aortic valve: tricuspid. The calcium score is 3172. * Diffuse atherosclerotic disease throughout the aorta with multifocal pedunculated plaques in the abdominal aorta resulting in mild luminal narrowing. * CADRADS 2/P2. Narrative 11/06/2023 9:[address] ANGIO CHEST WITH AND WITHOUT CONTRAST, CT ANGIO ABDOMEN/PELVIS WITH CONTRAST, CT 3D RECONSTRUCTION STENT PLAN AND SURV TECHNIQUE: Multidector-row CTA of the chest, abdomen and pelvis was performed before and after administration of intravenous contrast using tailored dose modulation techniques. Images were reconstructed in the axial, coronal, and sagittal planes, including angiographic image post-processing. COMPARISON: CT ANGIO PELVIS WITH AND WITHOUT CONTRAST FINDINGS: VASCULAR: LVOT Calcification: mild. Aortic valve: tricuspid. The calcium score is 3172. Aorta: Diffuse severe atherosclerotic disease throughout the aorta with a large amount of pedunculated plaques in the proximal abdominal aorta resulting in mild luminal narrowing. No dissection, aneurysm, or perivascular inflammation. Aortic arch calcifications: Moderate calcifications. Brachiocephalic trunk: No aneurysm, stenosis, dissection or occlusion. Right subclavian artery: No aneurysm, stenosis, dissection or occlusion. Proximal segment of the left common carotid artery: No aneurysm, stenosis, dissection or occlusion. Left subclavian artery: Mild proximal stenosis. Celiac axis: No aneurysm, stenosis, dissection or occlusion. Superior mesenteric artery: Severe proximal stenosis Right renal artery: Severe ostial stenosis Left renal artery: Severe ostial stenosis Inferior mesenteric artery: Mild ostial stenosis VEINS: All visualized veins are patent. No anomaly or deep venous thrombosis. Aortic measurements (maximum lumen diameter short-axis to centerline): Sinuses of Valsalva: Right 3.0 cm, Left 3.2 cm, Noncoronary 3.0 cm Sinotubular junction: 2.8 cm Ascending aorta: 3.5 cm Iliofemoral minimum diameters: Right: 6.9 x 7.6 mm Left: 6.9 x 8.7 mm CARDIAC: Annulus measurements: Cardiac phase used quantification: 35% Maximum diameter: 25.0 mm Minimum diameter: 21.6 mm Mean diameter: 23.3 mm Area: 413 mm2 Perimeter: 73 mm Optimum gantry angles: MALTESE 0, CAU 16 SOFT DRINK POWDER MIXER 0, MALTESE 18 MALTESE 30, SOFT DRINK POWDER MIXER 12 Coronary ostia height: Right: 18.4 mm (to annular plane) Left: 17.4 mm (to annular plane) Coronary CTA: The quality of the exam is good. The left and right coronaries have normal origins. The coronary circulation is left dominant. Left Main: The left main coronary artery bifurcates into the LAD and LCx A small amount of plaque resulting in minimal (1-24%) stenosis. Left Anterior Descending (LAD): The LAD wraps around the apex and gives rise to 2 diagonal (D) branches. A small amount of films and noncalcified plaque resulting in multifocal minimal (1-24%) stenosis. Left Circumflex (LCX): The left circumflex is a medium sized vessel that gives rise to 3 obtuse marginal (OM) branches. No plaque or stenosis. Right Coronary Artery (RCA): The RCA is a non-dominant vessel is small caliber vessel. A small amount of calcified plaque resulting in mild ostial stenosis. Total Coronary Plaque [place]: There is a moderate amount of coronary plaque (P2). NONVASCULAR: Devices/Tubes/Lines: None. Lungs: Bibasilar atelectasis. Pleura: Small pleural effusion. Mediastinum: Mild mitral annulus calcifications. Concentric hypertrophy of the left ventricle wall. No thyroid nodules. No pericardial effusion. Chest Wall: No chest wall mass. Liver: No focal lesions. Biliary: Prior cholecystectomy. No biliary ductal dilatation. Spleen: No splenomegaly. Pancreas: No ductal dilatation, peripancreatic fluid, or stranding. Adrenal Glands: No nodules. Kidneys/Ureters: Right kidney is normal. Large cysts are present in the left kidney. No hydronephrosis. Bowel: Small hiatal hernia. No bowel wall thickening or dilatation. Peritoneum/Retroperitoneum: No masses, pneumoperitoneum, or fluid. Lymph Nodes: Multiple mediastinal lymph nodes are present likely reactive and some of which are calcified. Pelvic Organs/Bladder: Large prostate measures up to 7 cm. Bones and Soft Tissues: No suspicious lytic or blastic lesions. Procedure Note Morris Monahan MD - 11/06/2023 CT ANGIO CHEST WITH AND WITHOUT CONTRAST, CT ANGIO ABDOMEN/PELVIS WITHCONTRAST, CT 3D RECONSTRUCTION STENT PLAN AND SURV TECHNIQUE: Multidector-row CTA of the chest, abdomen and pelvis wasperformed before and after administration of intravenous contrast usingtailored dose modulation techniques. Images were reconstructed in theaxial, coronal, and sagittal planes, including angiographic imagepost-processing. COMPARISON: CT ANGIO PELVIS WITH AND WITHOUT CONTRAST FINDINGS: VASCULAR: LVOT Calcification: mild. Aortic valve: tricuspid. The calcium score is 3172. Aorta: Diffuse severe atherosclerotic disease throughout the aorta with alarge amount of pedunculated plaques in the proximal abdominal aortaresulting in mild luminal narrowing. No dissection, aneurysm, orperivascular inflammation. Aortic arch calcifications: Moderate calcifications. Brachiocephalic trunk: No aneurysm, stenosis, dissection or occlusion. Right subclavian artery: No aneurysm, stenosis, dissection or occlusion. Proximal segment of the left common carotid artery: No aneurysm, stenosis,dissection or occlusion. Left subclavian artery: Mild proximal stenosis. Celiac axis: No aneurysm, stenosis, dissection or occlusion. Superior mesenteric artery: Severe proximal stenosis Right renal artery: Severe ostial stenosis Left renal artery: Severe ostial stenosis Inferior mesenteric artery: Mild ostial stenosis VEINS: All visualized veins are patent. No anomaly or deep venousthrombosis. Aortic measurements (maximum lumen diameter short-axis to centerline): Sinuses of Valsalva: Right 3.0 cm, Left 3.2 cm, Noncoronary 3.0 cm Sinotubular junction: 2.8 cm Ascending aorta: 3.5 cm Iliofemoral minimum diameters: Right: 6.9 x 7.6 mm Left: 6.9 x 8.7 mm CARDIAC: Annulus measurements: Cardiac phase used quantification: 35% Maximum diameter: 25.0 mm Minimum diameter: 21.6 mm Mean diameter: 23.3 mm Area: 413 mm2 Perimeter: 73 mm Optimum gantry angles: MALTESE 0, CAU 16 SOFT DRINK POWDER MIXER 0, MALTESE 18 MALTESE 30, SOFT DRINK POWDER MIXER 12 Coronary ostia height: Right: 18.4 mm (to annular plane) Left: 17.4 mm (to annular plane) Coronary CTA: The quality of the exam is good. The left and right coronaries have normal origins. The coronary circulation is left dominant. Left Main: The left main coronary artery bifurcates into the LAD and LCx A small amount of plaque resulting in minimal (1-24%) stenosis. Left Anterior Descending (LAD): The LAD wraps around the apex and gives rise to 2 diagonal (D) branches. A small amount of films and noncalcified plaque resulting in multifocalminimal (1-24%) stenosis. Left Circumflex (LCX): The left circumflex is a medium sized vessel that gives rise to 3 obtusemarginal (OM) branches. No plaque or stenosis. Right Coronary Artery (RCA): The RCA is a non-dominant vessel is small caliber vessel. A small amount of calcified plaque resulting in mild ostial stenosis. Total Coronary Plaque [place]: There is a moderate amount of coronary plaque (P2). NONVASCULAR: Devices/Tubes/Lines: None. Lungs: Bibasilar atelectasis. Pleura: Small pleural effusion. Mediastinum: Mild mitral annulus calcifications. Concentric hypertrophy ofthe left ventricle wall. No thyroid nodules. No pericardial effusion. Chest Wall: No chest wall mass. Liver: No focal lesions. Biliary: Prior cholecystectomy. No biliary ductal dilatation. Spleen: No splenomegaly. Pancreas: No ductal dilatation, peripancreatic fluid, or stranding. Adrenal Glands: No nodules. Kidneys/Ureters: Right kidney is normal. Large cysts are present in theleft kidney. No hydronephrosis. Bowel: Small hiatal hernia. No bowel wall thickening or dilatation. Peritoneum/Retroperitoneum: No masses, pneumoperitoneum, or fluid. Lymph Nodes: Multiple mediastinal lymph nodes are present likely reactiveand some of which are calcified. Pelvic Organs/Bladder: Large prostate measures up to 7 cm. Bones and Soft Tissues: No suspicious lytic or blastic lesions. IMPRESSION: * Pre-op TAVR measurements in narrative. * Aortic valve: tricuspid. The calcium score is 3172. * Diffuse atherosclerotic disease throughout the aorta with multifocalpedunculated plaques in the abdominal aorta resulting in mild luminalnarrowing. * CADRADS 2/P2. Alex Cook MD IMG CT Final Result documented in this encounter Visit Diagnoses Diagnosis Aortic valve stenosis, etiology of cardiac valve disease unspecified Aortic valve stenosis, etiology of cardiac valve disease unspecified- Primary documented in this encounter Additional Health Concerns Assessment Noted Time PHQ-2 Depression Total Score: 0 03/22/20 21 8:28 AM EST documented as of this encounter Care Teams Hotel Assistant General Manager Relationship Specialty Start Date End Date Gerson Mitchell MD [address] [place] [address] [address] [place] [address] PCP - General Internal Medicine 02/26/17 Danay Roman NP [address] [place] [address] [address] [place] [address] Historical LMR Provider 02/02/17 Abi Mcfarland CNP [address] [place] [address] [place] [address] [email or web address] Historical LMR Provider 02/02/17 Gerson Mitchell MD [address] [place] [address] [place] [address] [email or web address] Insurance Assigned Provider 07/20/23 Rickie Turner MD [address] [place] [address], [address] [address] [email or web address] Cardiology 09/23/23 documented as of this encounter Additional Source Comments The information contained in this document represents components of the legal health record. It is not the complete legal health record.[facility]
--- OUTSIDE RECORDS SUMMARY | 2024-12-17 10:38 | XMS_ITS | Clinical Summary ---
Author Organization [facility] Address [address] [place] [address] Phone Care Team Providers Care Robot Programmer Name Role Phone Danay Roman PSYCHIATRIC MENTAL HEALTH NURSE Unavailable [phone] Abi Mcfarland HIDE CLEANER Unavailable [phone] Gerson Mitchell MD Primary Care Provider [phone] Gerson Mitchell MD Unavailable [phone] Rickie Turner MD Unavailable [phone] Allergies No known active allergies Medications GRAPE SEED EXTRACT, BULK, MISC Active BROMELAINS ORAL Take 1 capsule by mouth as needed. Active b complex vitamins capsule Take 1 capsule by mouth daily. Active aspirin 81 MG EC tablet Take 1 tablet (81 mg total) by mouth daily. 90 tablet 5 4 Active colchicine (COLCRYS) 0.6 mg tablet Take 0.6 mg by mouth as needed (gout flare). 4 Active amoxicillin (AMOXIL) 500 MG capsule Take 4 capsules (2,000 mg total) by mouth once as needed (take all 4 capsules 30-60 minutes prior to dental work). 12 capsule 4 Active ezetimibe (ZETIA) 10 mg tablet Take 1 tablet (10 mg total) by mouth daily. 90 tablet 5 4 Active tamsulosin (FLOMAX) 0.4 mg CapIndications:BP H associated with nocturia Take 2 capsules (0.8 mg total) by mouth nightly at bedtime. 180 capsule 2 5 Active amLODIPine (NORVASC) 10 MG tabletIndications :Essential hypertension Take 1 tablet (10 mg total) by mouth daily. 90 tablet 3 5 02/03/20 25 Active carvedilol (COREG) 12.5 MG tablet Take 1 tablet (12.5 mg total) by mouth 2 (two) times a day with meals. 5 Active hydrALAZINE (APRESOLINE) 25 MG tablet Take 35 mg by mouth 3 (three) times a day. Active Active Problems Problem Noted Date Diagnosed [...] urgency. Elevated PSA. Will place referral to [facility] urology for further evaluation; patient would be interested in PAE as treatment option for his BPH. Assessment & Plan (08/28/2017 2:19 PM EDT): Stable on [place]. F/u for any worsening urinary frequency or [...] Encounters Date Type Department Care Team Description 12/03/2024 Orders Only [facility] [place] [facility] [address] [facility] [address] [place] [address] Provider, MD Venus 11/19/2024 Orders Only [facility] [address] [place] [address] Uriel Perkins MD, PhD 11/18/20[address] [facility] Cardiopulmonary Rehabilitation [address] [place] [address] 11/18/2024 Documentation [facility] Cardiopulmonary Rehabilitation [address] [place] [address] Zenia Hughes RN CR Discharge 11/13/2024 4:00 PM EDT Office Visit [facility] [address] [facility] 3rd Floor, [address] [place] [address] Esperanza Montoya DNP Essential hypertension (Primary Dx); Nonrheumatic aortic valve stenosis; Pure hypercholesterolem ia; Stenosis of carotid artery, unspecified laterality 11/07/2024 10:25 AM EDT - 11/07/2024 11:59 PM EDT Hospital Encounter [facility] Laboratory [address] [place] [address] Gerson Mitchell MD Discharge Disposition: Home or Self Care 11/06/2024 Orders Only [facility] INTERV RAD [address] [place] [address] Edgar Hunt MD Benign prostatic hyperplasia with lower urinary tract symptoms, symptom details unspecified (Primary Dx) 11/05/2024 Telephone [facility] Urology [address] [facility] [address] [place] [address] Brittaney Hassan 11/04/2024 10:45 AM EDT Office [address] [facility] Cardiopulmonary Rehabilitation [address] [place] [address] Rickie Turner MD S/P TAVR (transcatheter aortic valve replacement) (Primary Dx) 11/04/[address] [facility] Cardiopulmonary Rehabilitation [address] [place] [address] 11/04/2024 Orders Only [facility] [place] [address] [address], [address] [place] [address] Rickie Turner MD Essential hypertension 11/04/[address] [facility] Medicine Virtual Department [address] [place] [address] Rickie Turner MD 10/28/2024 Orders Only [facility] Medicine [address] [place] [address] ProviderVenus MD 10/27/2024 8:30 AM EDT Office Visit [address] 3rd Floor, [address] [place] [address] Esperanza Montoya DNP Essential hypertension (Primary Dx); Pure hypercholesterolem ia; Benign essential hypertension; Nonrheumatic aortic valve stenosis 10/14/2024 9:15 AM EDT Telemedicine - audio only [facility] Cardiac Surgery [address] [place] [address] Isabela Marlow PA-C DiStefano, Jessica, PA-C S/P TAVR (transcatheter aortic valve replacement) (Primary Dx) 10/09/2024 11:14 AM EDT - 10/09/2024 11:59 PM EDT Hospital Encounter [facility] Echo Lab [address] [place] [address] Felicitas Pastrana MD Discharge Disposition: Home or Self Care 10/07/2024 10:45 AM EDT Office Visit [facility] Cardiopulmonary Rehabilitation [address] [place] [address] Rickie Turner MD S/P TAVR (transcatheter aortic valve replacement) (Primary Dx) 10/07/[address] [facility] Cardiopulmonary Rehabilitation [address] [place] [address] 09/25/2024 10:45 AM EDT Office Visit [facility] Cardiopulmonary Rehabilitation [address] [place] [address] Rickie Turner MD S/P TAVR (transcatheter aortic valve replacement) (Primary Dx) 09/23/2024 10:45 AM EDT Office Visit [facility] Cardiopulmonary Rehabilitation [address] [place] [address] Rickie Turner MD S/P TAVR (transcatheter aortic valve replacement) (Primary Dx) 09/21/2024 10:45 AM EDT Office Visit [facility] Cardiopulmonary Rehabilitation [address] [place] [address] Rickie Turner MD S/P TAVR (transcatheter aortic valve replacement) (Primary Dx) 11/15/[address] [facility] Echo Lab [address] [place] [address] from Last 3 Months Immunizations Immunization Administration Dates Next Due COVID-19 (Pre-02/04) Pfizer Vaccine, mRNA, PF 07/23/2021,06/08/2020,05/18/2020 Hepatitis A, Unspecified 12/18/2011 INFLUENZA, SPLIT VIRUS, TRIVALENT PF 12/14/2015 INFLUENZA, SPLIT VIRUS, TRIV ALENT W/ PRESERVATIVE IM 12/18/2011 Influenza High-Dose Quadriva lent Preservative Free IM 12/26/2021 Influenza High-Dose Trivalen t Preservative Free IM 12/15/2024,02/01/2015,02/04/2014,03/09 Influenza Quadrivalent Adjuv anted Preservative Free IM [...] you interested in more education? Not on tritsa e 08/10/2022 Are you concerned about learning? [...] Description 07/26/2025 11:20 AM EDT Office Visit [facility] [address] [place] [address] [address]rd Floor, [address] [place], [place] [id number] Xavier Lee MD [address] [facility], [address] [place] [address] [email or web address] Due Date Last Done Comments COLOGUARD 1988 FIT TEST 1988 FOBT 1988 SIGMOIDOSCOPY 1988 VIRTUAL COLONOSCOPY 1988 COLONOSCOPY 03/25/2020 03/25/2015 COLORECTAL CANCER SCREENING 03/25/2020 Adult Td,Tdap Booster 12/22/2020 12/22/2010 INFLUENZA VACCINE (#1) 2024 , 03/02/2024, 01/02/2023, Additional history exists COVID-19 VACCINE ( season) 2024 12/16/2023, 01/10/2023, [...] this topic Medical Devices Implanted Type Area Securities And Real Estate Director Device Identifier Shelf Expiration Date Model / Serial / Lot Commander Ultra 23mm S3 - [id number] Implanted:Qty : 1 on 11/14/2023 by Alex Cook MD at [facility] Prosthetic Valve Heart [employer] 05/09/2026 [id number] / [id number] / Bilateral Inguinal Mesh Procedures Procedure Name Priority Date/Time Associated Diagnosis Comments OUTSIDE MR ABDOMEN REPORT ONLY Routine 12/03/2024 11:20 AM EDT PSA DIAGNOSTIC (MONITORING) Routine 11/07/2024 10:33 AM [...] Recently Relevant to Health Maintenance Results * Outside MR Abdomen Report Only (12/03/2024 11:20 AM EDT) us Historical Provider MD COLINDRES MR ABDOMEN Final Res ult * (ABNORMAL) Comprehensive metabolic panel (11/07/2024 10:33 AM EDT) SODIUM 143 133 - 146 mmol/L [facility] POTASSIUM 4.2 3.3 - 5.1 mmol/L [facility] CHLORIDE 107 96 - 108 mmol/L [facility] CO2 24 21 - 35 mmol/L [facility] BUN 30(H) 6 - 19 mg/dL [facility] CREATININE 2.60(H) 0.5 - 1.5 mg/dL [facility] GLUCOSE 142(H) 70 - 99 mg/dL [facility] ALBUMIN 4.0 3.9 - 4.8 g/dL [facility] TOTAL PROTEIN 7.1 6.5 - 8.0 g/dL [facility] CALCIUM 9.1 8.4 - 10.3 mg/dL [facility] ALKALINE PHOSPHATASE 53 39 - 117 U/L [facility] TOTAL BILIRUBIN 0.3 0.0 - 1.2 mg/dL [facility] AST 13 0 - 37 U/L [facility] ALT 8 0 - 40 U/L [facility] GLOBULIN 3.1 1 - 4.8 g/dL [facility] EGFR 24(L) >59 mL/min/1.7 3m2 [facility] Comment:Estimated glomerular filtration rate calculated using the CKD-EPI refit equation. ANION GAP 16 10 - 20 mmol/L [facility] Blood 11/07/2024 10:3 3 AM EDT 11/07/2024 10:36 AM EDT us Gerson Mitchell MD LAB BLOOD ORDERABLES Final R esult [address] [address] * (ABNORMAL) PSA diagnostic (monitoring) (11/07/2024 10:33 AM EDT) PSA 11.70(H) 0 - 4.00 ng/mL [facility] Comment: Test Methodology Dawit e801 Patient results determined by assays using different manufacturers or methods may not be comparable. Blood 11/07/2024 10:3 3 AM EDT 11/07/2024 10:36 AM EDT Gerson Mitchell MD LAB BLOOD ORDERABLES Final R esult Performing Organization Address City/[facility]/ZIP Co de Phone Number [address] [address] * (ABNORMAL) CBC (11/07/2024 10:33 AM EDT) WBC 8.08 4.00 - 11.00 K/uL [facility] RBC 4.40(L) 4.50 - 5.90 M/uL [facility] HGB 13.5 13.5 - 17.5 g/dL [facility] HCT 41.6 41.0 - 53.0 % [facility] PLT 144(L) 150 - 450 K/uL [facility] MCV 94.5 80.0 - 100.0 fL [facility] MCH 30.7 27.0 - 31.0 pg [facility] MCHC 32.5 32.0 - 36.0 g/dL [facility] RDW 13.5 11.5 - 14.5 % [facility] MPV 10.5 8.4 - 12.0 fL [facility] NRBC 0.00 0.00 /100 WBCs [facility] ABSOLUTE NRBC 0.00 0.00 K/uL [facility] Blood 11/07/2024 10:3 3 AM EDT 11/07/2024 10:36 AM EDT Gerson Mitchell MD LAB BLOOD ORDERABLES Final R esult Performing Organization Address City/[facility]/ZIP Co de Phone Number [address] [address] * Outside US Imaging??Report Only (10/28/2024 7:51 [...] (04/11/2024 8:30 AM EST) HDL 46 mg/dL [facility] Comment: Interpretation <40 mg/dL: Low HDL cholesterol (major risk factor for CHD) Greater than or equal to 60 mg/dL: High HDL cholesterol ( negative risk factor for CHD) HDL - cholesterol is affected by a number of factors, e.g. smoking, excerise, hormones, sex and age. CHOLESTEROL 185 0 - 240 mg/dL [facility] TRIGLYCERIDES 71 30 - 160 mg/dL [facility] LDL 125 50 - 129 mg/dL [facility] Comment: LDL levels in terms of risk for coronary heart disease: <100 mg/dL: Optimal 100-129 mg/dL: Near or above optimal 130-159 mg/dL: Borderline high 160-189 mg/dL: High >190 mg/dL: Very High CARDIAC RISK RATIO 4.0 3.4 - 5.0 C [facility] Blood 04/11/2024 8:30 AM EST 04/11/2024 8:34 AM EST Rickie Turner MD LAB BLOOD ORDERABLES Final Result [address] [address] * COLONOSCOPY FOR RESULT ENTRY ONLY (03/25/2015) [...] Insurance MEDICARE PART A & B [facility] MEDICARE SUPPLEMENT MEDICARE PART A & B MEDICARE SUPPLEMENT MEDICARE PART A & B Member Subscriber Plan / Payer (Ef fective 2008-) Name:Ne Kwong Member ID:[id number] Relation to Subscriber:Self Name:Ne Kwong Subscriber ID:[id number] Payer ID:[id number] Group ID:Not on file Type:Medicare Address: [employer] [address] [place], [place] [id number] [place] [address] MEDICARE SUPPLEMENT MEDICARE PART A & B [facility] MEDICARE SUPPLEMENT MEDICARE PART A & B Member Subscriber Plan / Payer (Ef fective 2008-Present) Name:Ne Kwong Member ID:[id number] Relation to Subscriber:Self Name:Ne Kwong Subscriber ID:[id number] Payer ID:[id number] Group ID:Not on file Type:Medicare Address: [employer] [address] [facility] MEDICARE SUPPLEMENT MEDICARE PART A & B MEDICARE SUPPLEMENT MEDICARE PART A & [place] [address] MEDICARE PART A & B MEDICARE SUPPLEMENT MEDICARE PART A & B [facility] MEDICARE SUPPLEMENT Advance Directives For more information, please contact: [phone] (9AM - 5PM [facility], Saturday-Saturday) * Full Code (Latest Code [...] 6:12 PM 07/28/2018 6:40 PM Care Teams Robot Programmer Relationship Specialty Start Date End Date Gerson Mitchell MD [address] [place] [address] [address] [place] [address] PCP - General Internal Medicine 02/26/17 Danay Roamn YONG [address] [place] [address] [place] [address] [email or web address] Historical LMR Provider 02/02/17 Abi Mcfarland CNP [address] [place] [address] Historical LMR Provider 02/02/17 Gerson Mitchell MD [address] [place] [address] [email or web address] Insurance Assigned Provider 07/20/23 Rickie Turner MD [address] [place] [address], [address] [address] [email or web address] Cardiology 09/23/23 Additional Source Comments The information contained in this document represents components of the legal health record. It is not the complete legal health record.[facility]
--- OUTSIDE RECORDS SUMMARY | 2024-12-17 10:38 | XMS_ITS | Encounter Summary ---
Author Organization [facility] Address [address] [place] [address] Phone Care Team Providers Care Evaluation Analyst Name Role Phone Gerson Mitchell MD Unavailable [phone] Gerson Mitchell MD Unavailable [phone] Danay Roman MILK BOTTLING MACHINE OPERATOR Unavailable [phone] Abi Mcfarland TELEVISION OPERATOR Unavailable [phone] Rhett Willams MD Unavailable Unavailable Gerson Mitchell MD Primary Care Provider [phone] Gerson Mitchell MD Unavailable [phone] Gerson Mitchell MD Unavailable [phone] Rickie Turner MD Unavailable [phone] Encounter Details Date Type Department Care Team (Late st Contact Info) Description 07/22/2018 Procedure Pass [facility], [address] [address] Social History Tobacco Use Types Packs/Day Years Used Date Smoking Tobacco: Never Smokeless Tobacco: Never Sex and Gender Information Value Date Recorded Sex Assigned at Male 05/15/2020 7:48 PM EST Legal Sex Male 10:10 PM EDT Gender Identity Male 05/15/2020 7:48 PM EST Sexual Orientation Straight 09/08/2023 7: 48 AM EDT documented as of this encounter Last Filed Vital Signs Vital Sign Reading Time Taken Comments Blood Pressure - - Pulse - - Temperature - - Respiratory Rate - - Oxygen Saturation - - Inhaled Oxygen Concentration - - Weight 68 kg (150 lb) 07/24/2018 2:17 PM EDT Height 172.7 cm (5' 8 ) 07/24/2018 2:17 PM EDT Body Mass Index 22.81 07/24/2018 2:17 PM EDT documented in this encounter Plan of Treatment Upcoming Encounters Date Type Department Care Team (Late st Contact Info) Description 07/26/2025 11:20 AM EDT Office Visit [facility] [address] [place] [address] 3rd Floor, [address] [place] [address] Xavier Lee MD 22 [facility], [address] [place] [address] documented as of this encounter Visit Diagnoses Not on filedocumented in this encounter Care Teams Evaluation Analyst Relationship Specialty Start Date End Date Gerson Mitchell MD [address] [place] [address] PCP - General Internal Medicine 02/26/17 Gerson Mitchell MD [address] [place] [address] Insurance Assigned Provider 01/19/17 10/25/18 Gerson Mitchell MD [address] [place] [address] Historical LMR Provider 02/02/17 1 Danay Roman NP [address] [place] [address] Historical LMR Provider 02/02/17 Abi Mcfarland CNP [address] [place] [address] [email or web address] Historical LMR Provider 02/02/17 Rhett Willams MD Historical LMR Provider 02/02/17 10/09/20 Gerson Mitchell MD [address] [place] [address] [address] [place] [address] [email or web address] Insurance Assigned Provider 07/22/19 04/23/20 Gerson Mitchell MD 14 [facility] [address] [place] [address] [email or web address] Insurance Assigned Provider 07/20/23 Rickie Turner MD [address] [place] [address] [email or web address] Cardiology 09/23/23 documented as of this encounter Additional Source Comments The information contained in this document represents components of the legal health record. It is not the complete legal health record.[facility]
--- OUTSIDE RECORDS SUMMARY | 2024-12-17 10:38 | XMS_ITS | Encounter Summary ---
Author Organization [facility] Address [facility] [place] [address] [address] Phone Care Team Providers Care Heavy Forging Machine Operator Name Role Phone Danay Roman PACKER SAUSAGE AND WIENER Unavailable [phone] Abi Mcfarland LONG TERM CARE PHLEBOTOMIST Unavailable [phone] Gerson Mitchell MD Primary Care Provider [phone] Gerson Mitchell MD Unavailable [phone] Rickie Turner MD Unavailable [phone] Encounter Details Date Type Department Care Team (Late st Contact Info) Description 11/15/2023 Procedure Pass [facility] Echo Lab [address] [place], [place] [id number] Social History Tobacco Use Types Packs/Day Years [...] Description 07/26/2025 11:20 AM EDT Office Visit [facility] [address] [place] [address] 3rd [facility], [address] [place] [address] Xavier Lee MD [address] [place] [address] [email or web address] documented as of this encounter Visit Diagnoses Not on filedocumented in this encounter Additional Health Concerns Assessment Noted Time PHQ-9 Depression Total Score: 4 02/26/20 24 10:35 AM EST PHQ-2 Depression Total Score: 0 03/22/20 21 8:28 AM EST documented as of this encounter Care Teams Heavy Forging Machine Operator Relationship Specialty Start Date End Date Gerson Mitchell MD [address] [place] [address] [place] [address] [email or web address] PCP - General Internal Medicine 02/26/17 Danay Roman NP [address] [place] [address] [place] [address] [email or web address] Historical LMR Provider 02/02/17 Abi Mcfarland CNP [address] [place] [address] [place] [address] [email or web address] Historical LMR Provider 02/02/17 Gerson Mitchell MD [address] [place] [address] [address] [place] [address] [email or web address] Insurance Assigned Provider 07/20/23 Rickie Turner MD [address] [place] [address] [email or web address] Cardiology 09/23/23 documented as of this encounter Additional Source Comments The information contained in this document represents components of the legal health record. It is not the complete legal health record.[facility]
--- OUTSIDE RECORDS SUMMARY | 2024-12-17 10:38 | XMS_ITS | Encounter Summary ---
Author Organization [facility] Address [address] [facility] [address] [place] [address] Phone Care Team Providers Care Unclaimed Property Manager Name Role Phone Danay Roman REAL ESTATE COORDINATOR Unavailable [phone] Abi Mcfarland DUMP ATTENDANT Unavailable [phone] Gerson Mitchell MD Primary Care Provider [phone] Gerson Mitchell MD Unavailable [phone] Rickie Turner MD Unavailable [phone] Encounter Details Date Type Department Care Team (Late st Contact Info) Description 09/23/2023 Procedure Pass [facility] [address] [place] [address] Social History Tobacco Use Types Packs/Day Years [...] Description 07/26/2025 11:20 AM EDT Office Visit [facility] [address] [facility] 3rd Floor, [address] [place] [address] Xavier Lee MD 22 [facility], [address] [place] [address] [email or web address] documented as of this encounter Visit Diagnoses Not on filedocumented in this encounter Additional Health Concerns Assessment Noted Time PHQ-2 Depression Total Score: 0 03/22/20 8:28 AM EST documented as of this encounter Care Teams Unclaimed Property Manager Relationship Specialty Start Date End Date Gerson Mitchell MD [address] [place] [address] [place] [address] PCP - General Internal Medicine 02/26/17 Danay Roman NP [address] [place] [address] [place] [address] Historical LMR Provider 02/02/17 Abi Mcfarland, YAMILA [address] [place] [address] [place] [address] Historical LMR Provider 02/02/17 Gerson Mitchell MD [address] [place] [address] [place] [address] Insurance Assigned Provider 07/20/23 Rickie Turner MD [address] [place] [address], [address] [place] [address] (work) [email or web address] Cardiology 09/23/23 documented as of this encounter Additional Source Comments The information contained in this document represents components of the legal health record. It is not the complete legal health record.[facility]
--- OUTSIDE RECORDS SUMMARY | 2024-12-17 10:39 | XMS_ITS | Encounter Summary ---
Author Organization [facility] Address [address] [place] [address] Phone Care Team Providers Care Fleecer Name Role Phone Gerson Mitchell MD Unavailable [phone] Danay Roman NP Unavailable [phone] Abi Mcfarland BEEF BREAKER Unavailable [phone] Rhett Willams MD Unavailable Unavailable Gerson Mitchell MD Primary Care Provider [phone] Gerson Mitchell MD Unavailable [phone] Gerson Mitchell MD Unavailable [phone] Rickie Turner MD Unavailable [phone] Encounter Details Date Type Department Care Team (Late st Contact Info) Description 11/13/2018 Procedure Pass OR Admitting Dept - [facility]3] Department [address] [place] [address] Social History Tobacco Use Types Packs/Day Years Used Date Smoking Tobacco: Never Smokeless Tobacco: Never Alcohol Use Standard Drinks/Week Comments Yes 1 (1 standard drink = 0.6 oz pur e alcohol) rarely few time a month Sex and Gender Information Value Date Recorded Sex Assigned at Male 05/15/2020 7:48 PM EST Legal Sex Male 10:10 PM EDT Gender Identity Male 05/15/2020 7:48 PM EST Sexual Orientation Straight 09/08/2023 7: 48 AM EDT documented as of this encounter Plan of Treatment Upcoming Encounters Date Type Department Care Team (Late Contact Info) Description 07/26/2025 11:20 AM EDT Office Visit [facility] [address] [place] [address] 3rd Floor, [address] [place] [address] Xavier Lee MD 22 [facility], [address] [place] [address] [email or web address] documented as of this encounter Visit Diagnoses Not on filedocumented in this encounter Care Teams Fleecer Relationship Specialty Start Date End Date Gerson Mitchell MD [address] [place] [address] [email or web address] PCP - General Internal Medicine 02/26/17 Gerson Mitchell MD [address] [place] [address] [email or web address] Historical LMR Provider 02/02/17 1 Danay Roman NP [address] [place] [address] [email or web address] Historical LMR Provider 02/02/17 Abi Mcfarland, BEEF BREAKER [address] [place] [address] [email or web address] Historical LMR Provider 02/02/17 Rhett Willams MD Historical LMR Provider 02/02/17 10/09/20 Gerson Mitchell MD [address] [place] [address] [email or web address] Insurance Assigned Provider 07/22/19 04/23/20 Gerson Mitchell MD [address] [place], [place] [address] [place] [address] [email or web address] Insurance Assigned Provider 07/20/23 Rickie Turner MD [address] [place] [address], [facility] [address] [place] [address] [email or web address] Cardiology 09/23/23 documented as of this encounter Additional Source Comments The information contained in this document represents components of the legal health record. It is not the complete legal health record.[facility]
--- OUTSIDE RECORDS SUMMARY | 2024-12-17 10:39 | XMS_ITS | Encounter Summary ---
Author Organization [facility] Address [address] [place] [address] Phone Care Team Providers Care Building Specialist Name Role Phone Danay Roman STONE DRILLER Unavailable [phone] Abi Mcfarland PUBLIC RELATIONS SENIOR ASSOCIATE Unavailable [phone] Gerson Mitchell MD Primary Care Provider [phone] Gerson Mitchell MD Unavailable [phone] Rickie Turner MD Unavailable [phone] Encounter Details Date Type Department Care Team (Late st Contact Info) Description 09/04/2023 Procedure Pass [facility] [place] [address] Social History Tobacco Use Types Packs/Day Years [...] Description 07/26/2025 11:20 AM EDT Office Visit [facility] [address] [facility] 3rd Floor, [address] [place] [address] aXvier Lee MD [address] [address] [email or web address] documented as of this encounter Visit Diagnoses Not on filedocumented in this encounter Additional Health Concerns Assessment Noted Time PHQ-2 Depression Total Score: 0 03/22/20 8:28 AM EST documented as of this encounter Care Teams Building Specialist Relationship Specialty Start Date End Date Gerson Mitchell MD [address] [place] [address] [place] [address] PCP - General Internal Medicine 02/26/17 Danay Roman NP [address] [place] [address] [place] [address] Historical LMR Provider 02/02/17 Abi Mcfarland, YAMILA [address] [place] [address] [place] [address] Historical LMR Provider 02/02/17 Gerson Mitchell MD [address] [place] [address] [place] [address] Insurance Assigned Provider 07/20/23 Rickie Turner MD [address] [place] [address], [address] [place] [address] Cardiology 09/23/23 documented as of this encounter Additional Source Comments The information contained in this document represents components of the legal health record. It is not the complete legal health record.[facility]
--- OUTSIDE RECORDS SUMMARY | 2024-12-17 10:39 | XMS_ITS | Encounter Summary ---
Author Organization [facility] Address [address] [facility] [place] [address] [place] [address] Phone Care Team Providers Care Envelope Stamping Machine Operator Name Role Phone Danay Roman CROWN ASSEMBLY MACHINE SET UP MECHANIC Unavailable [phone] Abi Mcfarland PROGRESS MAN Unavailable [phone] Gerson Mitchell MD Primary Care Provider [phone] Gerson Mitchell MD Unavailable [phone] Rickie Turner MD Unavailable [phone] Encounter Details Date Type Department Care Team (Late st Contact Info) Description 08/01/2023 Procedure Pass [facility], [place] 2 [address] [facility], 2nd Floor, [address] [place] [address] Social History Tobacco Use Types Packs/Day Years [...] Description 07/26/2025 11:20 AM EDT Office Visit [facility] [address] [place] [address] 3rd Floor, [address] [place] [address] Xavier Lee MD [address] [place] [address], [address] [address] [email or web address] documented as of this encounter Visit Diagnoses Not on filedocumented in this encounter Additional Health Concerns Assessment Noted Time PHQ-2 Depression Total Score: 0 03/22/20 21 8:28 AM EST documented as of this encounter Care Teams Envelope Stamping Machine Operator Relationship Specialty Start Date End Date Gerson Mitchell MD [address] [place] [address] PCP - General Internal Medicine 02/26/17 Danay Roman NP [address] [place] [address] Historical LMR Provider 02/02/17 Abi Mcfarland CNP [address] [place] [address] Historical LMR Provider 02/02/17 Gerson Mitchell MD [address] [place] [address] Insurance Assigned Provider 07/20/23 Rickie Turner MD [address] [place] [address], [address] [address] [email or web address] Cardiology 09/23/23 documented as of this encounter Additional Source Comments The information contained in this document represents components of the legal health record. It is not the complete legal health record.[facility]
--- OUTSIDE RECORDS SUMMARY | 2024-12-17 10:39 | XMS_ITS | Encounter Summary ---
Author Organization [facility] Address [facility] [employer] [address] [address] Phone Care Team Providers Care Metal Ceiling Hanger Name Role Phone Danay Roman CRUISE DIRECTOR Unavailable [phone] Abi Mcfarland SODA DISPENSER Unavailable [phone] Gerson Mitchell MD Primary Care Provider [phone] Gerson Mitchell MD Unavailable [phone] Rickie Turner MD Unavailable [phone] Encounter Details Date Type Department Care Team (Late st Contact Info) Description 11/15/2023 Procedure Pass [facility] [address] [place] [address] Social History Tobacco Use Types Packs/Day [...] Description 07/26/2025 11:20 AM EDT Office Visit [facility] [address] [place] [address] 3rd [facility], [address] [place] [address] Xavier Lee MD [address] [place] [address] [email or web address] documented as of this encounter Visit Diagnoses Not on filedocumented in this encounter Additional Health Concerns Assessment Noted Time PHQ-2 Depression Total Score: 0 03/22/20 21 8:28 AM EST documented as of this encounter Care Teams Metal Ceiling Hanger Relationship Specialty Start Date End Date Gerson Mitchell MD [address] [place] [address] [address] [place] [address] [email or web address] PCP - General Internal Medicine 02/26/17 Danay Roman NP 14 [facility] [address] [place] [address] Historical LMR Provider 02/02/17 Abi Mcfarland, YAMILA [address] [facility] [address] [place] [address] [email or web address] Historical LMR Provider 02/02/17 Gerson Mitchell MD [address] [place] [address] [address] [place] [address] [email or web address] Insurance Assigned Provider 07/20/23 Rickie Turner MD [address] [place] [address] [email or web address] Cardiology 09/23/23 documented as of this encounter Additional Source Comments The information contained in this document represents components of the legal health record. It is not the complete legal health record.[facility]
--- OUTSIDE RECORDS SUMMARY | 2024-12-17 10:39 | XMS_ITS | Encounter Summary ---
Author Organization [facility] Address [facility] [address] [place] [address] Phone Care Team Providers Care Firer Electric Locomotive Name Role Phone Danay Roman APPLE CHECKER Unavailable [phone] Abi Mcfarland SOCIAL WORK ASSOCIATE Unavailable [phone] Gerson Mitchell MD Primary Care Provider [phone] Gerson Mitchell MD Unavailable [phone] Rickie Turner MD Unavailable [phone] Encounter Details Date Type Department Care Team (Late st Contact Info) Description 11/14/2023 Procedure Pass [facility] Cardiac Emergency Dispatcher [address] [place] [address] Social History Tobacco Use Types Packs/Day Years [...] AM EDT documented as of this encounter Functional Status * Calculated C-SSRS Risk Score (Lifetime/Recent) Answer Date of Assessment Author No Risk Indicated 11/14/2023 9:00 PM EDT Tracey Stanley RN * [place] Suicide Severity Rating Scale (Screener/Recent Self-Report) Question Answer Date of Assessment Author 1. Wish to be (Past 1 Month) No 024 9:00 PM EDT Esperanza Stanley RN 2. Non-Specific Active Suici christian Thoughts (Past 1 Month) No 11/14/2023 9:00 PM EDT Esperanza Stanley RN 6. Suicidal Behavior (Lifetime) No 9:00 PM EDT Esperanza Stanley RN documented as of this encounter Plan of Treatment Upcoming Encounters Date Type Department Care Team (Late st Contact Info) Description 07/26/2025 11:20 AM EDT Office Visit [facility] [address] [place] [address] 3rd Floor, [address] [place] [address] Xavier Lee MD [address] [place] [address], [address] [address] [email or web address] documented as of this encounter Visit Diagnoses Not on filedocumented in this encounter Additional Health Concerns Assessment Noted Time PHQ-2 Depression Total Score: 0 03/22/20 21 8:28 AM EST documented as of this encounter Care Teams Firer Electric Locomotive Relationship Specialty Start Date End Date Gerson Mitchell MD [address] [place] [address] [place] [address] [email or web address] PCP - General Internal Medicine 02/26/17 Danay Roman, APPLE CHECKER [address] [place] [address] [place] [address] [email or web address] Historical LMR Provider 02/02/17 Abi Mcfarland, YAMILA [address] [place] [address] [place] [address] [email or web address] Historical LMR Provider 02/02/17 Gerson Mitchell MD [address] [place] [address] [place] [address] [email or web address] Insurance Assigned Provider 07/20/23 Rickie Turner MD [address] [place] [address], [address] [address] [email or web address] Cardiology 09/23/23 documented as of this encounter Additional Source Comments The information contained in this document represents components of the legal health record. It is not the complete legal health record.[facility]
--- OUTSIDE RECORDS SUMMARY | 2024-12-17 10:39 | XMS_ITS | Encounter Summary ---
Author Organization [facility] Address [address] [place] [address] Phone Care Team Providers Care Sports Equipment Repairer Name Role Phone Gerson Mitchell MD Unavailable [phone] Gerson Mitchell MD Unavailable [phone] Danay Roman SOLVENT PLANT OPERATOR Unavailable [phone] Abi Mcfarland METAL AND PLASTIC HEATER Unavailable [phone] Rhett Willams MD Unavailable Unavailable Gerson Mitchell MD Primary Care Provider [phone] Gerson Mitchell MD Unavailable [phone] Gerson Mitchell MD Unavailable [phone] Rickie Turner MD Unavailable [phone] Encounter Details Date Type Department Care Team (Late st Contact Info) Description 07/27/2018 Procedure Pass [facility], [address] [address] Social History Tobacco Use Types Packs/Day Years [...] Description 07/26/2025 11:20 AM EDT Office Visit [facility] [address] [place] [address] 3rd Floor, [address] [place] [address] Xavier Lee MD [address] [facility], [address] [place] [address] [email or web address] documented as of this encounter Visit Diagnoses Not on filedocumented in this encounter Care Teams Sports Equipment Repairer Relationship Specialty Start Date End Date Gerson Mitchell MD [address] [place] [address] [email or web address] PCP - General Internal Medicine 02/26/17 Gerson Mitchell MD [address] [place] [address] [email or web address] Insurance Assigned Provider 01/19/17 10/25/18 Gerson Mitchell MD [address] [place] [address] [email or web address] Historical LMR Provider 02/02/17 1 Danay Roman, SOLVENT PLANT OPERATOR [address] [place] [address] [email or web address] Historical LMR Provider 02/02/17 Abi Mcfarland, METAL AND PLASTIC HEATER [address] [place] [address] [email or web address] Historical LMR Provider 02/02/17 Rhett Willams MD Historical LMR Provider 02/02/17 10/09/20 Gerson Mitchell MD [address] [place] [address] [email or web address] Insurance Assigned Provider 07/22/19 04/23/20 Gerson Mitchell MD [address] [place] [address] [address] [place] [address] [email or web address] Insurance Assigned Provider 07/20/23 Rickie Turner MD [address] [place] [address], [address] [address] [email or web address] Cardiology 09/23/23 documented as of this encounter Additional Source Comments The information contained in this document represents components of the legal health record. It is not the complete legal health record.[facility]
--- OUTSIDE RECORDS SUMMARY | 2024-12-17 10:39 | XMS_ITS | Clinical Summary ---
Author Organization [facility], Address [address] [place] [phone] Phone Care Team Providers Care Kiln Door Builder Name Role Phone Gerson Mitchell MD Primary Care Provider [phone] Social History Tobacco Use Types Packs/Day Years Used Date Smoking Tobacco: Never Assessed Sex and Gender Information Value Date Recorded Sex Assigned at Not on file Legal Sex Male 3:44 PM EDT Gender Identity Not on file Sexual Orientation Not on file Plan of Treatment Health Maintenance Due Date Last Done Comments Influenza Vaccine (#1) 2024 , 01/02/2023, 01/12/2021, Additional history exists Pneumococcal Vaccine: 50+ Years Completed 12/14/2015, 08/24/2010 Hepatitis B Vaccine Aged Out No longe r eligible based on patient's age to complete [place] [id number] Medicare [facility] Care Teams Kiln Door Builder Relationship Specialty Start Date End Date Gerson Mitchell MD [address] [place] [address] [address] [place] [address] PCP - General Internal Medicine 09/02/24
--- OUTSIDE RECORDS SUMMARY | 2024-12-17 10:39 | XMS_ITS | Encounter Summary ---
Author Organization [facility] Address [address] [facility] [address] [place] [address] Phone Care Team Providers Care Newspaper Correspondent Name Role Phone Danay Roman OUTDOOR EDUCATION TEACHER Unavailable [phone] Abi Mcfarland CONTROL SPECIALIST Unavailable [phone] Gerson Mitchell MD Primary Care Provider [phone] Gerson Mitchell MD Unavailable [phone] Rickie Turner MD Unavailable [phone] Encounter Details Date Type Department Care Team (Late st Contact Info) Description 11/05/2023 Procedure Pass [facility] Rad[facility] [address] [place] [address] Social History Tobacco Use Types Packs/Day Years [...] Description 07/26/2025 11:20 AM EDT Office Visit [facility] [address] [facility] 3rd Floor, [address] [place] [address] Xavier Lee MD 22 [facility], [address] [place] [address] [email or web address] documented as of this encounter Visit Diagnoses Not on filedocumented in this encounter Additional Health Concerns Assessment Noted Time PHQ-2 Depression Total Score: 0 03/22/20 8:28 AM EST documented as of this encounter Care Teams Newspaper Correspondent Relationship Specialty Start Date End Date Gerson Mitchell MD [address] [place] [address] [place] [address] PCP - General Internal Medicine 02/26/17 Danay Roman NP [address] [place] [address] [place] [address] Historical LMR Provider 02/02/17 Abi Mcfarland, YAMILA [address] [place] [address] [place] [address] Historical LMR Provider 02/02/17 Gerson Mitchell MD [address] [place] [address] [place] [address] Insurance Assigned Provider 07/20/23 Rickie Turner MD [address] [place] [address], [address] [place] [address] ([email or web address]) [email or web address] Cardiology 09/23/23 documented as of this encounter Additional Source Comments The information contained in this document represents components of the legal health record. It is not the complete legal health record.[facility]
--- OUTSIDE RECORDS SUMMARY | 2024-12-17 10:39 | XMS_ITS | Encounter Summary ---
Author Organization [facility] Address [address] [place] [address] Phone Care Team Providers Care Barrel Lapper Name Role Phone Gerson Mitchell MD Unavailable [phone] Gerson Mitchell MD Unavailable [phone] Danay Roman NP Unavailable [phone] Abi Mcfarland MOLDED GOODS INSPECTOR TRIMMER Unavailable [phone] Rhett Willams MD Unavailable Unavailable Gerson Mitchell MD Primary Care Provider [phone] Gerson Mitchell MD Unavailable [phone] Gerson Mitchell MD Unavailable [phone] Rickie Turner MD Unavailable [phone] Encounter Details Date Type Department Care Team (Late st Contact Info) Description 12/05/2017 Ancillary Orders [facility] [place] [facility] 14 [facility] [address] [place], [place] [phone] Danay Roman, YONG 14 [facility] [address] [place], [place] [phone] [email or web address] Pain of left hip joint Social History Tobacco Use Types Packs/Day Years [...] Description 07/26/2025 11:20 AM EDT Office Visit [facility] [address] [facility] 3rd Floor, [address] [place] [address] Xavier Lee MD 22 [facility], [address] [place] [address] [email or web address] documented as of this encounter Results * XR HIP 2-3 VW LEFT (12/05/2017 12:19 PM EDT) Anatomical Region Laterality Modality Hip Left Radiographic Jennifer ging 12/05/2017 12:3 2 PM EDT Impressions 12/05/2017 12:34 PM EDT Minimal degenerative spurring at the left hip. No other significant abnormalities. POS - [id number] Narrative 12/05/2017 12:34 PM EDT HISTORY: Pain after injury three weeks ago. COMPARISON: None. FINDINGS: AP and lateral views. No evidence of fractures, subluxations or dislocations. No suspicious lucencies or areas of sclerosis within the bones. No evidence of flattening of the femoral head. Joint spaces well-maintained. Minimal spurring. No significant deformities. No suspicious soft tissue calcifications. Procedure Note Joel Dillon MD - 12/05/2017 HISTORY: Pain after injury three weeks ago. COMPARISON: None. FINDINGS: AP and lateral views. No evidence of fractures, subluxations or dislocations. No suspiciouslucencies or areas of sclerosis within the bones. No evidence offlattening of the femoral head. Joint spaces well-maintained. Minimalspurring. No significant deformities. No suspicious soft tissuecalcifications. IMPRESSION: Minimal degenerative spurring at the left hip. No other significantabnormalities. POS - [id number] Gerson Mitchell MD IMG XR PELVIS Final Result documented in this encounter Visit Diagnoses Diagnosis Pain of left hip joint Pain of left hip joint documented in this encounter Care Teams Barrel Lapper Relationship Specialty Start Date End Date Gerson Mitchell MD [address] [place] [address] [email or web address] PCP - General Internal Medicine 02/26/17 Gerson Mitchell MD [address] [place] [address] [email or web address] Insurance Assigned Provider 01/19/17 10/25/18 Gerson Mitchell MD [address] [place] [address] [email or web address] Historical LMR Provider 02/02/17 1 Danay Roman NP [address] [place] [address] [email or web address] Historical LMR Provider 02/02/17 Abi Mcfarland, YAMILA [address] [place] [address] [email or web address] Historical LMR Provider 02/02/17 Rhett Willams MD Historical LMR Provider 02/02/17 10/09/20 Gerson Mitchell MD [address] [place] [address] [email or web address] Insurance Assigned Provider 07/22/19 04/23/20 Gerson Mitchell MD [address] [place] [address] [email or web address] Insurance Assigned Provider 07/20/23 Rickie Turner MD [address] [place] [address], [facility] [address] [place] [address] [email or web address] Cardiology 09/23/23 documented as of this encounter Additional Source Comments The information contained in this document represents components of the legal health record. It is not the complete legal health record.[facility]
--- OUTSIDE RECORDS SUMMARY | 2024-12-17 10:39 | XMS_ITS | Encounter Summary ---
Author Organization [facility] Address [address] [place] [address] [place] [address] Phone Care Team Providers Care Seat Cover Cutter Name Role Phone Danay Roman OIL HEATER INSTALLER Unavailable [phone] Abi Mcfarland AMMONIA BOX TENDER Unavailable [phone] Gerson Mitchell MD Primary Care Provider [phone] Gerson Mitchell MD Unavailable [phone] Rickie Turner MD Unavailable [phone] Encounter Details Date Type Department Care Team (Late st Contact Info) Description 11/10/2023 Procedure Pass [facility] Echocardiography [address] [place] [address] Social History Tobacco Use Types Packs/Day Years [...] Description 07/26/2025 11:20 AM EDT Office Visit [facility] [address] [place] [address] 3rd Floor, [address] [place] [address] Xavier Lee MD [address] [place] [address] [email or web address] documented as of this encounter Visit Diagnoses Not on filedocumented in this encounter Additional Health Concerns Assessment Noted Time PHQ-2 Depression Total Score: 0 03/22/20 21 8:28 AM EST documented as of this encounter Care Teams Seat Cover Cutter Relationship Specialty Start Date End Date Gerson Mitchell MD 14 [facility] [address] [place] [address] PCP - General Internal Medicine 02/26/17 Danay Roman NP 14 [facility] [address] [place] [address] Historical LMR Provider 02/02/17 Abi Mcfarland, YAMILA 14 [facility] [address] [place] [address] Historical LMR Provider 02/02/17 Gerson Mitchell MD [address] [place] [address] [address] [place] [address] [email or web address] Insurance Assigned Provider 07/20/23 Rickie Turner MD [address] [place] [address], [address] [address] [email or web address] Cardiology 09/23/23 documented as of this encounter Additional Source Comments The information contained in this document represents components of the legal health record. It is not the complete legal health record.[facility]
--- OUTSIDE RECORDS SUMMARY | 2024-12-17 10:39 | XMS_ITS | Encounter Summary ---
Author Organization [facility] Address [address] [place] [address] Phone Care Team Providers Care Oil And Gas Recruiter Name Role Phone Gerson Mitchell MD Unavailable [phone] Gerson Mitchell MD Unavailable [phone] Danay Roman FOOT DOCTOR Unavailable [phone] Abi Mcfarland LIBRARY CLERICAL ASSISTANT Unavailable [phone] Rhett Willams MD Unavailable Unavailable Gerson Mitchell MD Primary Care Provider [phone] Gerson Mitchell MD Unavailable [phone] Gerson Mitchell MD Unavailable [phone] Rickie Turner MD Unavailable [phone] Encounter Details Date Type Department Care Team (Late st Contact Info) Description 07/27/2018 Procedure Pass [facility], [address] [address] Social History Tobacco Use Types Packs/Day Years [...] Description 07/26/2025 11:20 AM EDT Office Visit [facility] [address] [place] [address] 3rd Floor, [address] [place] [address] Xavier Lee MD 22 [facility], [address] [place] [address] [email or web address] documented as of this encounter Visit Diagnoses Not on filedocumented in this encounter Care Teams Oil And Gas Recruiter Relationship Specialty Start Date End Date Gerson Mitchell MD [address] [place] [address] [email or web address] PCP - General Internal Medicine 02/26/17 Gerson Mitchell MD [address] [place] [address] [email or web address] Insurance Assigned Provider 01/19/17 10/25/18 Gerson Mitchell MD [address] [place] [address] [email or web address] Historical LMR Provider 02/02/17 1 Danay Roman, FOOT DOCTOR [address] [place] [address] [email or web address] Historical LMR Provider 02/02/17 Abi Mcfarland, LIBRARY CLERICAL ASSISTANT [address] [place] [address] [email or web address] Historical LMR Provider 02/02/17 Rhett Willams MD Historical LMR Provider 02/02/17 10/09/20 Gerson Mitchell MD [address] [place] [address] [email or web address] Insurance Assigned Provider 07/22/19 04/23/20 Gerson Mitchell MD [address] [place] [address] [address] [place] [address] [email or web address] Insurance Assigned Provider 07/20/23 Rickie Turner MD [address] [place] [address], [address] [address] [email or web address] Cardiology 09/23/23 documented as of this encounter Additional Source Comments The information contained in this document represents components of the legal health record. It is not the complete legal health record.[facility]
--- OUTSIDE RECORDS SUMMARY | 2024-12-17 10:39 | XMS_ITS | Encounter Summary ---
Author Organization [facility] Address [address] [place] [address] Phone Care Team Providers Care Development Consultant Name Role Phone Gerson Mitchell MD Unavailable [phone] Gerson Mitchell MD Unavailable [phone] Danay Roman NP Unavailable [phone] Abi Mcfarland ORNAMENTAL IRON WORKER Unavailable [phone] Rhett Willams MD Unavailable Unavailable Gerson Mitchell MD Primary Care Provider [phone] Gerson Mitchell MD Unavailable [phone] Gerson Mitchell MD Unavailable [phone] Rickie Turner MD Unavailable [phone] Encounter Details Date Type Department Care Team (Late st Contact Info) Description 12/05/2017 Ancillary Orders [facility] [place] [facility] 14 [facility] [address] [place], [place] [phone] Danay Roman, YONG 14 [facility] [address] [place], [place] [phone] [email or web address] Pain of left hip joint Social [...] Description 07/26/2025 11:20 AM EDT Office Visit [facility] 22 [facility] 3rd Floor, [address] [place] [address] Xavier Lee MD 22 [facility], [address] [place] [address] [email or web address] documented as of this encounter Results * XR KNEE 4 OR MORE VIEWS (LEFT) (12/05/2017 12:18 PM EDT) Anatomical Region Laterality Modality Knee Left Radiographic Jennifer ging 12/05/2017 12:3 4 PM EDT Impressions 12/05/2017 12:36 PM EDT Very mild degenerative changes. No other explanation for pain. POS - [id number] Narrative 12/05/2017 12:36 PM EDT HISTORY: Pain after fall. COMPARISON: None. FINDINGS: Five views. Joint spaces well-maintained. Minimal spurring. No significant arthritic changes. No fractures or dislocations. No suspicious lytic or blastic lesions within the bones. Very mild enthesopathy at the insertion of the quadriceps tendon on the patella. No evidence of joint effusion. Procedure Note Joel Dillon MD - 12/05/2017 HISTORY: Pain after fall. COMPARISON: None. FINDINGS: Five views. Joint spaces well-maintained. Minimal spurring. No significant arthriticchanges. No fractures or dislocations. No suspicious lytic or blasticlesions within the bones. Very mild enthesopathy at the insertion of thequadriceps tendon on the patella. No evidence of joint effusion. IMPRESSION: Very mild degenerative changes. No other explanation for pain. POS - [id number] us Gerson Mitchell MD IMG XR LOWER EXTREMITY Final Result documented in this encounter Visit Diagnoses Diagnosis Pain of left hip joint Pain of left hip joint documented in this encounter Care Teams Development Consultant Relationship Specialty Start Date End Date Gerson Mitchell MD [address] [place] [address] [email or web address] PCP - General Internal Medicine 02/26/17 Gerson Mitchell MD [address] [place] [address] [email or web address] Insurance Assigned Provider 01/19/17 10/25/18 Gerson Mitchell MD [address] [place] [address] [email or web address] Historical LMR Provider 02/02/17 1 Danay Roman NP [address] [place] [address] [email or web address] Historical LMR Provider 02/02/17 Abi Mcfarland CNP [address] [place] [address] [email or web address] Historical LMR Provider 02/02/17 Rhett Willams MD Historical LMR Provider 02/02/17 10/09/20 Gerson Mitchell MD [address] [place] [address] [email or web address] Insurance Assigned Provider 07/22/19 04/23/20 Gerson Mitchell MD [address] [place] [address] [email or web address] Insurance Assigned Provider 07/20/23 Rickie Turner MD [address] [place] [address], [address] [address] [email or web address] Cardiology 09/23/23 documented as of this encounter Additional Source Comments The information contained in this document represents components of the legal health record. It is not the complete legal health record.[facility]
--- OUTSIDE RECORDS SUMMARY | 2024-12-17 10:39 | XMS_ITS | Encounter Summary ---
Author Organization [facility] Address [address] [place] [address] [place] [address] Phone Care Team Providers Care Centrifugal Operator Name Role Phone Danay Roman ABORIGINAL CEREMONIAL CELEBRANT Unavailable [phone] Abi Mcfarland [facility] Unavailable [phone] Gerson Mitchell MD Primary Care Provider [phone] Gerson Mitchell MD Unavailable [phone] Rickie Turner MD Unavailable [phone] Encounter Details Date Type Department Care Team (Late st Contact Info) Description 11/10/[address] [facility] Echocardiography [address] [place] [address] Social History Tobacco Use Types Packs/Day Years [...] Description 07/26/2025 11:20 AM EDT Office Visit [facility] [address] [place] [address] 3rd Floor, [address] [place] [address] Xavier Lee MD [address] [place] [address] [email or web address] documented as of this encounter Visit Diagnoses Not on filedocumented in this encounter Additional Health Concerns Assessment Noted Time PHQ-2 Depression Total Score: 0 03/22/20 21 8:28 AM EST documented as of this encounter Care Teams Centrifugal Operator Relationship Specialty Start Date End Date Gerson Mitchell MD 14 [facility] [address] [place] [address] PCP - General Internal Medicine 02/26/17 Danay Roman NP 14 [facility] [address] [place] [address] Historical LMR Provider 02/02/17 Abi Mcfarland, YAMILA 14 [facility] [address] [place] [address] Historical LMR Provider 02/02/17 Gerson Mitchell MD [address] [place] [address] [address] [place] [address] [email or web address] Insurance Assigned Provider 07/20/23 Rickie Turner MD [address] [place] [address], [address] [address] [email or web address] Cardiology 09/23/23 documented as of this encounter Additional Source Comments The information contained in this document represents components of the legal health record. It is not the complete legal health record.[facility]
--- OUTSIDE RECORDS SUMMARY | 2024-12-17 10:39 | XMS_ITS | Encounter Summary ---
Author Organization [facility] Address [address] [place] [address] [place] [address] Phone Care Team Providers Care Awning Frame Maker Name Role Phone Danay Roman WILDLIFE TECHNICIAN Unavailable [phone] Abi Mcfarland BICYCLE SERVICE TECHNICIAN Unavailable [phone] Gerson Mitchell MD Primary Care Provider [phone] Gerson Mitchell MD Unavailable [phone] Rickie Turner MD Unavailable [phone] Encounter Details Date Type Department Care Team (Late st Contact Info) Description 11/05/2023 Transcribe Orders [facility] EKG [address] [place] [address] Gerson Mitchell MD [address] [place] [address] [address] [place] [address] [email or web address] Social History Tobacco Use Types Packs/Day Years [...] Description 07/26/2025 11:20 AM EDT Office Visit [facility] [address] [place] [address] 3rd Floor, [address] [place] [address] Xavier Lee MD 22 [facility], [address] [place], [place] [phone] [email or web address] documented as of this encounter Procedures Procedure Name Priority Date/Time Associated Diagnosis Comments ECG 12-LEAD Routine 11/05/2023 2:07 PM EDT documented in this encounter Results * ECG 12-LEAD (11/05/2023 2:07 PM EDT) Ventricular Rate EKG/MIN 105 BPM [facility] Atrial Rate 105 BPM [facility] MS Interval 148 ms [facility] QRS Duration 130 ms [facility] QT Interval 370 ms [facility] QTC Interval 489 ms [facility] P [place] 49 degrees [facility] R Wave [place] -51 degrees [facility] T Wave [place] 52 degrees [facility] 11/05/2023 2:07 PM EDT Narrative [facility] - 12/13/2023 4:15 PM EDT Sinus tachycardia Possible Left atrial enlargement Right bundle branch block Left anterior fascicular block Bifascicular block Minimal voltage criteria for LVH, may be normal variant ( R in aVL ) Abnormal ECG No previous ECGs available Electronically signed by Not interpreted by Cardiology, Cardiology ([id number]), non linear editor Jermaine Quispe ([id number]) on 12/13/2023 4:15:34 PM us Alex Cook MD ECG ORDERABLES Final Result [facility] documented in this encounter Visit Diagnoses Not on filedocumented in this encounter Additional Health Concerns Assessment Noted Time PHQ-2 Depression Total Score: 0 03/22/20 21 8:28 AM EST documented as of this encounter Care Teams Awning Frame Maker Relationship Specialty Start Date End Date Gerson Mitchell MD [address] [place] [address] PCP - General Internal Medicine 02/26/17 Danay Roman, YONG [address] [place] [address] Historical LMR Provider 02/02/17 Abi Mcfarland CNP [address] [place] [address] Historical LMR Provider 02/02/17 Gerson Mitchell MD [address] [place] [address] Insurance Assigned Provider 07/20/23 Rickie Turner MD [address] [place] [address] Cardiology 09/23/23 documented as of this encounter Additional Source Comments The information contained in this document represents components of the legal health record. It is not the complete legal health record.[facility]
--- OUTSIDE RECORDS SUMMARY | 2024-12-17 10:39 | XMS_ITS | Encounter Summary ---
Author Organization [facility], Address [address] [place] [address] Phone Care Team Providers Care Pattern Puncher Name Role Phone Gerson Mitchell MD Primary Care Provider [phone] Encounter Details Date Type Department Care Team (Late st Contact Info) Description 09/02/2024 Documentation Only [facility], [address] [place] [address] Rosemarie Leonardo [place] [address] [place] [phone] Social History Tobacco Use Types Packs/Day Years Used Date Smoking Tobacco: Never Assessed Sex and Gender Information Value Date Recorded Sex Assigned at Not on file Legal Sex Male 3:44 PM EDT Gender Identity Not on file Sexual Orientation Not on file documented as of this encounter Plan of Treatment Not on file documented as of this encounter Visit Diagnoses Not on filedocumented in this encounter Care Teams Pattern Puncher Relationship Specialty Start Date End Date Gerson Mitchell MD [address] [place] [address] [address] [place] [address] PCP - General Internal Medicine 09/02/24 documented as of this encounter
== END 2024-12-17 09:45 | disposition home or self-care (01) ==
LOC: HO.US 09:44
PROVIDERS: PCP Internal Medicine; Visit Provider Urology
DX: R39.12 Poor urinary stream (principal); N40.1 Benign prostatic hyperplasia with lower urinary tract symptoms
CPT/HCPCS: 76857

== ENCOUNTER → 2024-12-17 09:47 | Outpatient (BNV) | payer MEDICARE, SELFPAY | PROVIDERS: PCP Internal Medicine; Visit Provider Radiology Diagnostic Radiology | DX: N40.1 Benign prostatic hyperplasia with lower urinary tract symptoms (principal) | CPT/HCPCS: 76857 ==

== ENCOUNTER 2024-12-24 09:05 | Outpatient (AMB) | payer MEDICARE, SELFPAY ==
--- NOTE | 2024-12-24 09:09 | A.OFFVIS_ITS ---
Intake Visit Reasons: 5w/MRI/US Intake Note: Patient is present for: 5wk/MRI/US Urology Rx: TAMSULOSIN Blood Thinners:ASPIRIN MRI done: 12/02/24 US done: 12/17/24 today's PVR: 0mls Certified Pesticide Applicator Required: No Accompanied by: Spouse Allergies No Known Allergies Allergy (Verified 12/24/24 09:10) HPI Comments Details: Ne is a pleasant male. He is a patient of . He is seen for the following urologic conditions - lower urinary tract symptoms - complex renal cyst Follow-up of imaging Kidney recommendation surveillance Discussed bladder ultrasound 130 g prostate Well within acceptable limits for performing laser enucleation Would start 5 AR for 3 months prior Discussed timing given April through July is spent in [place] Prescription for dutasteride Five month follow-up tele Complex renal cyst Detected on ultrasound renal performed for Nephrology Simple cyst left side 7 cm Question complex renal cyst on left side Baseline CKD Renal MRI - 12/07 2.0 cm exophytic complex cystic lesion, lower pole left kidney. 7.7 cm thin septated cystic lesion, left kidney. No hydronephrosis Lower urinary tract symptoms Elevated PSA he reports as 11 Was looking at robotic simple prostatectomy Discussed pros and cons with high rates of incontinence given his age Bladder ultrasound - The median lobe of the prostate protrudes into the bladder base. Prostate volume is estimated at 131 mL. [facility] Surgical History Heart valve replaced (~08/2023) Family History Father Hypertension Kidney disease Review of Systems Const Denies chills and Denies fever(s) Card Reports no additional complaints and Denies syncope Resp Denies cough GI Denies abdominal pain and Denies heartburn Reports as per HPI and Denies change in libido Neuro Denies syncope Psych Denies change in libido Endo Denies change in libido Physical Exam Const General: cooperative, healthy appearing, comfortable and no acute distress Orientation/consciousness: patient oriented x3 HEENT Face and sinus: Yes normal facial exam Mouth: moist mucous membranes Neck Neck: Yes normal visual inspection, Yes full ROM and Yes trachea midline Chest Chest palpation & inspection: normal inspection of the chest Resp Effort & Inspection: normal respiratory effort, able to speak in complete sentences and no respiratory distress GI Inspection: Yes normal to inspection Back/Spine/Pelvis Cervical Spine: normal cervical lordosis Thoracic/Lumbar Spine: thoracic and lumbar spine normal to inspection Skin General skin exam: no rashes or lesions noted Neuro General: patient oriented x3, gait normal, tone normal and moves all extremities Extrem General: Yes normal to inspection and Yes capillary refill normal Office Procedures Post Void Residual Post Residual Void Post Void Residual (PVR): 0 10064-Sjra Void Residual by ultrasound Results AMB Urinalysis, Automated UA Leukoctes 0 Sunita/uL Last Edit by NICOLE Hogan on 12/24/24 09:25 UA Nitrite Negative Last Edit by NICOLE Hogan on 12/24/24 09:25 UA Urobilinogen 0.2 mg/dL Last Edit by NICOLE Hogan on 12/24/24 09:2 5 UA Protein 30 mg/dL Last Edit by NICOLE Hogan on 12/24/24 09:25 UA pH 6.0 Last Edit by NICOLE Hogan on 12/24/24 09:25 UA Blood 0 Ortega/uL Last Edit by NICOLE Hogan on 12/24/24 09:25 UA Specific [place] 1.015 Last Edit by NICOLE Hogan on 12/24/24 09: 25 UA Ketone Negative Last Edit by NICOLE Hogan on 12/24/24 09:25 UA Bilirubin 0 mg/dL Last Edit by NICOLE Hogan on 12/24/24 09:25 UA Glucose 0 mg/dL Last Edit by NICOLE Hogan on 12/24/24 09:25 Assessment & Plan Assessment & Plan (1) Lower urinary tract symptoms due to benign prostatic hyperplasia: Code(s): N40.1 - Benign prostatic hyperplasia with lower urinary tract symptoms Category: Medical Plan Five month follow-up tele Orders: Orders AMB Post Void Residual by ultrasound Today N40.1 - Benign prostatic hyperplasia with lower urinary tract symptoms AMB Urinalysis Automated Today Z13.9 - Encounter for screening, unspecified Medications: New dutasteride 0.5 mg PO DAILY 90 caps 1RF 90 days N13.8 - Other obstructive and reflux uropathy, N40.1 - Benign prostatic hyperplasia with lower urinary tract symptoms Patient Instructions: This note is constructed using voice recognition software. While every effort has been made to ensure accuracy operative supervisor errors may have been included. Imaging studies, laboratory and physical exam results were discussed and reviewed in detail. No major barriers to patient understanding were identified. An opportunity to ask questions regarding the treatment plan was provided. All questions were answered. The patient expressed understanding and agreement with the above treatment plan. The patient is aware they should contact our office by phone for worsening of their current condition or the appearance of new urologic symptoms. Compliance is encouraged with any medications and followup testing that is ordered. It is a privilege to participate in the urologic care of your patient. If you have any questions or concerns regarding treatment for the above conditions, or other urologic issues, please do not hesitate to contact me. The office telephone contact is [phone]. Sincerely, Dr Jose Amador MD, [facility] - Urology Compassionate Specialist Care for the Genitourinary System Coding Level of Care Code Est Pt Level 4 (43726) Complex EM visit Add On G2211 Diagnoses Lower urinary tract symptoms due to benign prostatic hyperplasia N40.1 CPT Codes Post Residual Void - PVR CPT Code: 70526-Kcuv Void Residual by ultrasound ([id number])
--- OUTSIDE RECORDS SUMMARY | 2024-12-24 10:23 | XMS_ITS | Encounter Summary ---
Author Organization [facility] Address [address] [employer] [facility] [address] [place] [address] Phone Care Team Providers Care Director Of Teaching And Learning Name Role Phone Danay Roman TICK INSPECTOR Unavailable [phone] Abi Mcfarland PRIVACY OFFICER Unavailable + [phone] Gerson Mitchell MD Primary Care Provider [phone] Gerson Mitchell MD Unavailable [phone] Rickie Turner MD Unavailable [phone] Encounter Details Date Type Department Care Team (Late st Contact Info) Description 02/27/2024 [facility] [address] [place] [address] Social History Tobacco Use Types Packs/Day Years [...] Description 07/26/2025 11:20 AM EDT Office Visit [facility] [address] [place] [address] 3rd [facility], [address] [place] [address] Xavier Lee MD [address] [place] [address] [email or web address] documented as of this encounter Visit Diagnoses Not on filedocumented in this encounter Additional Health Concerns Assessment Noted Time PHQ-9 Depression Total Score: 4 02/26/20 24 10:35 AM EST PHQ-2 Depression Total Score: 0 03/22/20 21 8:28 AM EST documented as of this encounter Care Teams Director Of Teaching And Learning Relationship Specialty Start Date End Date Gerson Mitchell MD [address] [place] [address] [place] [address] [email or web address] PCP - General Internal Medicine 02/26/17 Danay Roman NP [address] [place] [address] [place] [address] [email or web address] Historical LMR Provider 02/02/17 Abi Mcfarland CNP [address] [place] [address] [address] [place] [address] [email or web address] Historical LMR Provider 02/02/17 Gerson Mitchell MD [address] [place] [address] [address] [place] [address] [email or web address] Insurance Assigned Provider 07/20/23 Rickie Turner MD [address] [place] [address] [email or web address] Cardiology 09/23/23 documented as of this encounter Additional Source Comments The information contained in this document represents components of the legal health record. It is not the complete legal health record.[facility]
--- OUTSIDE RECORDS SUMMARY | 2024-12-24 10:23 | XMS_ITS | Encounter Summary ---
Author Organization [facility] Address [address] [place] [address] [place] [address] Phone Care Team Providers Care Layaway Clerk Name Role Phone Danay Roman AUDIO VISUAL AIDE Unavailable [phone] Abi Mcfarland ELECTRIC BATH ATTENDANT Unavailable [phone] Gerson Mitchell MD Primary Care Provider + [phone] Gerson Mitchell MD Unavailable [phone] Rickie Turner MD Unavailable [phone] Encounter Details Date Type Department Care Team (Late st Contact Info) Description 11/05/2023 Transcribe Orders [facility] EKG 70 [place] [address] Gerson Mitchell MD [address] [place] [address] [address] [place] [address] [email or web address] Social History Tobacco Use Types Packs/Day Years [...] Description 07/26/2025 11:20 AM EDT Office Visit [facility] [address] [place] [address] 3rd Floor, [address] [place] [address] Xavier Lee MD 22 [facility], [address] [place], [place] [address] [email or web address] documented as of this encounter Procedures Procedure Name Priority Date/Time Associated Diagnosis Comments ECG 12-LEAD Routine 11/05/2023 2:07 PM EDT documented in this encounter Results * ECG 12-LEAD (11/05/2023 2:07 PM EDT) Ventricular Rate EKG/MIN 105 BPM [facility] Atrial Rate 105 BPM [facility] VT Interval 148 ms [facility] QRS Duration 130 ms [facility] QT Interval 370 ms [facility] QTC Interval 489 ms [facility] P [place] 49 degrees [facility] R Wave [place] -51 degrees [facility] T Wave [place] 52 degrees [facility] 11/05/2023 2:07 PM EDT Narrative [facility] - 12/13/2023 4:15 PM EDT Sinus tachycardia Possible Left atrial enlargement Right bundle branch block Left anterior fascicular block Bifascicular block Minimal voltage criteria for LVH, may be normal variant ( R in aVL ) Abnormal ECG No previous ECGs available Electronically signed by Not interpreted by Cardiology, Cardiology ([id number]), managing editor Jermaine Quispe ([id number]) on 12/13/2023 4:15:34 PM us Alex Cook MD ECG ORDERABLES Final Result [facility] documented in this encounter Visit Diagnoses Not on filedocumented in this encounter Additional Health Concerns Assessment Noted Time PHQ-2 Depression Total Score: 0 03/22/20 21 8:28 AM EST documented as of this encounter Care Teams Layaway Clerk Relationship Specialty Start Date End Date Gerson Mitchell MD [address] [place] [address] PCP - General Internal Medicine 02/26/17 Danay Roman, YONG [address] [place] [address] Historical LMR Provider 02/02/17 Abi Mcfarland CNP [address] [place] [address] Historical LMR Provider 02/02/17 Gerson Mitchell MD [address] [place] [address] Insurance Assigned Provider 07/20/23 Rickie Turner MD [address] [place] [address] Cardiology 09/23/23 documented as of this encounter Additional Source Comments The information contained in this document represents components of the legal health record. It is not the complete legal health record.[facility]
--- OUTSIDE RECORDS SUMMARY | 2024-12-24 10:23 | XMS_ITS | Encounter Summary ---
Author Organization [facility] Address [address] [place] [address] Phone Care Team Providers Care Overage Shortage And Damage Clerk Name Role Phone Gerson Mitchell MD Unavailable [phone] Gerson Mitchell MD Unavailable [phone] Danay Roman QUANTITATIVE ANALYST DEVELOPER Unavailable +[phone] Abi Mcfarland ASPHALT MACHINE OPERATOR Unavailable [phone] Rhett Willams MD Unavailable Unavailable Gerson Mitchell MD Primary Care Provider [phone] Gerson Mitchell MD Unavailable [phone] Gerson Mitchell MD Unavailable [phone] Rickie Turner MD Unavailable [phone] Encounter Details Date Type Department Care Team (Late st Contact Info) Description 07/22/2018 Procedure Pass [facility], [address] [address] Social History Tobacco Use Types Packs/Day Years [...] 07/26/2025 11:20 AM EDT Office Visit [facility] [address] [place] [address] 3rd Floor, [address] [place] [address] Xavier Lee MD 22 [facility], [address] [place] [address] documented as of this encounter Visit Diagnoses Not on filedocumented in this encounter Care Teams Overage Shortage And Damage Clerk Relationship Specialty Start Date End Date Gerson Mitchell MD [address] [place] [address] PCP - General Internal Medicine 02/26/17 Gerson Mitchell MD [address] [place] [address] Insurance Assigned Provider 01/19/17 10/25/18 Gerson Mitchell MD [address] [place] [address] Historical LMR Provider 02/02/17 1 Danay Roman NP [address] [place] [address] Historical LMR Provider 02/02/17 Abi Mcfarland CNP [address] [place] [address] [email or web address] Historical LMR Provider 02/02/17 Rhett [place] MD Historical LMR Provider 02/02/17 10/09/20 Gerson Mitchell MD [address] [place] [address] [address] [place] [address] [email or web address] Insurance Assigned Provider 07/22/19 04/23/20 Gerson Mitchell MD 14 [facility] [address] [place] [address] [email or web address] Insurance Assigned Provider 07/20/23 Rickie Turner MD [address] [place] [address] [email or web address] Cardiology 09/23/23 documented as of this encounter Additional Source Comments The information contained in this document represents components of the legal health record. It is not the complete legal health record.[facility]
--- OUTSIDE RECORDS SUMMARY | 2024-12-24 10:23 | XMS_ITS | Encounter Summary ---
Author Organization [facility], Address [address] [place] [address] Phone Care Team Providers Care Telephoto Engineer Name Role Phone Gerson Mitchell MD Primary Care Provider [phone] Encounter Details Date Type Department Care Team (Late st Contact Info) Description 09/02/2024 Documentation Only [facility], [address] [place] [address] [address] Leon[address] [place] [phone] Social History Tobacco Use Types Packs/Day Years [...] on filedocumented in this encounter Care Teams Telephoto Engineer Relationship Specialty Start Date End Date Gerson Mitchell MD [address] [place] [address] [address] [place] [address] PCP - General Internal Medicine 09/02/24 documented as of this encounter
--- OUTSIDE RECORDS SUMMARY | 2024-12-24 10:23 | XMS_ITS | Encounter Summary ---
Author Organization [facility] Address [address] [employer] [facility] [address] [place] [address] Phone Care Team Providers Care Public Administration Teacher Name Role Phone Danay Roman CARRIER BLOWER Unavailable [phone] Abi Mcfarland HOMICIDE SQUAD CAPTAIN Unavailable + [phone] Gerson Mitchell MD Primary Care Provider [phone] Gerson Mitchell MD Unavailable [phone] Rickie Turner MD Unavailable [phone] Encounter Details Date Type Department Care Team (Late st Contact Info) Description 11/05/2023 Procedure Pass [facility] 70 [place] [address] Social History Tobacco Use Types Packs/Day Years [...] Description 07/26/2025 11:20 AM EDT Office Visit [facility] 3rd Floor, [address] [place] [address] Xavier Lee MD 22 [facility], [address] [place] [address] [email or web address] documented as of this encounter Visit Diagnoses Not on filedocumented in this encounter Additional Health Concerns Assessment Noted Time PHQ-2 Depression Total Score: 0 03/22/20 8:28 AM EST documented as of this encounter Care Teams Public Administration Teacher Relationship Specialty Start Date End Date Gerson Mitchell MD [address] [place] [address] [place] [address] PCP - General Internal Medicine 02/26/17 Danay Roman NP [address] [place] [address] [place] [address] Historical LMR Provider 02/02/17 Abi Mcfarland, YAMILA [address] [place] [address] [place] [address] Historical LMR Provider 02/02/17 Gerson Mitchell MD [address] [place] [address] [place] [address] Insurance Assigned Provider 07/20/23 Rickie Turner MD [address] [place] [address], [address] [place] [address] (work) [email or web address] Cardiology 09/23/23 documented as of this encounter Additional Source Comments The information contained in this document represents components of the legal health record. It is not the complete legal health record.[facility]
--- OUTSIDE RECORDS SUMMARY | 2024-12-24 10:23 | XMS_ITS | Encounter Summary ---
Author Organization [facility] Address [address] [place] [address] Phone Care Team Providers Care Stem Cleaning Machine Feeder Name Role Phone Danay Roman SALES PROMOTER Unavailable [phone] Abi Mcfarland SHEAR TENDER Unavailable + [phone] Gerson Mitchell MD Primary Care Provider [phone] Gerson Mitchell MD Unavailable [phone] Rickie Turner MD Unavailable [phone] Reason for Referral * MRI/CAT Scan - Closed Specialty Diagnoses / Procedures Referred By Sher t Referred To Contact Radiology Procedures Outside [facility] Abdomen [facility] [address] [place] [address] Phone: tel: fax: Referral ID Status Reason Start Date Expiration Date Visits Re quested Visits Authorized [id number] Closed 12/03/2024 1 1 Encounter Details Date Type Department Care Team (Late st Contact Info) Description 12/03/2024 Orders Only [facility] Internal Medicine [address] [place] [address] Venus Perez MD [address] [place] [address] Social History Tobacco Use Types Packs/Day [...] Description 07/26/2025 11:20 AM EDT Office Visit [facility] [address] [place] [address] 3rd Floor, [address] [place] [address] Xavier Lee MD [address] [place] [address] documented as of this encounter Procedures Procedure [...] documented as of this encounter Care Teams Stem Cleaning Machine Feeder Relationship Specialty Start Date End Date Gerson Mitchell MD [address] [place] [address] PCP - General Internal Medicine 02/26/17 Danay Roman NP [address] [place] [address] Historical LMR Provider 02/02/17 Abi Mcfarland CNP [address] [place] [address] Historical LMR Provider 02/02/17 Gerson Mitchell MD [address] [place] [address] Insurance Assigned Provider 07/20/23 Rickie Turner MD [address] [place] [address], [address] [address] Cardiology 09/23/23 documented as of this encounter Additional Source Comments The information contained in this document represents components of the legal health record. It is not the complete legal health record.[facility]
--- OUTSIDE RECORDS SUMMARY | 2024-12-24 10:23 | XMS_ITS | Encounter Summary ---
Author Organization [facility] Address [address] [email or web address] [facility] [address] [place] [address] Phone Care Team Providers Care Studio Technician Video Operator Name Role Phone Danay Roman BUNDLE COLLECTOR Unavailable [phone] Abi Mcfarland HYDROGEOLOGIST Unavailable [phone] Gerson Mitchell MD Primary Care Provider [phone] Gerson Mitchell MD Unavailable [phone] Rickie Turner MD Unavailable [phone] Encounter Details Date Type Department Care Team (Late st Contact Info) Description 08/01/2023 Procedure Pass [facility], Yos[place]any 2 [address] [facility], 2nd Floor, [address] [place] [address] Social History Tobacco Use Types Packs/Day Years [...] Description 07/26/2025 11:20 AM EDT Office Visit [facility] [address] [place] [address] 3rd Floor, [address] [place] [address] Xavier Lee MD [address] [place] [address], [address] [address] [email or web address] documented as of this encounter Visit Diagnoses Not on filedocumented in this encounter Additional Health Concerns Assessment Noted Time PHQ-2 Depression Total Score: 0 03/22/20 21 8:28 AM EST documented as of this encounter Care Teams Studio Technician Video Operator Relationship Specialty Start Date End Date Gerson Mitchell MD [address] [place] [address] PCP - General Internal Medicine 02/26/17 Danay Roman NP [address] [place] [address] Historical LMR Provider 02/02/17 Abi Mcfarland CNP [address] [place] [address] Historical LMR Provider 02/02/17 Gerson Mitchell MD [address] [place] [address] Insurance Assigned Provider 07/20/23 Rickie Turner MD [address] [place] [address], [address] [address] [email or web address] Cardiology 09/23/23 documented as of this encounter Additional Source Comments The information contained in this document represents components of the legal health record. It is not the complete legal health record.[facility]
--- OUTSIDE RECORDS SUMMARY | 2024-12-24 10:23 | XMS_ITS | Encounter Summary ---
Author Organization [facility] Address [facility] [facility] [address] [place] [address] Phone Care Team Providers Care Pediatric Nurse Name Role Phone Danay Roman CNC MANUFACTURING ENGINEER Unavailable [phone] Abi Mcfarland RUG DYER HELPER Unavailable + [phone] Gerson Mitchell MD Primary Care Provider [phone] Gerson Mitchell MD Unavailable [phone] Rickie Turner MD Unavailable [phone] Encounter Details Date Type Department Care Team (Late st Contact Info) Description 11/14/2023 Procedure Pass [facility] Cardiac C.O.D. Clerk [address] [place] [address] Social History Tobacco Use Types Packs/Day Years [...] 9:00 PM EDT Tracey Stanley RN * Lander Suicide Severity Rating Scale (Screener/Recent Self-Report) Question [...] Description 07/26/2025 11:20 AM EDT Office Visit [facility] [address] [place] [address] 3rd Floor, [address] [place] [address] Xavier Lee MD [address] [place] [address], [address] [address] [email or web address] documented as of this encounter Visit Diagnoses Not on filedocumented in this encounter Additional Health Concerns Assessment Noted Time PHQ-2 Depression Total Score: 0 03/22/20 21 8:28 AM EST documented as of this encounter Care Teams Pediatric Nurse Relationship Specialty Start Date End Date Gerson Mitchell MD [address] [place] [address] [place] [address] [email or web address] PCP - General Internal Medicine 02/26/17 Danay Roman, CNC MANUFACTURING ENGINEER [address] [place] [address] [place] [address] [email or web address] Historical LMR Provider 02/02/17 Abi Mcfarland, YAMILA [address] [place] [address] [place] [address] [email or web address] Historical LMR Provider 02/02/17 Gerson Mitchell MD [address] [place] [address] [place] [address] [email or web address] Insurance Assigned Provider 07/20/23 Rickie Turner MD [address] [place] [address], [address] [address] [email or web address] Cardiology 09/23/23 documented as of this encounter Additional Source Comments The information contained in this document represents components of the legal health record. It is not the complete legal health record.[facility]
--- OUTSIDE RECORDS SUMMARY | 2024-12-24 10:23 | XMS_ITS | Encounter Summary ---
Author Organization [facility] Address [address] [employer] [facility] [address] [place] [address] Phone Care Team Providers Care Outpatient Facility Physical Therapist Name Role Phone Danay Roman PILLOWCASE MAKER Unavailable [phone] Abi Mcfarland BULLET LUBRICATING MACHINE OPERATOR Unavailable + [phone] Gerson Mitchell MD Primary Care Provider [phone] Gerson Mitchell MD Unavailable [phone] Rickie Turner MD Unavailable [phone] Encounter Details Date Type Department Care Team (Late st Contact Info) Description 09/23/2023 Procedure Pass [facility] Radiology [address] [place] [address] Social History Tobacco Use Types Packs/Day Years [...] Description 07/26/2025 11:20 AM EDT Office Visit [facility] 22 [facility] 3rd Floor, [address] [place] [address] Xavier Lee MD 22 [facility], [address] [place] [address] [email or web address] documented as of this encounter Visit Diagnoses Not on filedocumented in this encounter Additional Health Concerns Assessment Noted Time PHQ-2 Depression Total Score: 0 03/22/20 8:28 AM EST documented as of this encounter Care Teams Outpatient Facility Physical Therapist Relationship Specialty Start Date End Date Gerson Mitchell MD [address] [place] [address] [place] [address] PCP - General Internal Medicine 02/26/17 Danay Roman NP [address] [place] [address] [place] [address] Historical LMR Provider 02/02/17 Abi Mcfarland, YAMILA [address] [place] [address] [place] [address] Historical LMR Provider 02/02/17 Gerson Mitchell MD [address] [place] [address] [place] [address] Insurance Assigned Provider 07/20/23 Rickie Turner MD [address] [place] [address], [address] [place] [address] (work) [email or web address] Cardiology 09/23/23 documented as of this encounter Additional Source Comments The information contained in this document represents components of the legal health record. It is not the complete legal health record.[facility]
--- OUTSIDE RECORDS SUMMARY | 2024-12-24 10:23 | XMS_ITS | Encounter Summary ---
Author Organization [facility] Address [address] [employer] [facility] [address] [place] [address] Phone Care Team Providers Care Side Door Worker Name Role Phone Dnaay Roman MANAGER OF CHANGE Unavailable [phone] Abi Mcfarland DAIRY SPECIALIST Unavailable + [phone] Gerson Mitchell MD Primary Care Provider [phone] Gerson Mitchell MD Unavailable [phone] Rickie Turner MD Unavailable [phone] Encounter Details Date Type Department Care Team (Late st Contact Info) Description 09/23/2023 Procedure Pass [facility] Radiology 70 [place] [address] Social History Tobacco Use Types Packs/Day Years [...] Description 07/26/2025 11:20 AM EDT Office Visit [facility] [address] [facility] 3rd Floor, [address] [place] [address] Xavier Lee MD 22 [facility], [address] [place] [address] [email or web address] documented as of this encounter Visit Diagnoses Not on filedocumented in this encounter Additional Health Concerns Assessment Noted Time PHQ-2 Depression Total Score: 0 03/22/20 8:28 AM EST documented as of this encounter Care Teams Side Door Worker Relationship Specialty Start Date End Date Gerson Mitchell MD [address] [place] [address] [place] [address] PCP - General Internal Medicine 02/26/17 Danay Roman NP [address] [place] [address] [place] [address] Historical LMR Provider 02/02/17 Abi Mcfarland, YAMILA [address] [place] [address] [place] [address] Historical LMR Provider 02/02/17 Gerson Mitchell MD [address] [place] [address] [place] [address] Insurance Assigned Provider 07/20/23 Rickie Turner MD [address] [place] [address], [address] [place] [address] (work) [email or web address] Cardiology 09/23/23 documented as of this encounter Additional Source Comments The information contained in this document represents components of the legal health record. It is not the complete legal health record.[facility]
--- OUTSIDE RECORDS SUMMARY | 2024-12-24 10:23 | XMS_ITS | Encounter Summary ---
Author Organization [facility] Address [address] [place] [address] Phone Care Team Providers Care Bitumastic Applier Name Role Phone Gerson Mitchell MD Unavailable [phone] Gerson Mitchell MD Unavailable [phone] Danay Roman DOLL WIG MAKER Unavailable [phone] Abi Mcfarland CARBON SETTER Unavailable [phone] Rhett Willams MD Unavailable Unavailable Gerson Mitchell MD Primary Care Provider [phone] Gerson Mitchell MD Unavailable [phone] Gerson Mitchell MD Unavailable [phone] Rickie Turner MD Unavailable [phone] Encounter Details Date Type Department Care Team (Late st Contact Info) Description 07/27/2018 Procedure Pass [facility], [address] [address] Social History Tobacco Use Types Packs/Day Years [...] Description 07/26/2025 11:20 AM EDT Office Visit [facility] [address] [place] [address] 3rd Floor, [address] [place] [address] Xavier Lee MD [address] [facility], [address] [place] [address] [email or web address] documented as of this encounter Visit Diagnoses Not on filedocumented in this encounter Care Teams Bitumastic Applier Relationship Specialty Start Date End Date G[place] Mitchell MD [address] [place] [address] [email or web address] PCP - General Internal Medicine 02/26/17 G[place] Mitchell MD [address] [place] [address] [email or web address] Insurance Assigned Provider 01/19/17 10/25/18 [place] Mitchell MD [address] [place] [address] [email or web address] Historical LMR Provider 02/02/17 1 Danay Roman, DOLL WIG MAKER [address] [place] [address] [email or web address] Historical LMR Provider 02/02/17 Abi Mcfarland, CARBON SETTER [address] [place] [address] [email or web address] Historical LMR Provider 02/02/17 Rhett Willams MD Historical LMR Provider 02/02/17 10/09/20 [place] Mitchell MD [address] [place] [address] [email or web address] Insurance Assigned Provider 07/22/19 04/23/20 [place] Mitchell MD [address] [place] [address] [address] [place] [address] [email or web address] Insurance Assigned Provider 07/20/23 Rickie Turner MD [address] [place] [address], [address] [address] [email or web address] Cardiology 09/23/23 documented as of this encounter Additional Source Comments The information contained in this document represents components of the legal health record. It is not the complete legal health record.[facility]
--- OUTSIDE RECORDS SUMMARY | 2024-12-24 10:23 | XMS_ITS | Clinical Summary ---
Author Organization [facility] Address [address] [place] [address] Phone Care Team Providers Care End Maker Name Role Phone Danay Roman RISK CONTROL CONSULTANT Unavailable [phone] Abi Mcfarland VICE PRESIDENT OF TALENT ACQUISITION Unavailable [phone] G[place] Mitchell MD Primary Care Provider [phone] G[place] Mitchell MD Unavailable [phone] Rickie Turner MD Unavailable [phone] Allergies No known active allergies Medications GRAPE [...] urgency. Elevated PSA. Will place referral to [facility] urology for further evaluation; patient would be interested in PAE as treatment option for his BPH. Assessment & Plan (08/28/2017 2:19 PM EDT): Stable on Saw Export. F/u for any worsening urinary frequency or [...] Encounters Date Type Department Care Team Description 12/17/2024 Orders Only [facility] Internal Medicine [address] [address] ProviderVenus MD 12/03/2024 Orders Only [facility] Internal Medicine [address] [place] [address] ProviderVenus MD 11/19/2024 Orders Only [facility] Administrative [address] [place] [address] Uriel Perkins MD, PhD 11/18/2024 Plan of Care Documentation [facility] Cardiopulmonary Rehabilitation [address] [place] [address] 11/18/2024 Documentation [facility] Cardiopulmonary Rehabilitation [address] [place] [address] Zenia Hughes RN CR Discharge 11/13/2024 4:00 PM EDT Office Visit [facility] [address] [facility] 3rd Floor, [address] [place] [address] Esperanza Montoya DNP Essential hypertension (Primary Dx); Nonrheumatic aortic valve stenosis; Pure hypercholesterolem ia; Stenosis of carotid artery, unspecified laterality 11/07/2024 10:25 AM EDT - 11/07/2024 11:59 PM EDT Hospital Encounter [facility] Laboratory [address] [place] [address] Gerson Mitchell MD Discharge Disposition: Home or Self Care 11/06/2024 Orders Only [facility] INTERV RAD [address] [place] [address] Edgar Hunt MD Benign prostatic hyperplasia with lower urinary tract symptoms, symptom details unspecified (Primary Dx) 11/05/2024 Telephone [facility] Urology [address] [facility] ASB2-3 [place] [address] Brittaney Hassan 11/04/2024 10:45 AM EDT Office Visit [facility] Cardiopulmonary Rehabilitation [address] [place] [address] Rickie Turner MD S/P TAVR (transcatheter aortic valve replacement) (Primary Dx) 11/04/2024 Plan of Care Documentation [facility] Cardiopulmonary Rehabilitation [address] [place] [address] 11/04/2024 Orders Only [facility] [address] 3rd Floor, [address] [place] [address] Rickie Turner MD Essential hypertension 11/04/2024 Orders Only [facility] Medicine Virtual Department [address] [place] [address] Rickie Turner MD 10/28/2024 Orders Only [facility] Internal Medicine [address] [place] [address] [place] [address] ProviderVenus MD 10/27/2024 8:30 AM EDT Office Visit [facility] [address] 3rd Floor, [address] [place] [address] Esperanza Montoya DNP Essential hypertension (Primary Dx); Pure hypercholesterolem ia; Benign essential hypertension; Nonrheumatic aortic valve stenosis 10/14/2024 9:15 AM EDT Telemedicine - audio only [facility] [place] [facility] [address] [place] [address] Isabela Marlow PA-C DiStefano, Jessica, PA-C S/P TAVR (transcatheter aortic valve replacement) (Primary Dx) 10/09/2024 11:14 AM EDT - 10/09/2024 11:59 PM EDT Hospital Encounter [facility] Echo Lab [address] [place] [address] Felicitas Pastrana MD Discharge Disposition: Home or Self Care 10/07/2024 10:45 AM EDT Office Visit [facility] Cardiopulmonary Rehabilitation [address] [place] [address] Rickie Turner MD S/P TAVR (transcatheter aortic valve replacement) (Primary Dx) 10/07/2024 Plan of Care Documentation [facility] Cardiopulmonary Rehabilitation [address] [place] [address] 09/25/2024 10:45 AM EDT Office Visit [facility] Cardiopulmonary Rehabilitation [address] [place] [address] Rickie Turner MD S/P TAVR (transcatheter aortic valve replacement) (Primary Dx) 09/23/2024 10:45 AM EDT Office Visit [facility] Cardiopulmonary Rehabilitation [address] [place] [address] Rickie Turner MD S/P TAVR (transcatheter aortic valve replacement) (Primary Dx) 11/15/2023 Procedure Pass [facility] Echo Lab [address] [place] [address] from Last 3 Months Immunizations Immunization Administration [...] Description 07/26/2025 11:20 AM EDT Office Visit [facility] [address] [place] [address] 3rd Floor, [address] [place] [address] Xavier Lee MD [address] [place] [address], [address] [place] [address] [email or web address] Due Date Last Done Comments [...] 03/09/2019, 12/15, 08/25/2013 RSV VACCINE Completed 03/30/2023 INFLUENZA VACCINE Completed 12/15/2024, , 01/02/2023, Additional history exists HIB VACCINES Aged Out No longer eligi ble based on patient's age to complete this topic MENINGOCOCCAL VACCINES (ACWY) Aged Out No longer eligible based on patient's age to complete this topic MENINGOCOCCAL VACCINES (B) Aged Out N o longer eligible based on patient's age to complete this topic Medical Devices Implanted Type Area Truck Driver Salesperson Device Identifier Shelf Expiration Date Model / Serial / Lot Commander Ultra 23mm S3 - [id number] Implanted:Qty : 1 on 11/14/2023 by Alex Cook MD at [facility] Prosthetic Valve Heart [employer] 05/09/2026 [id number] / [id number] / Bilateral Inguinal Mesh Procedures Procedure Name Priority Date/Time Associated Diagnosis Comments OUTSIDE US IMAGING REPORT ONLY Routine 12/17/2024 11:04 AM EDT OUTSIDE MR ABDOMEN REPORT ONLY Routine 12/03/2024 [...] Relevant to Health Maintenance Results * Outside US Imaging??Report Only (12/17/2024 11:04 AM EDT) Historical Provider MD [facility] US OP Final Res ult * Outside MR Abdomen Report Only (12/03/2024 11:20 AM EDT) Historical Provider MD [facility] MR ABDOMEN Final Res ult * (ABNORMAL) Comprehensive metabolic panel (11/07/2024 10:33 AM EDT) SODIUM 143 133 - 146 mmol/L [facility] POTASSIUM 4.2 3.3 - 5.1 mmol/L [facility] CHLORIDE 107 96 - 108 mmol/L [facility] CO2 24 21 - 35 mmol/L [facility] BUN 30(H) 6 - 19 mg/dL [facility] CREATININE 2.60(H) 0.5 - 1.5 mg/dL [facility] GLUCOSE 142(H) 70 - 99 mg/dL [facility] ALBUMIN 4.0 3.9 - 4.8 g/dL [facility] TOTAL PROTEIN 7.1 6.5 - 8.0 g/dL [facility] CALCIUM 9.1 8.4 - 10.3 mg/dL [facility] ALKALINE PHOSPHATASE 53 39 - 117 U/L [facility] TOTAL BILIRUBIN 0.3 0.0 - 1.2 mg/dL [facility] AST 13 0 - 37 U/L [facility] ALT 8 0 - 40 U/L [facility] GLOBULIN 3.1 1 - 4.8 g/dL [facility] EGFR 24(L) >59 mL/min/1.7 3m2 [facility] Comment:Estimated glomerular filtration rate calculated using the CKD-EPI refit equation. ANION GAP 16 10 - 20 mmol/L [facility] Blood 11/07/2024 10:3 3 AM EDT 11/07/2024 10:36 AM EDT Gerson [place] MD LAB BLOOD ORDERABLES Final R esult [facility] [address] [place] [address] * (ABNORMAL) PSA diagnostic (monitoring) (11/07/2024 10:33 AM EDT) PSA 11.70(H) 0 - 4.00 ng/mL [facility] Comment: Test Methodology Prylos e801 Patient results determined by assays using different manufacturers or methods may not be comparable. Blood 11/07/2024 10:3 3 AM EDT 11/07/2024 10:36 AM EDT us Gerson Mitchell MD LAB BLOOD ORDERABLES Final R esult Performing Organization Address City/[facility]/ZIP Co de Phone Number [address] [address] * (ABNORMAL) CBC (11/07/2024 10:33 AM EDT) WBC 8.08 4.00 - 11.00 K/uL [facility] RBC 4.40(L) 4.50 - 5.90 M/uL [facility] HGB 13.5 13.5 - 17.5 g/dL [facility] HCT 41.6 41.0 - 53.0 % [facility] PLT 144(L) 150 - 450 K/uL [facility] MCV 94.5 80.0 - 100.0 fL [facility] MCH 30.7 27.0 - 31.0 pg [facility] MCHC 32.5 32.0 - 36.0 g/dL [facility] RDW 13.5 11.5 - 14.5 % [facility] MPV 10.5 8.4 - 12.0 fL [facility] NRBC 0.00 0.00 /100 WBCs [facility] ABSOLUTE NRBC 0.00 0.00 K/uL [facility] Blood 11/07/2024 10:3 3 AM EDT 11/07/2024 10:36 AM EDT Gerson Mitchell MD LAB BLOOD ORDERABLES Final R esult Performing Organization Address City/[facility]/ZIP Co de Phone Number [address] [address] * Outside US Imaging??Report Only (10/28/2024 7:51 AM EDT) Historical Provider IMG US OP Final Res [...] (04/11/2024 8:30 AM EST) HDL 46 mg/dL [facility] Comment: Interpretation <40 mg/dL: Low HDL cholesterol (major risk factor for CHD) Greater than or equal to 60 mg/dL: High HDL cholesterol ( negative risk factor for CHD) HDL - cholesterol is affected by a number of factors, e.g. smoking, excerise, hormones, sex and age. CHOLESTEROL 185 0 - 240 mg/dL [facility] TRIGLYCERIDES 71 30 - 160 mg/dL [facility] LDL 125 50 - 129 mg/dL [facility] Comment: LDL levels in terms of risk for coronary heart disease: <100 mg/dL: Optimal 100-129 mg/dL: Near or above optimal 130-159 mg/dL: Borderline high 160-189 mg/dL: High >190 mg/dL: Very High CARDIAC RISK RATIO 4.0 3.4 - 5.0 C [facility] Blood 04/11/2024 8:30 AM EST 04/11/2024 8:34 AM EST Rickie Turner MD LAB BLOOD ORDERABLES Final Result [facility] [address] [place] [address] * COLONOSCOPY FOR RESULT ENTRY ONLY (03/25/2015) Colonoscopy The entire examined colon is normal on direct and retroflexion views. - The examined portion of the ileum was normal. - No specimens collected. Comment:5 year recall (perso nal history of polyps) Historical Provider HEALTH MAINTENANCE Final Result from Last 3 Months or Most Recently Relevant to Health Maintenance Insurance MEDICARE PART A & B [facility] MEDICARE SUPPLEMENT MEDICARE PART A & B [facility] MEDICARE SUPPLEMENT MEDICARE PART A & B [facility] MEDICARE SUPPLEMENT MEDICARE PART A & B [facility] MEDICARE SUPPLEMENT MEDICARE PART A & B MEDICARE SUPPLEMENT MEDICARE PART A & B MEDICARE SUPPLEMENT MEDICARE PART A & B MEDICARE SUPPLEMENT MEDICARE PART A & [place] [address] MEDICARE PART A & B [facility] MEDICARE SUPPLEMENT Advance Directives For more information, please contact: [phone] (9AM - 5PM [facility], Saturday-Saturday) * Full Code [...] 6:12 PM 07/28/2018 6:40 PM Care Teams End Maker Relationship Specialty Start Date End Date Gerson Mitchell MD [address] [place] [address] PCP - General Internal Medicine 02/26/17 Danay Roman NP [address] [place] [address] Historical LMR Provider 02/02/17 Abi Mcfarland, VICE PRESIDENT OF TALENT ACQUISITION [address] [place] [address] Historical LMR Provider 02/02/17 Gerson Mitchell MD [address] [place] [address] Insurance Assigned Provider 07/20/23 Rickie Turner MD [address] [place] [address] Cardiology 09/23/23 Additional Source Comments The information contained in this document represents components of the legal health record. It is not the complete legal health record.[facility]
--- OUTSIDE RECORDS SUMMARY | 2024-12-24 10:23 | XMS_ITS | Encounter Summary ---
Author Organization [facility] Address [address] [place] [address] Phone Care Team Providers Care Production Expert Name Role Phone Danay Roman ORDER TAKERS SUPERVISOR Unavailable [phone] Abi Mcfarland MEDICAL LAB TECH INSTRUCTOR Unavailable [phone] Gerson Mitchell MD Primary Care Provider [phone] Gerson Mitchell MD Unavailable [phone] Rikcie Turner MD Unavailable [phone] Reason for Referral * MRI/CAT Scan - Closed Specialty Diagnoses / Procedures Referred By Sher t Referred To Contact Radiology Diagnoses Aortic valve stenosis, etiology of cardiac valve disease unspecified Procedures CT 3D Reconstruction Stent Plan And Surv Alex Cook MD Phone: tel: fax: [email or web address] Referral ID Status Reason Start Date Expiration Date Visits Re quested Visits Authorized [id number] Closed 11/05/2023 11/04/2024 1 1 Encounter Details Date Type Department Care Team (Late st Contact Info) Description 11/05/2023 Ancillary Orders [facility] Cardiac Surgery [address] [place] [address] Alex Cook MD [address] [place] [address] [email or web address] Aortic valve stenosis, etiology of cardiac valve [...] Description 07/26/2025 11:20 AM EDT Office Visit [facility] [address] [place] [address] [address]rd Floor, [address] [place] [address] Xavier Lee MD 22 [facility], [address] [address] [email or web address] documented as of this encounter Results * [...] mm2 Perimeter: 73 mm Optimum gantry angles: CYMRO 0, CAU 16 PECAN MALLOW DIPPER 0, CYMRO 18 CYMRO 30, PECAN MALLOW DIPPER 12 Coronary ostia height: Right: 18.4 mm [...] in mild ostial stenosis. Total Coronary Plaque [place]: There is a moderate amount of coronary [...] mm2 Perimeter: 73 mm Optimum gantry angles: CYMRO 0, CAU 16 PECAN MALLOW DIPPER 0, CYMRO 18 CYMRO 30, PECAN MALLOW DIPPER 12 Coronary ostia height: Right: 18.4 mm [...] in mild ostial stenosis. Total Coronary Plaque [place]: There is a moderate amount of coronary [...] documented as of this encounter Care Teams Production Expert Relationship Specialty Start Date End Date [place] Mitchell MD [address] [place] [address] [address] [place] [address] [email or web address] PCP - General Internal Medicine 02/26/17 Danay Roman NP [address] [place] [address] [address] [place] [address] [email or web address] Historical LMR Provider 02/02/17 Abi Mcfarland CNP [address] [place] [address] [place] [address] [email or web address] Historical LMR Provider 02/02/17 [place] Mitchell MD [address] [place] [address] [place] [address] [email or web address] Insurance Assigned Provider 07/20/23 Rickie Turner MD [address] [place] [address], [address] [address] [email or web address] Cardiology 09/23/23 documented as of this encounter Additional Source Comments The information contained in this document represents components of the legal health record. It is not the complete legal health record.[facility]
--- OUTSIDE RECORDS SUMMARY | 2024-12-24 10:23 | XMS_ITS | Encounter Summary ---
Author Organization [facility] Address [address] [place] [address] Phone Care Team Providers Care Tariff Compiling Clerk Name Role Phone Gerson Mitchell MD Unavailable [phone] Danay Roman NP Unavailable [phone] Abi Mcfarland TRAIN GATE ATTENDANT Unavailable [phone] Rhett Willams MD Unavailable Unavailable Gerson Mitchell MD Primary Care Provider [phone] Gerson Mitchell MD Unavailable [phone] Gerson Mitchell MD Unavailable [phone] Rickie Turner MD Unavailable [phone] Encounter Details Date Type Department Care Team (Late st Contact Info) Description 11/13/2018 Procedure Pass [place] Admitting Dept - [facility] Department [address] [place] [address] Social History Tobacco Use Types Packs/Day Years [...] Description 07/26/2025 11:20 AM EDT Office Visit [facility] [address] [place] [address] 3rd Floor, [address] [place] [address] Xavier Lee MD 22 [facility], [address] [place] [address] [email or web address] documented as of this encounter Visit Diagnoses Not on filedocumented in this encounter Care Teams Tariff Compiling Clerk Relationship Specialty Start Date End Date Gerson Mitchell MD [address] [place] [address] [email or web address] PCP - General Internal Medicine 02/26/17 Gerson Mitchell MD [address] [place] [address] [email or web address] Historical LMR Provider 02/02/17 1 Danay Roman NP [address] [place] [address] [email or web address] Historical LMR Provider 02/02/17 Abi Mcfarland, TRAIN GATE ATTENDANT [address] [place] [address] [email or web address] Historical LMR Provider 02/02/17 Rhett Willams MD Historical LMR Provider 02/02/17 10/09/20 Gerson Mitchell MD [address] [place] [address] [email or web address] Insurance Assigned Provider 07/22/19 04/23/20 Gerson Mitchell MD [address] [place], [place] [address] [place] [address] [email or web address] Insurance Assigned Provider 07/20/23 Rickie Turner MD [address] [place] [address], [facility] [address] [place] [address] [email or web address] Cardiology 09/23/23 documented as of this encounter Additional Source Comments The information contained in this document represents components of the legal health record. It is not the complete legal health record.[facility]
--- OUTSIDE RECORDS SUMMARY | 2024-12-24 10:23 | XMS_ITS | Encounter Summary ---
Author Organization [facility] Address [address] [place] [address] [place] [address] Phone Care Team Providers Care Sod Stripper Name Role Phone Danay Roman AUTOMATION CONTROL INTEGRATOR Unavailable [phone] Abi Mcfarland GLASS FORMING ENGINEER Unavailable [phone] Gerson Mitchell MD Primary Care Provider [phone] Gerson Mitchell MD Unavailable [phone] Rickie Turner MD Unavailable [phone] Encounter Details Date Type Department Care Team (Late st Contact Info) Description 11/10/2023 Procedure Pass [facility] Echocardiography [address] [place] [address] Social History Tobacco Use Types Packs/Day Years [...] Description 07/26/2025 11:20 AM EDT Office Visit [facility] [address] [place] [address] 3rd Floor, [address] [place] [address] Xavier Lee MD [address] [place] [address] [email or web address] documented as of this encounter Visit Diagnoses Not on filedocumented in this encounter Additional Health Concerns Assessment Noted Time PHQ-2 Depression Total Score: 0 03/22/20 21 8:28 AM EST documented as of this encounter Care Teams Sod Stripper Relationship Specialty Start Date End Date Gerson Mitchell MD 14 [facility] [address] [place] [address] PCP - General Internal Medicine 02/26/17 Danay Roman NP 14 [facility] [address] [place] [address] Historical LMR Provider 02/02/17 Abi Mcfarland, YAMILA 14 [facility] [address] [place] [address] Historical LMR Provider 02/02/17 Gerson Mitchell MD [address] [place] [address] [address] [place] [address] [email or web address] Insurance Assigned Provider 07/20/23 Rickie Turner MD [address] [place] [address], [address] [address] [email or web address] Cardiology 09/23/23 documented as of this encounter Additional Source Comments The information contained in this document represents components of the legal health record. It is not the complete legal health record.[facility]
--- OUTSIDE RECORDS SUMMARY | 2024-12-24 10:23 | XMS_ITS | Encounter Summary ---
Author Organization [facility] Address [address] [place] [address] Phone Care Team Providers Care Farm Boss Name Role Phone Danay Roman POWDER CORE TESTER Unavailable [phone] Abi Mcfarland REAL ESTATE BROKER ASSOCIATE Unavailable [phone] Gerson Mitchell MD Primary Care Provider [phone] Gerson Mitchell MD Unavailable [phone] Rickie Turner MD Unavailable [phone] Encounter Details Date Type Department Care Team (Late st Contact Info) Description 09/04/2023 Procedure Pass [facility] [address] [place] [address] Social History Tobacco Use Types Packs/Day [...] Description 07/26/2025 11:20 AM EDT Office Visit [facility] 22 [facility] 3rd Floor, [address] [place] [address] Xavier Lee MD [address] [address] [email or web address] documented as of this encounter Visit Diagnoses Not on filedocumented in this encounter Additional Health Concerns Assessment Noted Time PHQ-2 Depression Total Score: 0 03/22/20 8:28 AM EST documented as of this encounter Care Teams Farm Boss Relationship Specialty Start Date End Date Gerson Mitchell MD [address] [place] [address] [place] [address] PCP - General Internal Medicine 02/26/17 Danay Roman NP [address] [place] [address] [place] [address] Historical LMR Provider 02/02/17 Abi Mcfarland, YAMILA [address] [place] [address] [place] [address] Historical LMR Provider 02/02/17 Gerson Mitchell MD [address] [place] [address] [place] [address] Insurance Assigned Provider 07/20/23 Rickie Turner MD [address] [place] [address], [address] [place] [address] Cardiology 09/23/23 documented as of this encounter Additional Source Comments The information contained in this document represents components of the legal health record. It is not the complete legal health record.[facility]
--- OUTSIDE RECORDS SUMMARY | 2024-12-24 10:23 | XMS_ITS | Encounter Summary ---
Author Organization [facility] Address [facility] [employer] [address] [address] Phone Care Team Providers Care General Medical Practitioner Name Role Phone Danay Roman SETTER MACHINE Unavailable [phone] Abi Mcfarland PRINT JOURNALIST Unavailable + [phone] Gerson Mitchell MD Primary Care Provider [phone] Gerson Mitchell MD Unavailable [phone] Rickie Turner MD Unavailable [phone] Encounter Details Date Type Department Care Team (Late st Contact Info) Description 11/15/2023 Procedure Pass [facility] [address] [place], [place] [id number] Social History Tobacco Use Types Packs/Day Years [...] Description 07/26/2025 11:20 AM EDT Office Visit [facility] [address] [place] [address] 3rd [facility], [address] [place] [address] Xavier Lee MD [address] [place] [address] [email or web address] documented as of this encounter Visit Diagnoses Not on filedocumented in this encounter Additional Health Concerns Assessment Noted Time PHQ-9 Depression Total Score: 4 02/26/20 24 10:35 AM EST PHQ-2 Depression Total Score: 0 03/22/20 21 8:28 AM EST documented as of this encounter Care Teams General Medical Practitioner Relationship Specialty Start Date End Date Gerson Mitchell MD [address] [place] [address] [place] [address] [email or web address] PCP - General Internal Medicine 02/26/17 Danay Roman NP [address] [place] [address] [place] [address] [email or web address] Historical LMR Provider 02/02/17 Abi Mcfarland CNP [address] [place] [address] [place] [address] [email or web address] Historical LMR Provider 02/02/17 Gerson Mitchell MD [address] [place] [address] [address] [place] [address] [email or web address] Insurance Assigned Provider 07/20/23 Rickie Turner MD [address] [place] [address] [email or web address] Cardiology 09/23/23 documented as of this encounter Additional Source Comments The information contained in this document represents components of the legal health record. It is not the complete legal health record.[facility]
--- OUTSIDE RECORDS SUMMARY | 2024-12-24 10:23 | XMS_ITS | Clinical Summary ---
Author Organization [facility], Address [address] [place] [phone] Phone Care Team Providers Care Residential Care Officer Name Role Phone Gerson Mitchell MD Primary Care Provider + [phone] Social History Tobacco Use Types Packs/Day Years [...] complete [place] [id number] Medicare [facility] Care Teams Residential Care Officer Relationship Specialty Start Date End Date Gerson Mitchell MD [address] [place] [address] [address] [place] [address] PCP - General Internal Medicine 09/02/24
--- OUTSIDE RECORDS SUMMARY | 2024-12-24 10:23 | XMS_ITS | Encounter Summary ---
Author Organization [facility] Address [address] [place] [address] [place] [address] Phone Care Team Providers Care Ic Engineer Name Role Phone Danay Roman BULWARK CARPENTER Unavailable [phone] Abi Mcfarland BUSINESS APPLICATIONS MANAGER Unavailable + [phone] Gerson Mitchell MD Primary Care Provider [phone] Gerson Mitchell MD Unavailable [phone] Rickie Turner MD Unavailable [phone] Encounter Details Date Type Department Care Team (Late st Contact Info) Description 11/10/2023 Procedure Pass [facility] Echocardiography [address] [place] [address] Social History Tobacco Use Types Packs/Day Years [...] Description 07/26/2025 11:20 AM EDT Office Visit [facility] [address] [place] [address] 3rd Floor, [address] [place] [address] Xavier [place] MD [address] [place] [address] [email or web address] documented as of this encounter Visit Diagnoses Not on filedocumented in this encounter Additional Health Concerns Assessment Noted Time PHQ-2 Depression Total Score: 0 03/22/20 21 8:28 AM EST documented as of this encounter Care Teams Ic Engineer Relationship Specialty Start Date End Date Gerson Mitchell MD 14 [facility] [address] [place] [address] PCP - General Internal Medicine 02/26/17 Danay Roman NP 14 [facility] [address] [place] [address] Historical LMR Provider 02/02/17 Abi Mcfarland, YAMILA 14 [facility] [address] [place] [address] Historical LMR Provider 02/02/17 Gerson Mitchell MD [address] [place] [address] [address] [place] [address] [email or web address] Insurance Assigned Provider 07/20/23 Rickie Turner MD [address] [place] [address], [address] [address] [email or web address] Cardiology 09/23/23 documented as of this encounter Additional Source Comments The information contained in this document represents components of the legal health record. It is not the complete legal health record.[facility]
--- OUTSIDE RECORDS SUMMARY | 2024-12-24 10:24 | XMS_ITS | Encounter Summary ---
Author Organization [facility] Address [address] [place] [address] [place] [address] Phone Care Team Providers Care Barrel And Receiver Aligner Name Role Phone Danay Roman HUMAN RESOURCES EXECUTIVE ASSISTANT Unavailable [phone] Abi Mcfarland GARBAGE TRUCK DISPATCHER Unavailable + [phone] Gerson Mitchell MD Primary Care Provider + [phone] Gerson Mitchell MD Unavailable [phone] Rickie Turner MD Unavailable [phone] Encounter Details Date Type Department Care Team (Late st Contact Info) Description 12/17/2024 Orders Only [facility] [place] [facility] [address] [address] [place] [address] Provider, MD Venus [address] [place], [place] [id number] Social History Tobacco Use Types Packs/Day Years [...] Description 07/26/2025 11:20 AM EDT Office Visit [facility] [address] [place] [address] 3rd Floor, [address] [place] [address] Xavier [place] MD [address] [place] [address] documented as of this encounter Procedures Procedure Name Priority Date/Time Associated Diagnosis Comments OUTSIDE US IMAGING REPORT ONLY Routine 12/17/2024 11:04 AM EDT documented in this encounter Results * Outside US Imaging??Report Only (12/17/2024 11:04 AM EDT) us Historical Provider MD [facility] US OP Final Res ult documented in this encounter Visit Diagnoses Not on filedocumented in this encounter Additional Health Concerns Assessment Noted Time PHQ-9 Depression Total Score: 4 02/26/20 24 10:35 AM EST PHQ-2 Depression Total Score: 0 03/22/20 21 8:28 AM EST documented as of this encounter Care Teams Barrel And Receiver Aligner Relationship Specialty Start Date End Date Gerson Mitchell MD 14 [facility] [address] [place] [address] [email or web address] PCP - General Internal Medicine 02/26/17 Danay Roman NP [address] [place] [address] [email or web address] Historical LMR Provider 02/02/17 Abi Mcfarland CNP [address] [place] [address] [email or web address] Historical LMR Provider 02/02/17 Gerson Mitchell MD [address] [place] [address] [email or web address] Insurance Assigned Provider 07/20/23 Rickie Turner MD [address] [place] [address] [email or web address] Cardiology 09/23/23 documented as of this encounter Additional Source Comments The information contained in this document represents components of the legal health record. It is not the complete legal health record.[facility]
--- OUTSIDE RECORDS SUMMARY | 2024-12-24 10:24 | XMS_ITS | Encounter Summary ---
Author Organization [facility] Address [address] [place] [address] Phone Care Team Providers Care Accounts Payable Specialist Name Role Phone Gerson Mitchell MD Unavailable [phone] Gerson Mitchell MD Unavailable [phone] Danay Roman PARTS COUNTER SPECIALIST Unavailable [phone] Abi Mcfarland HEALTH INFORMATION SPECIALIST Unavailable [phone] Rhett Willams MD Unavailable Unavailable Gesron Mitchell MD Primary Care Provider [phone] Gerson Mitchell MD Unavailable [phone] Gerson Mitchell MD Unavailable [phone] Rickie Turner MD Unavailable [phone] Encounter Details Date Type Department Care Team (Late st Contact Info) Description 07/27/2018 Procedure Pass [facility], [address] [address] Social History Tobacco Use Types Packs/Day Years [...] Description 07/26/2025 11:20 AM EDT Office Visit [facility] [address] [place] [address] 3rd Floor, [address] [place] [address] Xavier [place] MD 22 [facility], [address] [place] [address] [email or web address] documented as of this encounter Visit Diagnoses Not on filedocumented in this encounter Care Teams Accounts Payable Specialist Relationship Specialty Start Date End Date Gerson Mitchell MD [address] [place] [address] [email or web address] PCP - General Internal Medicine 02/26/17 Gerson Mitchell MD [address] [place] [address] [email or web address] Insurance Assigned Provider 01/19/17 10/25/18 Gerson Mitchell MD [address] [place] [address] [email or web address] Historical LMR Provider 02/02/17 1 Danay Roman, PARTS COUNTER SPECIALIST [address] [place] [address] [email or web address] Historical LMR Provider 02/02/17 Abi Mcfarland, HEALTH INFORMATION SPECIALIST [address] [place] [address] [email or web address] Historical LMR Provider 02/02/17 Rhett Willams MD Historical LMR Provider 02/02/17 10/09/20 Gerson Mitchell MD [address] [place] [address] [email or web address] Insurance Assigned Provider 07/22/19 04/23/20 Gerson Mitchell MD [address] [place] [address] [address] [place] [address] [email or web address] Insurance Assigned Provider 07/20/23 Rickie Turner MD [address] [place] [address], [address] [address] [email or web address] Cardiology 09/23/23 documented as of this encounter Additional Source Comments The information contained in this document represents components of the legal health record. It is not the complete legal health record.[facility]
--- OUTSIDE RECORDS SUMMARY | 2024-12-24 10:24 | XMS_ITS | Encounter Summary ---
Author Organization [facility] Address [facility] [address] [address] Phone Care Team Providers Care Redipper Name Role Phone Danay Roman KILN PLACER Unavailable [phone] Abi Mcfarland IT ADMINISTRATIVE ASSISTANT Unavailable [phone] Gerson Mitchell MD Primary Care Provider [phone] Gerson Mitchell MD Unavailable [phone] Rickie Turner MD Unavailable [phone] Encounter Details Date Type Department Care Team (Late st Contact Info) Description 11/15/2023 Procedure Pass Echo [facility] [address] [place] [address] Social History Tobacco Use Types Packs/Day [...] Description 07/26/2025 11:20 AM EDT Office Visit [facility] [address] [place] [address] 3rd [facility], [address] [place] [address] Xavier [place] MD [address] [place] [address] [email or web address] documented as of this encounter Visit Diagnoses Not on filedocumented in this encounter Additional Health Concerns Assessment Noted Time PHQ-2 Depression Total Score: 0 03/22/20 21 8:28 AM EST documented as of this encounter Care Teams Redipper Relationship Specialty Start Date End Date Gerson Mitchell MD [address] [place] [address] [address] [place] [address] [email or web address] PCP - General Internal Medicine 02/26/17 Danay Roman NP 14 [facility] [address] [place] [address] Historical LMR Provider 02/02/17 Abi Mcfarland, YAMILA 14 [facility] [address] [place] [address] [email or web address] Historical LMR Provider 02/02/17 Gerson Mitchell MD [address] [place] [address] [address] [place] [address] [email or web address] Insurance Assigned Provider 07/20/23 Rickie Turner MD [address] [place] [address] [email or web address] Cardiology 09/23/23 documented as of this encounter Additional Source Comments The information contained in this document represents components of the legal health record. It is not the complete legal health record.[facility]
--- OUTSIDE RECORDS SUMMARY | 2024-12-24 10:24 | XMS_ITS | Encounter Summary ---
Author Organization [facility] Address [address] [place] [address] Phone Care Team Providers Care Knitting Teacher Name Role Phone Gerson Mitchell MD Unavailable [phone] Gerson Mitchell MD Unavailable [phone] Danay Roman NP Unavailable [phone] Abi Mcfarland INSTRUCTOR BUSINESS EDUCATION Unavailable [phone] Rhett Willams MD Unavailable Unavailable Gerson Mitchell MD Primary Care Provider [phone] Gerson Mitchell MD Unavailable [phone] Gerson Mitchell MD Unavailable [phone] Rickie Turner MD Unavailable [phone] Encounter Details Date Type Department Care Team (Late st Contact Info) Description 12/05/2017 Ancillary Orders [facility] [place] [facility] 14 [facility] [address] [place], [place] [phone] Danay Roman, YONG 14 [facility] [address] [place], [place] [phone] [email or web address] Pain of left hip joint Social [...] Description 07/26/2025 11:20 AM EDT Office Visit [facility] 22 [facility] 3rd Floor, [address] [place] [address] Xavier [place] MD 22 [facility], [address] [place] [address] [email or web address] documented as of this encounter Results * [...] joint documented in this encounter Care Teams Knitting Teacher Relationship Specialty Start Date End Date Gerson Mitchell MD [address] [place] [address] [email or web address] PCP - General Internal Medicine 02/26/17 Gerson Mitchell MD [address] [place] [address] [email or web address] Insurance Assigned Provider 01/19/17 10/25/18 Gerson Mitchell MD [address] [place] [address] [email or web address] Historical LMR Provider 02/02/17 1 Danay Roman NP [address] [place] [address] [email or web address] Historical LMR Provider 02/02/17 Abi Mcfarland, YAMILA [address] [place] [address] [email or web address] Historical LMR Provider 02/02/17 Rhett Willams MD Historical LMR Provider 02/02/17 10/09/20 Gerson Mitchell MD [address] [place] [address] [email or web address] Insurance Assigned Provider 07/22/19 04/23/20 Gerson Mitchell MD [address] [place] [address] [email or web address] Insurance Assigned Provider 07/20/23 Rickie Turner MD [address] [place] [address], [facility] [address] [place] [address] [email or web address] Cardiology 09/23/23 documented as of this encounter Additional Source Comments The information contained in this document represents components of the legal health record. It is not the complete legal health record.[facility]
--- OUTSIDE RECORDS SUMMARY | 2024-12-24 10:24 | XMS_ITS | Encounter Summary ---
Author Organization [facility] Address [address] [place] [address] Phone Care Team Providers Care Assistant Professor Of Education Name Role Phone Gerson Mitchell MD Unavailable [phone] Gerson Mitchell MD Unavailable [phone] Danay Roman RADAR ENGINEER Unavailable [phone] Abi Mcfarland MULE DEVELOPER Unavailable [phone] Rhett Willams MD Unavailable Unavailable Gerson Mitchell MD Primary Care Provider [phone] Gerson Mitchell MD Unavailable [phone] Gerson Mitchell MD Unavailable [phone] Rickie Turner MD Unavailable [phone] Encounter Details Date Type Department Care Team (Late st Contact Info) Description 07/27/2018 Procedure Pass [facility], [address] [address] Social History Tobacco Use Types Packs/Day Years [...] Description 07/26/2025 11:20 AM EDT Office Visit [facility] [address] [place] [address] 3rd Floor, [address] [place] [address] Xavier [place] MD 22 [facility], [address] [place] [address] [email or web address] documented as of this encounter Visit Diagnoses Not on filedocumented in this encounter Care Teams Assistant Professor Of Education Relationship Specialty Start Date End Date Gerson Mitchell MD [address] [place] [address] [email or web address] PCP - General Internal Medicine 02/26/17 Gerson Mitchell MD [address] [place] [address] [email or web address] Insurance Assigned Provider 01/19/17 10/25/18 Gerson Mitchell MD [address] [place] [address] [email or web address] Historical LMR Provider 02/02/17 1 Danay Roman, RADAR ENGINEER [address] [place] [address] [email or web address] Historical LMR Provider 02/02/17 Abi Mcfarland, MULE DEVELOPER [address] [place] [address] [email or web address] Historical LMR Provider 02/02/17 Rhett Willams MD Historical LMR Provider 02/02/17 10/09/20 Gerson Mitchell MD [address] [place] [address] [email or web address] Insurance Assigned Provider 07/22/19 04/23/20 Gerson Mitchell MD [address] [place] [address] [address] [place] [address] [email or web address] Insurance Assigned Provider 07/20/23 Rickie Turner MD [address] [place] [address], [address] [address] [email or web address] Cardiology 09/23/23 documented as of this encounter Additional Source Comments The information contained in this document represents components of the legal health record. It is not the complete legal health record.[facility]
--- OUTSIDE RECORDS SUMMARY | 2024-12-24 10:24 | XMS_ITS | Encounter Summary ---
Author Organization [facility] Address [address] [place] [id number] Phone Care Team Providers Care Chainstitch Pants Outseamer Name Role Phone Gerson Mitchell MD Unavailable [phone] Gerson Mitchell MD Unavailable [phone] Danay Roman NP Unavailable [phone] Abi Mcfarland INTAKE MANAGER Unavailable [phone] Rhett Willams MD Unavailable Unavailable Gerson Mitchell MD Primary Care Provider [phone] Gerson Mitchell MD Unavailable [phone] Gerson Mitchell MD Unavailable [phone] Rickie Turner MD Unavailable [phone] Encounter Details Date Type Department Care Team (Late st Contact Info) Description 12/05/2017 Ancillary Orders [facility] [place] [facility] [address] [facility] [address] [place], [place] [id number] Danay oRman, YONG [address] [facility] [address] [place], [place] [phone] [email or web address] Pain of left hip joint Social [...] Description 07/26/2025 11:20 AM EDT Office Visit [facility] [address] [facility] [address], [address] [place] [address] Xavier Lee MD [address] [facility], [address] [place] [address] [email or web address] documented as of this encounter Results * [...] joint documented in this encounter Care Teams Chainstitch Pants Outseamer Relationship Specialty Start Date End Date Gerson Mitchell MD [address] [place] [phone] [email or web address] PCP - General Internal Medicine 02/26/17 Gerson Mitchell MD [address] [place] [phone] [email or web address] Insurance Assigned Provider 01/19/17 10/25/18 Gerson Mitchell MD [address] [place] [phone] [email or web address] Historical LMR Provider 02/02/17 1 Danay Roman NP [address] [place] [phone] [email or web address] Historical LMR Provider 02/02/17 Abi Mcfarland CNP [address] [place] [phone] [email or web address] Historical LMR Provider 02/02/17 Rhett Willams MD Historical LMR Provider 02/02/17 10/09/20 Gerson Mitchell MD [address] [place] [address] [email or web address] Insurance Assigned Provider 07/22/19 04/23/20 Gerson Mitchell MD [address] [place] [phone] [email or web address] Insurance Assigned Provider 07/20/23 Rickie Turner MD [address] [place] [address], [address] [address] [email or web address] Cardiology 09/23/23 documented as of this encounter Additional Source Comments The information contained in this document represents components of the legal health record. It is not the complete legal health record.[facility]
== END 2024-12-24 09:53 | disposition home or self-care (01) ==
LOC: HO.HUSH 09:06
PROVIDERS: PCP Internal Medicine; Visit Provider Urology
DX: Z13.9 Encounter for screening, unspecified (principal); N40.1 Benign prostatic hyperplasia with lower urinary tract symptoms
CPT/HCPCS: 99214; G2211

== ENCOUNTER → 2024-12-24 09:05 | Outpatient (BNVA) | payer MEDICARE, SELFPAY | PROVIDERS: PCP Internal Medicine; Visit Provider Urology | DX: N40.1 Benign prostatic hyperplasia with lower urinary tract symptoms (principal); N13.8 Other obstructive and reflux uropathy | CPT/HCPCS: 51798; 81003; 99212 ==